=== PATIENT | female | born 1945 | race Caucasian/White ===

== ENCOUNTER → 2018-03-16 07:13 | Outpatient (CLI) | payer MEDICARE, OTHER, SELFPAY ==
[2018-03-16 08:50] LABS: Alanine Aminotransferase 130 IU/L (9-52); Albumin 4.1 g/dL (3.5-5.0); Albumin Globulin Ratio 1.3 (1.0-2.8); Alkaline Phosphatase 319 U/L (38-126); Aspartate Aminotransferase 133 IU/L (14-36); BUN Creatinine Ratio 11.8 (6-22); Bilirubin Total 1.4 mg/dL (0.2-1.3); Blood Urea Nitrogen 13 mg/dL (7-17); Calcium 9.6 mg/dL (8.4-10.2); Carbon Dioxide 30 mmol/L (22-32); Chloride 94 mmol/L (98-107); Cholesterol 190 mg/dL (140-199); Estimated Glomerular Filt Rate 48.7 mL/min (>60); Globulin 3.2 g/dL (1.7-4.1); Glucose 97 mg/dL (80-110); HDL Cholesterol 55 mg/dL (40-60); HEMOLYSIS < 15 (0-50); LDL Cholesterol Calculated 116 mg/dL (<100); Potassium 3.4 mmol/L (3.4-5.1); Sodium 132 mmol/L (137-145); Total Protein 7.3 g/dL (6.3-8.2); Triglycerides 93 mg/dL (35-150)
== END ==
PROVIDERS: PCP Physician Assistant; Visit Provider Physician Assistant
DX: I10 Essential (primary) hypertension (principal); E78.2 Mixed hyperlipidemia
CPT/HCPCS: 36415; 80053; 80061

== ENCOUNTER → 2020-11-14 10:11 | Outpatient (CLI) | payer MEDICARE, OTHER, SELFPAY ==
[2020-11-14] MEDS: COVID-19 VACC, Ad26(JANSSEN)/PF 0.5 ML IM (10:30)
== END ==
PROVIDERS: PCP Physician Assistant; Visit Provider Internal Medicine
DX: Z23 Encounter for immunization (principal)
CPT/HCPCS: 0031A; 91303

== ENCOUNTER 2022-05-21 08:47 | Emergency (ER) | payer MEDICARE, OTHER, SELFPAY ==
[2022-05-21] VITALS (34 sets, daily range): BP systolic 131–195; BP diastolic 63–86; PULSE 58–109; RESP 12–29; TEMP 36.4; O2SAT 95–100; BMI 21.2
--- NOTE | 2022-05-21 09:34 | ED_ITS ---
HPI - Abdominal Pain <Kenia DO Ortega - Last Filed: 05/22/22 06:51> General Chief Complaint: Abdominal Pain Stated Complaint: Severe abd pain Time Seen by Provider: 05/21/22 09:10 Source: patient Mode of arrival: Family Vehicle History of Present Illness HPI narrative: Patient is a 77-year-old female history of asthma presenting today with severe abdominal pain. She says over last few months she has actually been feeling more energized fatigue she has been able to do projects and finish them. However over the last 1 week she has had increasing abdominal pain weakness fatigue. She appears jaundice which neither she or her say they have noticed. She feels like she has all across abdominal pain. She feels extremely nauseous she is able to drink cristina wes. She is having gas and bowel moveme nts. She has a prior cholecystectomy. No fever or chills. Related Data Home Medications Medication Instructions Recorded Confirmed cholecalciferol (vitamin D3) 25 1,000 unit PO DAILY 03/22/18 04/03/22 mcg (1,000 unit) capsule multivitamin 1 tab PO DAILY 04/03/22 04/03/22 potassium chloride PO 04/03/22 04/03/22 Previous Rx's Medication Instructions Recorded atenolol 100 mg-chlorthalidone 25 1 tab PO QDAY #90 tabs 09/21/17 mg tablet albuterol sulfate 90 mcg/actuation 2 puff inhalation Q4-6H PRN 12/08/21 aerosol inhaler shortness of breath #18 grams fluticasone propionate 115 2 puff inhalation BID #1 ea 12/08/21 mcg-salmeterol 21 mcg/actuation HFA inhaler (Advair HFA) fluticasone propionate 115 2 inh inhalation ONCE #8 grams 01/19/22 mcg-salmeterol 21 mcg/actuation HFA inhaler (Advair HFA) fluticasone propionate 50 1 spray intranasal BID PRN nasal 01/19/22 mcg/actuation nasal congestion #16 grams spray,suspension azithromycin 250 mg tablet See Rx Instructions PO .COMPLEX 04/03/22 possible sinus or chest infection #6 tabs methylprednisolone 4 mg tablets in See Rx Instructions PO PER PKG DIR 04/03/22 a dose pack (Medrol (Jasper)) #21 ea montelukast 10 mg tablet 10 mg PO DAILY #90 tabs 04/03/22 (Singulair) Allergies Allergy/AdvReac Type Severity Reaction Status Date / Time Penicillins [PENICILLINS] Allergy Severe ANAPHYLACTIC Verified 05/21/22 09:23 SHOCK latex [LATEX] Allergy Intermediate RASH Verified 05/21/22 09:23 codeine [CODEINE] AdvReac Severe FALSE Verified 05/21/22 09:23 HEART ATTACK SYMPTOMS hydrocodone AdvReac Severe made me Verified 05/21/22 09:23 violently ill and did nothing for the pain Review of Systems <Kenia Vivas DO - Last Filed: 05/22/22 06:51> Review of Systems Narrative: GENERAL: Denies chills, fatigue, malaise, fever, sweats, travel HEENT: Denies sinus pain, ear pain, sore throat, difficulty swallowing, neck pain RESPIRATORY: Denies dyspnea, cough, wheezing, hemoptysis, sputum. CARDIOVASCULAR: Denies chest pain, palpitations, orthopnea, edema GASTROINTESTINAL: See HPI : Denies dysuria, frequency, incontinence, hematuria, urinary retention, flank pain. MUSCULOSKELETAL: Denies weakness, joint pain, or bony pain SKIN: No rash, no erythema, no pruritus NEUROLOGIC: Denies weakness, dizziness, headache, numbness, change in speech, confusion PSYCHIATRIC: No concerning psychosocial issues. 12 point review of systems is negative except for those stated above and HPI Patient History <Kenia Vivas DO - Last Filed: 05/22/22 06:51> Medical History Asthma CKD (chronic kidney disease) Nasal congestion Family History Father Hyperlipidemia Social History Smoking Status: Former smoker Tobacco: How many years used: 30 second hand exposure: Yes (my smokes a pipe once a day.) alcohol intake: former (social drinker in the past.) substance use type: marijuana (1 puff once every 6 weeks.) Smoking Status: Former smoker tobacco type: cigarettes alcohol intake frequency: 0-2 drinks per day Substance Use Type: does not use Exam <Kenia Vivas DO - Last Filed: 05/22/22 06:51> Initial Vital Signs Initial Vital Signs: Vital Signs Pulse Rate 107 H 05/21/22 09:12 Pulse Oximetry 98 05/21/22 09:12 GENERAL: 77-year-old female obviously jaundiced appears in pain HEENT: Head atraumatic,EOMI, pupils reactive, face symmetric, moist mucous membranes CARDIOVASCULAR: Regular rate and rhythm without murmurs, rubs or gallops. RESPIRATORY: Breath sounds equal bilaterally, no wheezes rales or rhonchi. ABDOMEN: Soft,l no fluid wave diffusely tender no distension right upper quadrant scar EXTREMITIES: Normal range of motion, no clubbing or edema. Neurovascularly intact NEUROLOGICAL: Alert and oriented x4.Normal gait and speech. SKIN: Warm, dry, no laceration, no petechiae, no rashes or lesions. <Dilcia Wood, DO - Last Filed: 05/22/22 06:09> Initial Vital Signs Initial Vital Signs: Vital Signs Pulse Rate 107 H 05/21/22 09:12 Pulse Oximetry 98 05/21/22 09:12 Course <Kenia Vivas, DO - Last Filed: 05/22/22 06:51> Orders Ordered: Discontinued Medications Heparin Sodium (Porcine) (Heparin 5,000 Unit/Ml Vial) 5,000 unit SUBCUT BID [facility] Last Admin: 05/21/22 22:46 Dose: 5,000 unit Documented By: MIMI Sodium Chloride (Normal Saline 0.9%) 1,000 mls @ 125 mls/hr IV CONT [facility] Last Admin: 05/21/22 12:34 Dose: Not Given Documented By: ANGEL Levofloxacin (Levaquin) 750 mg in 150 mls @ 100 mls/hr IV NOW ONE Stop: 05/21/22 17:10 Last Infusion: 05/21/22 18:37 Dose: 0 mls/hr Documented By: Admin: 05/21/22 16:14 Dose: 100 mls/hr Documented By: MIMI Sodium Chloride (Normal Saline 0.9%) 1,000 mls @ 125 mls/hr IV CONT [facility] Last Infusion: 05/22/22 00:14 Dose: 125 mls/hr Documented By: Admin: 05/21/22 17:45 Dose: 125 mls/hr Documented By: SHIVANI Levofloxacin (Levaquin) 750 mg in 150 mls @ 100 mls/hr IV Q24H [facility] Lorazepam (Lorazepam 2 Mg/Ml Inj) 0.5 mg IV NOW ONE Stop: 05/21/22 11:36 Last Admin: 05/21/22 13:58 Dose: 0.5 mg Documented By: MIMI Morphine Sulfate (Morphine 2 Mg/Ml Inj) 2 mg IV NOW ONE Stop: 05/21/22 10:16 Last Admin: 05/21/22 10:30 Dose: 2 mg Documented By: ANGEL Morphine Sulfate (Morphine 4 Mg/Ml Inj) 4 mg IV NOW ONE Stop: 05/21/22 11:52 Last Admin: 05/21/22 12:04 Dose: 4 mg Documented By: ANGEL Morphine Sulfate (Morphine 2 Mg/Ml Inj) 2 mg IV Q4HR PRN PRN Reason: Pain, Moderate (4-6) Last Admin: 05/21/22 22:45 Dose: 2 mg Documented By: Admin: 05/21/22 18:34 Dose: 2 mg Documented By: ANGEL Ondansetron HCl (Ondansetron 4 Mg/2 Ml Inj) 4 mg IV NOW ONE Stop: 05/21/22 10:16 Last Admin: 05/21/22 10:30 Dose: 4 mg Documented By: ANGEL Ondansetron HCl (Ondansetron 4 Mg/2 Ml Inj) 4 mg IV Q4HR PRN PRN Reason: Nausea And Vomiting Last Admin: 05/22/22 00:13 Dose: 4 mg Documented By: MIMI Vital Signs Vital signs: Vital Signs - 8 hr 05/21/22 23:00 Pulse Rate 64 Respiratory Rate 12 Pulse Oximetry 99 <Dilcia Wood, - Last Filed: 05/22/22 06:09> Orders Ordered: Discontinued Medications Heparin Sodium (Porcine) (Heparin 5,000 Unit/Ml Vial) 5,000 unit SUBCUT BID [facility] Last Admin: 05/21/22 22:46 Dose: 5,000 unit Documented By: MIMI Sodium Chloride (Normal Saline 0.9%) 1,000 mls @ 125 mls/hr IV CONT [facility] Last Admin: 05/21/22 12:34 Dose: Not Given Documented By: ANGEL Levofloxacin (Levaquin) 750 mg in 150 mls @ 100 mls/hr IV NOW ONE Stop: 05/21/22 17:10 Last Infusion: 05/21/22 18:37 Dose: 0 mls/hr Documented By: Admin: 05/21/22 16:14 Dose: 100 mls/hr Documented By: MIMI Sodium Chloride (Normal Saline 0.9%) 1,000 mls @ 125 mls/hr IV CONT [facility] Last Infusion: 05/22/22 00:14 Dose: 125 mls/hr Documented By: Admin: 05/21/22 17:45 Dose: 125 mls/hr Documented By: MIMI Levofloxacin (Levaquin) 750 mg in 150 mls @ 100 mls/hr IV Q24H [facility] Lorazepam (Lorazepam 2 Mg/Ml Inj) 0.5 mg IV NOW ONE Stop: 05/21/22 11:36 Last Admin: 05/21/22 13:58 Dose: 0.5 mg Documented By: MIMI Morphine Sulfate (Morphine 2 Mg/Ml Inj) 2 mg IV NOW ONE Stop: 05/21/22 10:16 Last Admin: 05/21/22 10:30 Dose: 2 mg Documented By: ANGEL Morphine Sulfate (Morphine 4 Mg/Ml Inj) 4 mg IV NOW ONE Stop: 05/21/22 11:52 Last Admin: 05/21/22 12:04 Dose: 4 mg Documented By: ANGEL Morphine Sulfate (Morphine 2 Mg/Ml Inj) 2 mg IV Q4HR PRN PRN Reason: Pain, Moderate (4-6) Last Admin: 05/21/22 22:45 Dose: 2 mg Documented By: Admin: 05/21/22 18:34 Dose: 2 mg Documented By: ANGEL Ondansetron HCl (Ondansetron 4 Mg/2 Ml Inj) 4 mg IV NOW ONE Stop: 05/21/22 10:16 Last Admin: 05/21/22 10:30 Dose: 4 mg Documented By: ANGEL Ondansetron HCl (Ondansetron 4 Mg/2 Ml Inj) 4 mg IV Q4HR PRN PRN Reason: Nausea And Vomiting Last Admin: 05/22/22 00:13 Dose: 4 mg Documented By: SHIVANI Consultations Consultation #1: Dr. Zaidi, GI at [facility] accepts for consultation as to talk the hosp italist. Time: 22:06 Consultation #2: hospitalist [facility], Dr. Vega accepts for transfer Time: 22:43 Vital Signs Vital signs: Vital Signs - 8 hr 05/21/22 23:00 Pulse Rate 64 Respiratory Rate 12 Pulse Oximetry 99 MDM - Abdominal Pain <Kenia Vivas DO - Last Filed: 05/22/22 06:51> Lab Data Result diagrams: 05/21/22 09:27 05/21/22 09:27 Labs: Lab Results 05/21/22 05/21/22 05/21/22 Range/Units 09: 09: 09:27 WBC 12.1 H (4.5-11.0) X10^3/uL RBC 4.64 (4.0-5.2) X10^6/uL Hgb 13.6 (12.0-16.0) g/dL Hct 39.5 (36-46) % MCV 85.0 (80-100) fL MCH 29.2 (26-34) PG MCHC 34.3 (30-36) % RDW 13.4 (11.6-14.8) % Plt Count 203 (150-400) X10^3/uL Neut % (Auto) 91.2 H (50-75) % Lymph % (Auto) 3.4 L (25-40) % Garrard % (Auto) 4.0 (3-14) % Eos % (Auto) 1.0 L (2-4) % Baso % (Auto) 0.4 (0-2) % Neut # (Auto) 53329 H (7214-8537) /uL Lymph # (Auto) 400 L (9815-0509) /uL Garrard # (Auto) 500 (0-900) /uL Eos # (Auto) 100 (0-450) /uL Baso # (Auto) 100 (0-100) /uL Sodium 132 L (137-145) mmol/L Potassium 3.6 (3.4-5.1) mmol/L Chloride 95 L (98-107) mmol/L Carbon Dioxide 21 L (22-32) mmol/L BUN 17 (7-17) mg/dL Creatinine 0.82 (0.52-1.04) mg/dL Estimated GFR > 60 (>60) mL/min BUN/Creatinine Ratio 20.7 (6-22) Glucose 130 H (80-110) mg/dL Lactate (0.7-2.1) mmol/L Calcium 9.6 (8.4-10.2) mg/dL Total Bilirubin 6.0 H (0.2-1.3) mg/dL AST 148 H (14-36) IU/L ALT 126 H (<35) IU/L Alkaline Phosphatase 359 H (38-126) U/L Ammonia (9-30) umol/L Total Creatine Kinase (30-135) U/L CK-MB (CK-2) CK-MB (CK-2) Rel Index Troponin I (0.01-0.034) ng/mL Total Protein 7.5 (6.3-8.2) g/dL Albumin 3.7 (3.5-5.0) g/dL Globulin 3.8 (1.7-4.1) g/dL Albumin/Globulin Ratio 1.0 (1.0-2.8) Lipase 102 (23-300) U/L Procalcitonin (<0.5) ng/mL SARS-CoV-2 (PCR) Negative (Negative) 05/21/22 05/21/22 05/21/22 Range/Units 09:27 09:27 09:27 WBC (4.5-11.0) X10^3/uL RBC (4.0-5.2) X10^6/uL Hgb (12.0-16.0) g/dL Hct (36-46) % MCV (80-100) fL MCH (26-34) PG MCHC (30-36) % RDW (11.6-14.8) % Plt Count (150-400) X10^3/uL Neut % (Auto) (50-75) % Lymph % (Auto) (25-40) % Garrard % (Auto) (3-14) % Eos % (Auto) (2-4) % Baso % (Auto) (0-2) % Neut # (Auto) (6231-6897) /uL Lymph # (Auto) (0282-8818) /uL Garrard # (Auto) (0-900) /uL Eos # (Auto) (0-450) /uL Baso # (Auto) (0-100) /uL Sodium (137-145) mmol/L Potassium (3.4-5.1) mmol/L Chloride (98-107) mmol/L Carbon Dioxide (22-32) mmol/L BUN (7-17) mg/dL Creatinine (0.52-1.04) mg/dL Estimated GFR (>60) mL/min BUN/Creatinine Ratio (6-22) Glucose (80-110) mg/dL Lactate 1.4 (0.7-2.1) mmol/L Calcium (8.4-10.2) mg/dL Total Bilirubin (0.2-1.3) mg/dL AST (14-36) IU/L ALT (<35) IU/L Alkaline Phosphatase (38-126) U/L Ammonia (9-30) umol/L Total Creatine Kinase 50 (30-135) U/L CK-MB (CK-2) TNP CK-MB (CK-2) Rel Index TNP Troponin I < 0.012 (0.01-0.034) ng/mL Total Protein (6.3-8.2) g/dL Albumin (3.5-5.0) g/dL Globulin (1.7-4.1) g/dL Albumin/Globulin Ratio (1.0-2.8) Lipase (23-300) U/L Procalcitonin 0.87 H (<0.5) ng/mL SARS-CoV-2 (PCR) (Negative) 05/21/22 Range/Units 09:42 WBC (4.5-11.0) X10^3/uL RBC (4.0-5.2) X10^6/uL Hgb (12.0-16.0) g/dL Hct (36-46) % MCV (80-100) fL MCH (26-34) PG MCHC (30-36) % RDW (11.6-14.8) % Plt Count (150-400) X10^3/uL Neut % (Auto) (50-75) % Lymph % (Auto) (25-40) % Garrard % (Auto) (3-14) % Eos % (Auto) (2-4) % Baso % (Auto) (0-2) % Neut # (Auto) (4888-7729) /uL Lymph # (Auto) (0642-9899) /uL Garrard # (Auto) (0-900) /uL Eos # (Auto) (0-450) /uL Baso # (Auto) (0-100) /uL Sodium (137-145) mmol/L Potassium (3.4-5.1) mmol/L Chloride (98-107) mmol/L Carbon Dioxide (22-32) mmol/L BUN (7-17) mg/dL Creatinine (0.52-1.04) mg/dL Estimated GFR (>60) mL/min BUN/Creatinine Ratio (6-22) Glucose (80-110) mg/dL Lactate (0.7-2.1) mmol/L Calcium (8.4-10.2) mg/dL Total Bilirubin (0.2-1.3) mg/dL AST (14-36) IU/L ALT (<35) IU/L Alkaline Phosphatase (38-126) U/L Ammonia < 9 L (9-30) umol/L Total Creatine Kinase (30-135) U/L CK-MB (CK-2) CK-MB (CK-2) Rel Index Troponin I (0.01-0.034) ng/mL Total Protein (6.3-8.2) g/dL Albumin (3.5-5.0) g/dL Globulin (1.7-4.1) g/dL Albumin/Globulin Ratio (1.0-2.8) Lipase (23-300) U/L Procalcitonin (<0.5) ng/mL SARS-CoV-2 (PCR) (Negative) Imaging Data CT scan - abdomen/pelvis: Radiologist's Impression: t: Enriqueta Vasquez MR#: [id number] : 1945 Acct:[id number] Age/Sex: 77 / F Date of Service: 05/21/22 Loc: ED Accession Number: [id number] ?? Procedure: CT chest abd pel w con Ordering Provider: Kenia Vivas D.O. PROCEDURE:? CT CHEST ABD PEL W CON ? INDICATIONS:? elevated bili, ab pain possible CA ? TECHNIQUE:? After the administration of intravenous contrast, 5 mm thick sections acquired from the lung apices to the symphysis.? 5 mm coronal and sagittal reformats were performed, with additional 7 mm MIP reformats through the lungs.? For radiation dose reduction, the following was used:? automated exposure control, adjustment of mA and/or kV according to patient size.? ? COMPARISON:? None. ? FINDINGS:? Image quality:? Excellent.? ? CHEST:? Lungs and pleura:? No dense consolidation.? No pleural effusions or pneumothorax.? Follow-up for pulmonary micro nodules is optional.? For example left lower lobe image .? There are calcified granulomas. ? Mediastinum:? There are borderline enlarged lymph nodes, for example precarinal node measures 12 millimeters in short axis.? No thoracic aortic aneurysm.? Coronary artery calcifications. ? Chest wall:? Thyroid is within normal limits. ? ? ABDOMEN:? Solid organs:? Calcified liver granuloma.? Cyst in segment 4. Diffuse intrahepatic biliary ductal dilation.? The CBD is dilated up to 14 millimeters.? The gallbladder is absent.? The remnant cystic duct is also dilated.? There is a stone at the ampulla measuring 4-5 millimeters. ? Prominence of the pancreatic duct.? No significant pancreatic fat stranding. Prominent spleen measuring 12 centimeters.? No discrete adrenal nodule.? Subcentimeter renal lesions are too small to characterize.? No hydronephrosis. ? Peritoneum and bowel:? No bowel obstruction.? There are colonic diverticula.? No ascites. ? Nodes and vessels:? There are atherosclerotic calcifications.? No lymph nodes enlarged by size criteria.? No aneurysm. ? Miscellaneous:? No ventral hernias.? ? ? PELVIS:? Genitourinary:? Normal bladder wall thickness.? Possible small fibroids.? Reproductive organs are not well evaluated on CT, without gross abnormality. ? Miscellaneous:? Possible right Bartholin's gland cyst, could be correlated with visualization. ? Bones:? Spondylosis without acute or suspicious osseous abnormality.? Height loss of some vertebral bodies, age indeterminate, probably chronic. ? IMPRESSION:? Dilated biliary tree with an obstructing stone at the ampulla.? The pancreatic duct is also mildly prominent without a discrete mass identified.? Consider ERCP.? MRCP could be obtained only if further imaging is needed.? ? Borderline enlarged thoracic lymph nodes as above, indeterminate.? No definite signs of metastatic disease.? Other incidental findings above.? Follow up imaging could be obtained at clinical discretion.? ? ? Dictated by: Grant Abdullahi M.D. on 05/21/2022 at 10:58 ? ? Approved by: Grant Abdullahi M.D. on 05/21/2022 at 11:11? MRCP: Radiologist's Impression: PROCEDURE:? MR ABDOMEN WO CON ? INDICATIONS:? dilated CBD elevated bili ? TECHNIQUE:? Coronal HASTE through the abdomen, axial 2-D FLASH in- and [id number], and breath-hold T2 FSE with fat saturation through the biliary system and pancreas.? Oblique coronal and axial thin-slice HASTE, radial thick-slab HASTE centered on the extrahepatic bile ducts.? ? ? Intravenous secretin:? Not requested.? ? COMPARISON:? [facility], CT, CT CHEST ABD PEL W CON, 05/21/2022, 10:37. ? FINDINGS:? Image quality:? Adequate.? ? Pancreas and biliary system:? An 8 millimeter stone is present at the downstream extrahepatic bile duct.? There is upstream extrahepatic and intrahepatic biliary ductal dilation.? Extrahepatic duct measures approximately 10-11 millimeters at the [facility]. ? No definite dilation of the main pancreatic duct.? No MR evidence of acute pancreatitis or drainable peripancreatic fluid collection. ? Gallbladder is surgically absent.? ? Other solid organs:? Liver is normal in size.? Spleen is normal in size.? No adrenal nodules.? Both kidneys are normal in size, without hydronephrosis.? ? Nodes and vessels:? No retroperitoneal or mesenteric adenopathy by size criteria.? Aorta and inferior vena cava are normal in size.? ? Bowel and peritoneum:? Large duodenal diverticulum.? Visualized large and small bowel is non-dilated.? No substantial free fluid.? ? Lung bases:? No basal pleural effusions.? ? ? Bones and soft tissues:? No ventral hernias.? Bone marrow is of normal overall signal.? ? IMPRESSION:? Choledocholithiasis with biliary ductal dilation as before.? ? ? Dictated by: Audie Aj M.D. on 05/21/2022 at 15:14? ECG Data Interpretation: Sinus tachycardia rate 101 TX interval [address] changes no priors to compare MDM Narrative Medical decision making narrative: The patient is obviously jaundiced with prior cholecystectomy. Concern for possible cancer verses choledocholithiasis. She is found have elevated bili fuller of 6.0 mild elevation of liver enzymes. Minimal leukocytosis. CT does show dilated common bile duct with 4-5mm stone at ampulla. Same is found on MRCP. Patient has mild elevation of procalcitonin of 0.84. She is given a dose antibiotics all Levaquin she has a severe allergy to penicillins. She overall remains awake and alert she does not appear toxic or septic. She is placed on multiple lists, due to severe critical bed shortage unable to be placed. Patient needs an ERCP. [facility] has also been consulted. Patient is given clear liquids it is unknown when she will be transferred or have her procedure. Signed out to Dr. Wood <Dilcia Wood, DO - Last Filed: 05/22/22 06:09> Lab Data Labs: Lab Results 05/21/22 05/21/22 05/21/22 Range/Units 09:27 09:27 09:27 WBC 12.1 H (4.5-11.0) X10^3/uL RBC 4.64 (4.0-5.2) X10^6/uL Hgb 13.6 (12.0-16.0) g/dL Hct 39.5 (36-46) % MCV 85.0 (80-100) fL MCH 29.2 (26-34) PG MCHC 34.3 (30-36) % RDW 13.4 (11.6-14.8) % Plt Count 203 (150-400) X10^3/uL Neut % (Auto) 91.2 H (50-75) % Lymph % (Auto) 3.4 L (25-40) % Garrard % (Auto) 4.0 (3-14) % Eos % (Auto) 1.0 L (2-4) % Baso % (Auto) 0.4 (0-2) % Neut # (Auto) 18548 H (7306-7719) /uL Lymph # (Auto) 400 L (2880-6939) /uL Garrard # (Auto) 500 (0-900) /uL Eos # (Auto) 100 (0-450) /uL Baso # (Auto) 100 (0-100) /uL Sodium 132 L (137-145) mmol/L Potassium 3.6 (3.4-5.1) mmol/L Chloride 95 L (98-107) mmol/L Carbon Dioxide 21 L (22-32) mmol/L BUN 17 (7-17) mg/dL Creatinine 0.82 (0.52-1.04) mg/dL Estimated GFR > 60 (>60) mL/min BUN/Creatinine Ratio 20.7 (6-22) Glucose 130 H (80-110) mg/dL Lactate (0.7-2.1) mmol/L Calcium 9.6 (8.4-10.2) mg/dL Total Bilirubin 6.0 H (0.2-1.3) mg/dL AST 148 H (14-36) IU/L ALT 126 H (<35) IU/L Alkaline Phosphatase 359 H (38-126) U/L Ammonia (9-30) umol/L Total Creatine Kinase (30-135) U/L CK-MB (CK-2) CK-MB (CK-2) Rel Index Troponin I (0.01-0.034) ng/mL Total Protein 7.5 (6.3-8.2) g/dL Albumin 3.7 (3.5-5.0) g/dL Globulin 3.8 (1.7-4.1) g/dL Albumin/Globulin Ratio 1.0 (1.0-2.8) Lipase 102 (23-300) U/L Procalcitonin (<0.5) ng/mL SARS-CoV-2 (PCR) Negative (Negative) 05/21/22 05/21/22 05/21/22 Range/Units 09:27 09:27 09:27 WBC (4.5-11.0) X10^3/uL RBC (4.0-5.2) X10^6/uL Hgb (12.0-16.0) g/dL Hct (36-46) % MCV (80-100) fL MCH (26-34) PG MCHC (30-36) % RDW (11.6-14.8) % Plt Count (150-400) X10^3/uL Neut % (Auto) (50-75) % Lymph % (Auto) (25-40) % Garrard % (Auto) (3-14) % Eos % (Auto) (2-4) % Baso % (Auto) (0-2) % Neut # (Auto) (3049-8743) /uL Lymph # (Auto) (4372-9188) /uL Garrard # (Auto) (0-900) /uL Eos # (Auto) (0-450) /uL Baso # (Auto) (0-100) /uL Sodium (137-145) mmol/L Potassium (3.4-5.1) mmol/L Chloride (98-107) mmol/L Carbon Dioxide (22-32) mmol/L BUN (7-17) mg/dL Creatinine (0.52-1.04) mg/dL Estimated GFR (>60) mL/min BUN/Creatinine Ratio (6-22) Glucose (80-110) mg/dL Lactate 1.4 (0.7-2.1) mmol/L Calcium (8.4-10.2) mg/dL Total Bilirubin (0.2-1.3) mg/dL AST (14-36) IU/L ALT (<35) IU/L Alkaline Phosphatase (38-126) U/L Ammonia (9-30) umol/L Total Creatine Kinase 50 (30-135) U/L CK-MB (CK-2) TNP CK-MB (CK-2) Rel Index TNP Troponin I < 0.012 (0.01-0.034) ng/mL Total Protein (6.3-8.2) g/dL Albumin (3.5-5.0) g/dL Globulin (1.7-4.1) g/dL Albumin/Globulin Ratio (1.0-2.8) Lipase (23-300) U/L Procalcitonin 0.87 H (<0.5) ng/mL SARS-CoV-2 (PCR) (Negative) 05/21/22 Range/Units 09:42 WBC (4.5-11.0) X10^3/uL RBC (4.0-5.2) X10^6/uL Hgb (12.0-16.0) g/dL Hct (36-46) % MCV (80-100) fL MCH (26-34) PG MCHC (30-36) % RDW (11.6-14.8) % Plt Count (150-400) X10^3/uL Neut % (Auto) (50-75) % Lymph % (Auto) (25-40) % Garrard % (Auto) (3-14) % Eos % (Auto) (2-4) % Baso % (Auto) (0-2) % Neut # (Auto) (1558-0825) /uL Lymph # (Auto) (8383-3752) /uL Garrard # (Auto) (0-900) /uL Eos # (Auto) (0-450) /uL Baso # (Auto) (0-100) /uL Sodium (137-145) mmol/L Potassium (3.4-5.1) mmol/L Chloride (98-107) mmol/L Carbon Dioxide (22-32) mmol/L BUN (7-17) mg/dL Creatinine (0.52-1.04) mg/dL Estimated GFR (>60) mL/min BUN/Creatinine Ratio (6-22) Glucose (80-110) mg/dL Lactate (0.7-2.1) mmol/L Calcium (8.4-10.2) mg/dL Total Bilirubin (0.2-1.3) mg/dL AST (14-36) IU/L ALT (<35) IU/L Alkaline Phosphatase (38-126) U/L Ammonia < 9 L (9-30) umol/L Total Creatine Kinase (30-135) U/L CK-MB (CK-2) CK-MB (CK-2) Rel Index Troponin I (0.01-0.034) ng/mL Total Protein (6.3-8.2) g/dL Albumin (3.5-5.0) g/dL Globulin (1.7-4.1) g/dL Albumin/Globulin Ratio (1.0-2.8) Lipase (23-300) U/L Procalcitonin (<0.5) ng/mL SARS-CoV-2 (PCR) (Negative) [facility] Narrative Medical decision making narrative: The patient is obviously jaundiced with prior cholecystectomy. Concern for possible cancer verses choledocholithiasis. She is found have elevated bilirubin of 6.0 mild elevation of liver enzymes. Minimal leukocytosis. CT does show dilated common bile duct with 4-5mm stone at ampulla. Same is found on MRCP. Patient has mild elevation of procalcitonin of 0.84. She is given a dose antibiotics all Levaquin she has a severe allergy to penicillins. She overall remains awake and alert she does not appear toxic or septic. She is placed on multiple lists, due to severe critical bed shortage unable to be placed. Patient needs an ERCP. CC has also been consulted. Patient is given clear liquids it is unknown when she will be transferred or have her procedure. Signed out to Dr. Wood 05/21/22 Nina: Patient signed out to myself by Dr. Vivas. Patient was seen independently evaluated by myself she has had prior cholecystectomy, jaundiced on exam and has been found to have choledocholithiasis on MRCP with a bilirubin of 6 and mildly elevated liver enzymes with mild leukocytosis and positive procalcitonin. Patient does have blood cultures pending. Was given Levaquin re ceived 1st dose today, patient does not appear to be septic but has been continued to be monitored. Patient notes that she quit her atenolol/chlorthalidone is only taking her asthma medications. She states she lost a lot of weight so was no longer in her antihypertensives. She denies any aspirin, Plavix or other thinners. Case was discussed with gastroenterology and the hospitalist at [facility] patient was accepted for transfer for ERCP. Discharge Plan Departure Patient Disposition: [facility] Clinical Impression: Choledocholithiasis Prescriptions: No Action cholecalciferol (vitamin D3) 1,000 unit capsule 1,000 unit PO DAILY Advair HFA 115-21 mcg/actuation HFA aerosol inhaler 2 puff Inhalation BID Qty: 1 0RF albuterol sulfate 90 mcg/actuation HFA aerosol inhaler 2 puff INHALATION Q4-6H PRN (Reason: shortness of breath) Qty: 18 1RF Rx Instructions: administer with spacer Advair HFA 115-21 mcg/actuation HFA aerosol inhaler 2 inh inhalation ONCE Qty: 8 2RF fluticasone propionate 50 mcg/actuation spray,suspension 1 spray intranasal BID PRN (Reason: nasal congestion) Qty: 16 0RF Rx Instructions: administer into each nostril atenolol-chlorthalidone 100 MG/25 MG tablet 1 tab PO QDAY Qty: 90 3RF multivitamin Tablet 1 tab PO DAILY potassium chloride PO montelukast [Singulair] 10 mg tablet 10 mg PO DAILY Qty: 90 1RF azithromycin 250 mg tablet See Rx Instructions PO .COMPLEX Qty: 6 0RF Rx Instructions: For 250 mg dose pack: take 500 mg today (day 1), then 250 mg for 4 days (days 2-5) by mouth methylprednisolone [Medrol (Jasper)] 4 mg tablets,dose pack See Rx Instructions PO PER PKG DIR Qty: 21 0RF Rx Instructions: STEROID PER REQUEST BY MOUTH PER PACKAGE DIRECTION Referrals: Bob Richter MD [Primary Care Provider] -
[2022-05-21 09:40] LABS: Hematocrit 39.5 % (36-46); Hemoglobin 13.6 g/dL (12.0-16.0); Mean Corpuscular Hemoglobin 29.2 PG (26-34); Red Blood Cell Count 4.64 X10^6/uL (4.0-5.2); White Blood Cell Count 12.1 X10^3/uL (4.5-11.0)
[2022-05-21 09:41] LABS: Add Manual Diff / Slide Review NO; Basophils Absolute Auto 100 /uL (0-100); Basophils Percent Auto 0.4 % (0-2); Eosinophils Absolute Auto 100 /uL (0-450); Lymphocytes Absolute Auto 400 /uL (1100-4500); Lymphocytes Percent Auto 3.4 % (25-40); Mean Corpuscular HGB Conc 34.3 % (30-36); Monocytes Absolute Auto 500 /uL (0-900); Neutrophils Absolute Auto 11000 /uL (1500-7000); Neutrophils Percent Auto 91.2 % (50-75); Platelet Count 203 X10^3/uL (150-400); Red Cell Distribution Width 13.4 % (11.6-14.8)
[2022-05-21 09:59] LABS: Lactate (Lactic Acid) 1.4 mmol/L (0.7-2.1)
[2022-05-21 10:00] LABS: Creatine Kinase 50 U/L (30-135)
[2022-05-21 10:02] LABS: Alanine Aminotransferase 126 IU/L (<35); Albumin 3.7 g/dL (3.5-5.0); Alkaline Phosphatase 359 U/L (38-126); Aspartate Aminotransferase 148 IU/L (14-36); BUN Creatinine Ratio 20.7 (6-22); Blood Urea Nitrogen 17 mg/dL (7-17); Calcium 9.6 mg/dL (8.4-10.2); Carbon Dioxide 21 mmol/L (22-32); Chloride 95 mmol/L (98-107); Estimated Glomerular Filt Rate > 60 mL/min (>60); Globulin 3.8 g/dL (1.7-4.1); Glucose 130 mg/dL (80-110); HEMOLYSIS 29 (0-50); Lipase 102 U/L (23-300); Potassium 3.6 mmol/L (3.4-5.1); Sodium 132 mmol/L (137-145); Total Protein 7.5 g/dL (6.3-8.2)
[2022-05-21 10:04] LABS: COVID19 -Nasal RAPID Negative (Negative)
[2022-05-21 10:05] LABS: Ammonia (NH3) < 9 umol/L (9-30)
[2022-05-21 10:11] LABS: Troponin I < 0.012 ng/mL (0.01-0.034)
[2022-05-21 10:17] LABS: Procalcitonin 0.87 ng/mL (<0.5)
--- NOTE | 2022-05-21 10:28 | DI.CT.S_ITS ---
PROCEDURE: CT CHEST ABD PEL W CON INDICATIONS: elevated bili, ab pain possible CA TECHNIQUE: After the administration of intravenous contrast, 5 mm thick sections acquired from the lung apices to the symphysis. 5 mm coronal and sagittal reformats were performed, with additional 7 mm MIP reformats through the lungs. For radiation dose reduction, the following was used: automated exposure control, adjustment of mA and/or kV according to patient size. COMPARISON: None. FINDINGS: Image quality: Excellent. CHEST: Lungs and pleura: No dense consolidation. No pleural effusions or pneumothorax. Follow-up for pulmonary micro nodules is optional. For example left lower lobe image . There are calcified granulomas. Mediastinum: There are borderline enlarged lymph nodes, for example precarinal node measures 12 millimeters in short axis. No thoracic aortic aneurysm. Coronary artery calcifications. Chest wall: Thyroid is within normal limits. ABDOMEN: Solid organs: Calcified liver granuloma. Cyst in segment 4. Diffuse intrahepatic biliary ductal dilation. The CBD is dilated up to 14 millimeters. The gallbladder is absent. The remnant cystic duct is also dilated. There is a stone at the ampulla measuring 4-5 millimeters. Prominence of the pancreatic duct. No significant pancreatic fat stranding. Prominent spleen measuring 12 centimeters. No discrete adrenal nodule. Subcentimeter renal lesions are too small to characterize. No hydronephrosis. Peritoneum and bowel: No bowel obstruction. There are colonic diverticula. No ascites. Nodes and vessels: There are atherosclerotic calcifications. No lymph nodes enlarged by size criteria. No aneurysm. Miscellaneous: No ventral hernias. PELVIS: Genitourinary: Normal bladder wall thickness. Possible small fibroids. Reproductive organs are not well evaluated on CT, without gross abnormality. Miscellaneous: Possible right Bartholin's gland cyst, could be correlated with visualization. Bones: Spondylosis without acute or suspicious osseous abnormality. Height loss of some vertebral bodies, age indeterminate, probably chronic. IMPRESSION: Dilated biliary tree with an obstructing stone at the ampulla. The pancreatic duct is also mildly prominent without a discrete mass identified. Consider ERCP. MRCP could be obtained only if further imaging is needed. Borderline enlarged thoracic lymph nodes as above, indeterminate. No definite signs of metastatic disease. Other incidental findings above. Follow up imaging could be obtained at clinical discretion. Dictated by: Grant Abdullahi M.D. on 05/21/2022 at 10:58 Approved by: Grant Abdullahi M.D. on 05/21/2022 at 11:11
[2022-05-21] MEDS: MORPHINE 2 MG/ML INJ IV ×3 (10:30→22:45)
[2022-05-21] MEDS: ONDANSETRON 4 MG/2 ML INJ IV (10:30)
[2022-05-21] MEDS: MORPHINE 4 MG/ML INJ IV (12:04)
[2022-05-21] MEDS: LORazepam 2 MG/ML INJ 0.5 MG IV (13:58)
--- NOTE | 2022-05-21 14:32 | DI.MRI.S_ITS ---
PROCEDURE: MR ABDOMEN WO CON INDICATIONS: dilated CBD elevated bili TECHNIQUE: Coronal HASTE through the abdomen, axial 2-D FLASH in- and [id number], and breath-hold T2 FSE with fat saturation through the biliary system and pancreas. Oblique coronal and axial thin-slice HASTE, radial thick-slab HASTE centered on the extrahepatic bile ducts. Intravenous secretin: Not requested. COMPARISON: [facility], CT, CT CHEST ABD PEL W CON, 05/21/2022, 10:37. FINDINGS: Image quality: Adequate. Pancreas and biliary system: An 8 millimeter stone is present at the downstream extrahepatic bile duct. There is upstream extrahepatic and intrahepatic biliary ductal dilation. Extrahepatic duct measures approximately 10-11 millimeters at the charity hepatis. No definite dilation of the main pancreatic duct. No MR evidence of acute pancreatitis or drainable peripancreatic fluid collection. Gallbladder is surgically absent. Other solid organs: Liver is normal in size. Spleen is normal in size. No adrenal nodules. Both kidneys are normal in size, without hydronephrosis. Nodes and vessels: No retroperitoneal or mesenteric adenopathy by size criteria. Aorta and inferior vena cava are normal in size. Bowel and peritoneum: Large duodenal diverticulum. Visualized large and small bowel is non-dilated. No substantial free fluid. Lung bases: No basal pleural effusions. Bones and soft tissues: No ventral hernias. Bone marrow is of normal overall signal. IMPRESSION: Choledocholithiasis with biliary ductal dilation as before. Dictated by: Audie Aj M.D. on 05/21/2022 at 15:14 Approved by: Audie Aj M.D. on 05/21/2022 at 15:30
[2022-05-21] MEDS: levoFLOXacin 750 MG/150 ML PIGGYBACK 100 MG IV (16:14)
[2022-05-21] MEDS: SODIUM CHLORIDE 0.9% 1,000 ML 125 ML IV (17:45)
--- NOTE | 2022-05-21 19:11 | PC.NURSE ---
Patient up to restroom with standby assistance. Tolerated well. Patient repositioned into hospital bed for the night. Provided chicken broth, clear liquid diet ok per Dr Vivas. Patient call light in reach.
[2022-05-21] MEDS: HEPARIN 5,000 UNIT/ML VIAL 5000 UNIT SUBCUT (22:46)
--- NOTE | 2022-05-21 23:40 | PC.NURSE ---
Report given to Ramses AWAN, transportation set up. Patient updated.
--- NOTE | 2022-05-22 00:10 | PC.NURSE ---
Emesis after moving from hospital bed to stretcher. Reports easing up after emesis. Approx 200 bile.
[2022-05-22] MEDS: ONDANSETRON 4 MG/2 ML INJ IV (00:13)
== END 2022-05-22 00:24 | disposition short-term general hospital (02) ==
PROVIDERS: Emergency Medicine; Emergency Provider Emergency Medicine; PCP Pediatrics
DX: K80.50 Calculus of bile duct without cholangitis or cholecystitis without obstruction (principal); R79.89 Other specified abnormal findings of blood chemistry; R11.2 Nausea with vomiting, unspecified; Z20.822 Contact with and (suspected) exposure to COVID-19
CPT/HCPCS: 36415; 71260; 74177; 74181; 80053; 82140; 82550; 83605; 83690; 84145; 84484; 85025; 87040; 87635; 93005; 96361; 96365; 96366; 96375; 96376; 99285; C9803; J1644; J1956; J2060; J2270; J2405; Q9967

== ENCOUNTER → 2023-07-06 08:01 | Outpatient (CLI) | payer MEDICARE, OTHER, SELFPAY ==
[2023-07-06 09:15] LABS: Add Manual Diff / Slide Review NO; Basophils Absolute Auto 100 /uL (0-100); Basophils Percent Auto 1.3 % (0-2); Eosinophils Absolute Auto 700 /uL (0-450); Eosinophils Percent Auto 10.7 % (2-4); Hematocrit 35.5 % (36-46); Hemoglobin 12.3 g/dL (12.0-16.0); Lymphocytes Absolute Auto 1700 /uL (1100-4500); Lymphocytes Percent Auto 28.1 % (25-40); Mean Corpuscular HGB Conc 34.6 % (30-36); Mean Corpuscular Hemoglobin 30.3 PG (26-34); Mean Corpuscular Volume 87.5 fL (80-100); Monocytes Absolute Auto 400 /uL (0-900); Monocytes Percent Auto 6.1 % (3-14); Neutrophils Absolute Auto 3300 /uL (1500-7000); Neutrophils Percent Auto 53.8 % (50-75); Platelet Count 200 X10^3/uL (150-400); Red Blood Cell Count 4.06 X10^6/uL (4.0-5.2); Red Cell Distribution Width 13.3 % (11.6-14.8); White Blood Cell Count 6.1 X10^3/uL (4.5-11.0)
[2023-07-06 09:41] LABS: Alanine Aminotransferase 14 IU/L (<35); Albumin 3.9 g/dL (3.5-5.0); Albumin Globulin Ratio 1.4 (1.0-2.8); Alkaline Phosphatase 73 U/L (38-126); Aspartate Aminotransferase 29 IU/L (14-36); Bilirubin Total 0.6 mg/dL (0.2-1.3); Blood Urea Nitrogen 15 mg/dL (7-17); Calcium 9.7 mg/dL (8.4-10.2); Carbon Dioxide 28 mmol/L (22-32); Chloride 93 mmol/L (98-107); Estimated Glomerular Filt Rate 58 mL/min (>60); Globulin 2.8 g/dL (1.7-4.1); Glucose 88 mg/dL (80-110); HEMOLYSIS < 15 (0-50); Potassium 3.9 mmol/L (3.4-5.1); Sodium 128 mmol/L (137-145); Total Protein 6.7 g/dL (6.3-8.2)
== END ==
PROVIDERS: PCP Family Medicine; Referring Provider Family Medicine; Visit Provider Family Medicine
DX: R74.8 Abnormal levels of other serum enzymes (principal); N18.9 Chronic kidney disease, unspecified; E78.2 Mixed hyperlipidemia; I10 Essential (primary) hypertension
CPT/HCPCS: 36415; 80053; 85025

== ENCOUNTER → 2023-10-30 12:32 | Outpatient (CLI) | payer MEDICARE, OTHER, SELFPAY ==
[2023-10-30 14:12] LABS: COVID-19 CEPHEID 4-PLEX PCR Negative (Negative); Influenza A - CEPHEID Flu A NEGATIVE (NEGATIVE); Influenza B - CEPHEID Flu B NEGATIVE (NEGATIVE); Respiratory Syncytial Virus Negative (Negative)
== END ==
PROVIDERS: PCP Family Medicine; Visit Provider Registered Nurse
DX: R52 Pain, unspecified (principal); R50.9 Fever, unspecified; R19.7 Diarrhea, unspecified; R53.1 Weakness
CPT/HCPCS: 0241U

== ENCOUNTER 2023-11-06 12:39 | Inpatient (IN) | payer MEDICARE, OTHER, SELFPAY ==
[2023-11-06 13:00] VITALS: BP 113/57; PULSE 70; RESP 18; TEMP 36.4; O2SAT 99; BMI 23.1
--- NOTE | 2023-11-06 13:32 | ED_ITS ---
<Statement entered by Yves Morales MD - 11/06/23 19:06> I spoke with LETA about this patient and recommended admission, with admission as detailed above. HPI - Back Pain/Injury General Chief Complaint: Back Pain/Injury Stated Complaint: pain in pelvis and legs Time Seen by Provider: 11/06/23 13:10 Source: patient History of Present Illness HPI Narrative: This is a 78-year-old female presenting to the emergency department complaining of a radiating pain that is affecting her upper thighs. She also reports some pelvic pain as well as 2 days ago having dysuria although no dysuria or urinary frequency now. She states that this all began about a week ago after she had a ?stomach bug? with nausea and vomiting as well as diarrhea. The GI symptoms have improved but she was reporting some pelvic pain that ?moves all over? affecting her thighs currently. Worse at night. Denies any nausea, vomiting, lightheadedness, chest pain, shortness of breath, or any other concerning signs or symptoms. Denies any vaginal discharge. Related Data Home Medications Medication Instructions Recorded Confirmed cholecalciferol (vitamin D3) 25 1,000 unit PO DAILY 03/22/18 10/30/23 mcg (1,000 unit) capsule multivitamin 1 tab PO DAILY 04/03/22 10/30/23 potassium chloride PO 04/03/22 10/30/23 Previous Rx's Medication Instructions Recorded fluticasone propionate 50 1 spray intranasal BID PRN nasal 01/19/22 mcg/actuation nasal congestion #16 grams spray,suspension ascorbic acid (vitamin C) 1 g PO Q6H PRN constipation #113 05/30/22 grams docusate sodium 100 mg capsule 100 mg PO DAILY PRN constipation 05/30/22 (DulcoEase) #30 caps magnesium oxide 500 mg capsule 500 mg PO BID PRN constipation #90 05/30/22 caps albuterol sulfate 90 mcg/actuation 2 puff inhalation Q4-6H PRN 01/28/23 aerosol inhaler shortness of breath #36 grams montelukast 10 mg tablet 10 mg PO DAILY #90 tabs 09/03/23 (Singulair) budesonide-formoterol HFA 80 1 inh inhalation BID #10.2 grams 09/21/23 mcg-4.5 mcg/actuation aerosol inhaler (Symbicort) carvedilol 3.125 mg tablet 3.125 mg PO BID #180 tabs 09/21/23 atenolol 100 mg-chlorthalidone 25 1 tab PO QDAY #90 tabs 10/09/23 mg tablet levothyroxine 25 mcg tablet 25 mcg PO DAILY #90 tabs 10/09/23 Allergies Allergy/AdvReac Type Severity Reaction Status Date / Time Penicillins [PENICILLINS] Allergy Severe ANAPHYLACTIC Verified 10/30/23 12:21 SHOCK latex [LATEX] Allergy Intermediate RASH Verified 10/30/23 12:21 codeine [CODEINE] AdvReac Severe FALSE Verified 10/30/23 12:21 HEART ATTACK SYMPTOMS hydrocodone AdvReac Severe made me Verified 10/30/23 12:21 violently ill and did nothing for the pain Review of Systems Review of Systems Narrative: GENERAL: Denies chills, fatigue, malaise, fever, sweats. HEENT: Denies sinus pain, ear pain, sore throat, difficulty swallowing, dizziness. RESPIRATORY: Denies dyspnea, cough, wheezing, hemoptysis, sputum. CARDIOVASCULAR: Denies chest pain, palpitations, orthopnea, edema, GASTROINTESTINAL: Denies nausea, vomiting, abdominal pain, diarrhea, constipation, melena. : Reports some pelvic pain, Denies dysuria, frequency, incontinence, hematuria, urinary retention. MUSCULOSKELETAL: Reports upper thigh pain, denies weakness, joint pain, or bony pain SKIN: Denies rash, skin lesions, or other NEUROLOGIC: Denies weakness, headache, numbness, change in speech, confusion, seizures, incoordination. PSYCHIATRIC: No concerning psychosocial issues. 12 point review of systems is negative except for those stated above Patient History Medical History Essential hypertension Bilateral leg edema Asthma Nasal congestion CKD (chronic kidney disease) Family History Father Hyperlipidemia Social History Smoking Status: Former smoker Tobacco: How many years used: 30 second hand exposure: Yes (my smokes a pipe once a day.) alcohol intake: former (social drinker in the past.) substance use type: marijuana (1 puff once every 6 weeks.) Smoking Status: Former smoker tobacco type: cigarettes alcohol intake frequency: 0-2 drinks per day Substance Use Type: does not use Exam Narrative Exam Narrative: GENERAL: Well-developed patient, in mild distress. HEAD: Atraumatic. Normocephalic. EYES: Pupils equal round and reactive. Extraocular motions intact. No scleral icterus. No injection or drainage. ENT: Nose without bleeding, purulent drainage. Throat without erythema, tonsillar hypertrophy or exudate. Airway patent. NECK: Trachea midline. Non tender EXTREMITIES: No edema or joint tenderness. NEURO: AOx3. SKIN: No rash or erythema of visible areas CARDIOVASCULAR: Regular rate and rhythm without murmurs, gallops, or rubs. RESPIRATORY: Clear to auscultation. Breath sounds equal bilaterally. No wheezes, rales, or rhonchi. GASTROINTESTINAL: Abdomen soft, non-tender, nondistended. BACK: Nontender without deformity or crepitance. No flank tenderness. Initial Vital Signs Initial Vital Signs: Vital Signs Temperature 97.5 F L 11/06/23 13:00 Pulse Rate 70 11/06/23 13:00 Respiratory Rate 18 11/06/23 13:00 Blood Pressure 113/57 L 11/06/23 13:00 Pulse Oximetry 99 11/06/23 13:00 Oxygen Delivery Method Room Air 11/06/23 13:00 Course Orders Ordered: ED Orders 11/06/23 14:17 CBC Auto Diff [Complete Blood Count AUTO DIFF] Stat CMP [Comprehensive Metabolic Panel] Stat 11/06/23 15:05 Sodium Urine Random Stat Urinalysis and Microscopic Stat 11/06/23 16:44 CT abdomen pelvis wo con Stat Discontinued Medications Sodium Chloride (Normal Saline 0.9%) 1,000 mls @ 1,000 mls/hr IV BOLUS ONE Stop: 11/06/23 16:27 Last Infusion: 11/06/23 16:49 Dose: 1,000 mls/hr Documented By: Admin: 11/06/23 15:38 Dose: 1,000 mls/hr Documented By: RB POTASSIUM CHLORIDE IN WATER (Potassium Cl 10 Meq/100 Ml Nicole) 10 meq in 100 mls @ 100 mls/hr IV Q1H MANUELITO Stop: 11/06/23 17:29 Last Infusion: 11/06/23 17:07 Dose: 100 mls/hr Documented By: Infusion: 11/06/23 16:51 Dose: 0 mls/hr Documented By: Admin: 11/06/23 16:50 Dose: 100 mls/hr Documented By: Infusion: 11/06/23 16:49 Dose: Infused Documented By: Admin: 11/06/23 15:38 Dose: 100 mls/hr Documented By: RB Potassium Chloride (Potassium Chloride 20 Meq/15 Ml Udc) 40 meq PO NOW ONE Stop: 11/06/23 15:29 Last Admin: 11/06/23 15:40 Dose: 40 meq Documented By: RB Vital Signs Vital signs: Vital Signs - 8 hr 11/06/23 13:00 11/06/23 14:06 11/06/23 15:33 Temperature 97.5 F L 97.8 F 98.3 F Pulse Rate 70 68 67 Respiratory Rate 18 18 18 Blood Pressure 113/57 L 140/62 132/61 Pulse Oximetry 99 99 100 Oxygen Delivery Method Room Air Room Air Room Air 11/06/23 17:08 Temperature 98.7 F Pulse Rate 70 Respiratory Rate 20 Blood Pressure 126/71 Pulse Oximetry 97 Oxygen Delivery Method Room Air MDM - Back Pain/Injury Lab Data 11/06/23 14:17 11/06/23 14:17 Labs: Lab Results 11/06/23 11/06/23 Range/Units 14:17 15:05 WBC 9.1 (4.5-11.0) X10^3/uL RBC 4.06 (4.0-5.2) X10^6/uL Hgb 11.9 L (12.0-16.0) g/dL Hct 33.6 L (36-46) % MCV 82.9 (80-100) fL MCH 29.4 (26-34) PG MCHC 35.5 (30-36) % RDW 12.8 (11.6-14.8) % Plt Count 327 (150-400) X10^3/uL Neut % (Auto) 57.0 (50-75) % Lymph % (Auto) 20.3 L (25-40) % [place] % (Auto) 6.2 (3-14) % Eos % (Auto) 15.3 H (2-4) % Baso % (Auto) 1.2 (0-2) % Neut # (Auto) 5200 (9797-9764) /uL Lymph # (Auto) 1800 (5147-2747) /uL [place] # (Auto) 600 (0-900) /uL Eos # (Auto) 1400 H (0-450) /uL Baso # (Auto) 100 (0-100) /uL Sodium 123 L (137-145) mmol/L Potassium 3.0 L (3.4-5.1) mmol/L Chloride 88 L (98-107) mmol/L Carbon Dioxide 27 (22-32) mmol/L BUN 22 H (7-17) mg/dL Creatinine 0.86 (0.52-1.04) mg/dL Estimated GFR > 60 (>60) mL/min BUN/Creatinine Ratio 25.6 H (6-22) Glucose 147 H (80-110) mg/dL Calcium 9.6 (8.4-10.2) mg/dL Total Bilirubin 0.9 (0.2-1.3) mg/dL AST 28 (14-36) IU/L ALT 19 (<35) IU/L Alkaline Phosphatase 89 (38-126) U/L Total Protein 7.2 (6.3-8.2) g/dL Albumin 3.8 (3.5-5.0) g/dL Globulin 3.4 (1.7-4.1) g/dL Albumin/Globulin Ratio 1.1 (1.0-2.8) Urine Color Yellow Urine Appearance Clear Urine pH 7.5 (4.5-8.0) Ur Specific [place] 1.010 (1.000-1.035) Urine Protein Negative (Negative) Urine Glucose (UA) Negative (Negative) g/dL Urine Ketones Negative (NEGATIVE) Urine Occult Blood Negative (Negative) Urine Nitrate Negative (Negative) Urine Bilirubin Negative (NEGATIVE) Urine Urobilinogen 2.0 H (0.2) E.U./dL Ur Leukocyte Esterase Negative (NEGATIVE) Urine RBC None seen (0-5/HPF) Urine WBC None seen (0-5/HPF) Ur Squamous Epith Cells 0-1 /hpf (0-5/HPF) Urine Bacteria Occasional (0-1) (None) Ur Culture Indicated? Cult not indicated Vol Urine Centrifuged 10ml (spun) Ur Random Sodium 87 (30-90) mmol/L Imaging Data CT scan - abdomen/pelvis: Radiologist's Impression: [address] [address] [address] Scan Report Signed Patient: Enriqueta Vasquez MR#: [id number] : 1945 Acct:[id number] Age/Sex: 78 / F Date of Service: 11/06/23 Loc: ED Accession Number: [id number] Procedure: CT abdomen pelvis wo con Ordering Provider: Wil Gonzales P.A-C PROCEDURE: CT ABDOMEN PELVIS WO CON INDICATIONS: r/o hydronephrosis + pelvic pain TECHNIQUE: Axial sections were acquired from the lung bases to the pubic symphysis. Coronal and sagittal reformats were performed. For radiation dose reduction, the following was used: automated exposure control, adjustment of mA and/or kV according to patient size. COMPARISON: [facility], CT, CT CHEST ABD PEL W CON, 05/21/2022, 10:37. FINDINGS: Image quality: Diagnostic Lower chest: Bibasilar atelectasis or scarring. Possible small hiatal hernia. There are coronary calcifications. Solid organs not well evaluated in the absence of intravenous contrast. Liver: A granuloma is seen at the dome. Gallbladder and biliary system: Gallbladder is absent. No pathologic biliary dilation Pancreas: Unremarkable Spleen: Nonenlarged Adrenals: No discrete nodules Kidneys: No hydronephrosis. No obstructing calcified stone. Pelvic calcifications are seen, probably phleboliths. Vessels and lymph nodes: No abdominal aortic aneurysm. No pathologic lymphadenopathy by size criteria. Bowel and peritoneum: Abdominal diverticula. Moderate fecal loading and colonic diverticula. Most of the stool is in the mid and proximal colon. The appendix appears nondilated. No drainable abscess or pathologic ascites identified. Mildly distended proximal small bowel with fluid. Body wall: Unremarkable Pelvis: Bladder is unremarkable. Reproductive organs appear unremarkable on limited CT evaluation. Consider ultrasound if there is concern. There is trace nonspecific free fluid. Bones: Degenerative findings, no acute or suspicious osseous changes. IMPRESSION: No obstructing calcified stones. No hydronephrosis. Moderate fecal loading, particularly in the proximal and mid colon. The distal colon is under distended, with numerous diverticula. Consider correlation with age- appropriate colonoscopy results. Trace pelvic free fluid is seen, of uncertain etiology. Mildly distended proximal small bowel with fluid, possibly enteritis. Other findings above. Dictated by: Grant Abdullahi M.D. on 11/06/2023 at 17:02 Approved by: Grant Abdullahi M.D. on 11/06/2023 at 17:10 [facility] Narrative Medical decision making narrative: ED course: This is a 78-year-old female presents emergency department due to bilateral upper thigh pain with some radiation to her lateral buttocks. Patient reports 2 days ago having some mild UTI symptoms although UA showed no evidence of an acute UTI. Lab work was ordered due to patient's vague symptoms which showed a hyponatremia of 123 as well as hypokalemia of 3.0. Potassium was given as well as a L bolus normal saline. Patient was discussed with the hospitalist Dr. Blanca, who requested a urine sodium as well as imaging to rule out hydronephrosis. CT abdomen and pelvis ordered which was negative for hydronephrosis. He will kindly accepted the patient for admission and continued care. CC: Thigh pain Complicating co-morbidities: History of chronic kidney disease, cholecystectomy, choledocholithiasis Data collected from: Previous notes Medical records reviewed: Patient was seen here approximately a year and a half ago. History of asthma. History of chronic kidney disease. History of cholecystectomy. Patient was eventually found to have choledocholithiasis. Transfer to [facility] for ERCP. Differential considered, but not limited to: Musculoskeletal back pain, hyponatremia, hypokalemia Exam documented above, pertinent findings include: No significant abnormal findings Lab Test results independently reviewed as above. Pertinent findings: Hyponatremia 123 as well as hypokalemia of 3.0 Imaging studies independently reviewed: CT abdomen and pelvis showed no acute abnormalities Scores Used: None MIPS Elements: None Consultations: None Treatments: 1 L bolus of normal saline as well as potassium supplementation Re-evaluations: None Discussion: Discussed plan with the patient was comfortable with the plan Diagnosis: Acute hyponatremia Disposition: see below, along with detailed discharge instructions that have been reviewed with patient as well as indications for ED re-evaluation and additional outpatient follow up Discharge Plan Departure Patient Disposition: Admitted As Inpatient Clinical Impression: Acute hyponatremia Admit Date/Time: 11/06/23 17:26 Admit Provider: Chapo Blanca
[2023-11-06 14:06] VITALS: BP 140/62; PULSE 68; RESP 18; TEMP 36.6; O2SAT 99
[2023-11-06 14:46] LABS: Add Manual Diff / Slide Review NO; Basophils Absolute Auto 100 /uL (0-100); Basophils Percent Auto 1.2 % (0-2); Eosinophils Absolute Auto 1400 /uL (0-450); Eosinophils Percent Auto 15.3 % (2-4); Hematocrit 33.6 % (36-46); Hemoglobin 11.9 g/dL (12.0-16.0); Lymphocytes Absolute Auto 1800 /uL (1100-4500); Lymphocytes Percent Auto 20.3 % (25-40); Mean Corpuscular HGB Conc 35.5 % (30-36); Mean Corpuscular Hemoglobin 29.4 PG (26-34); Mean Corpuscular Volume 82.9 fL (80-100); Monocytes Absolute Auto 600 /uL (0-900); Monocytes Percent Auto 6.2 % (3-14); Neutrophils Absolute Auto 5200 /uL (1500-7000); Platelet Count 327 X10^3/uL (150-400); Red Blood Cell Count 4.06 X10^6/uL (4.0-5.2); Red Cell Distribution Width 12.8 % (11.6-14.8); White Blood Cell Count 9.1 X10^3/uL (4.5-11.0)
[2023-11-06 14:57] LABS: Alanine Aminotransferase 19 IU/L (<35); Albumin 3.8 g/dL (3.5-5.0); Albumin Globulin Ratio 1.1 (1.0-2.8); Alkaline Phosphatase 89 U/L (38-126); Aspartate Aminotransferase 28 IU/L (14-36); BUN Creatinine Ratio 25.6 (6-22); Bilirubin Total 0.9 mg/dL (0.2-1.3); Blood Urea Nitrogen 22 mg/dL (7-17); Calcium 9.6 mg/dL (8.4-10.2); Carbon Dioxide 27 mmol/L (22-32); Chloride 88 mmol/L (98-107); Estimated Glomerular Filt Rate > 60 mL/min (>60); Globulin 3.4 g/dL (1.7-4.1); Glucose 147 mg/dL (80-110); HEMOLYSIS 18 (0-50); Sodium 123 mmol/L (137-145); Total Protein 7.2 g/dL (6.3-8.2)
[2023-11-06 15:21] LABS: Appearance Urine UA CLEAR; Bilirubin Urine UA NEGATIVE (NEGATIVE); Color Urine UA YELLOW; Glucose Urine UA NEGATIVE (Negative); Ketones Urine UA NEGATIVE (NEGATIVE); Leukocyte Esterase Urine UA NEGATIVE (NEGATIVE); Nitrite Urine UA NEGATIVE (Negative); Occult Blood Urine UA NEGATIVE (Negative); Protein Urine UA NEGATIVE (Negative)
[2023-11-06 15:22] LABS: pH Urine UA 7.5 (4.5-8.0)
[2023-11-06 15:30] LABS: Bacteria Urine Occasional (0-1); Culture Indicated Urine Cult Not Indicated; RBC Urine None Seen (0-5/HPF); Squamous Epithelial Cell Urine 0-1 /HPF (0-5/HPF); Urine Volume 10mL (spun); WBC Urine None Seen (0-5/HPF)
[2023-11-06 15:33] VITALS: BP 132/61; PULSE 67; RESP 18; TEMP 36.8; O2SAT 100
[2023-11-06] MEDS: POTASSIUM CHLORIDE IN WATER 10 MEQ/100 ML PIGGYBACK 100 MEQ IV ×2 (15:38→16:50)
[2023-11-06] MEDS: SODIUM CHLORIDE 0.9% 1,000 ML 1000 ML IV (15:38)
[2023-11-06] MEDS: POTASSIUM CHLORIDE 20 MEQ/15 ML UDC 40 MEQ PO (15:40)
--- NOTE | 2023-11-06 16:44 | DI.CT.S_ITS ---
PROCEDURE: CT ABDOMEN PELVIS WO CON INDICATIONS: r/o hydronephrosis + pelvic pain TECHNIQUE: Axial sections were acquired from the lung bases to the pubic symphysis. Coronal and sagittal reformats were performed. For radiation dose reduction, the following was used: automated exposure control, adjustment of mA and/or kV according to patient size. COMPARISON: [facility], CT, CT CHEST ABD PEL W CON, 05/21/2022, 10:37. FINDINGS: Image quality: Diagnostic Lower chest: Bibasilar atelectasis or scarring. Possible small hiatal hernia. There are coronary calcifications. Solid organs not well evaluated in the absence of intravenous contrast. Liver: A granuloma is seen at the dome. Gallbladder and biliary system: Gallbladder is absent. No pathologic biliary dilation Pancreas: Unremarkable Spleen: Nonenlarged Adrenals: No discrete nodules Kidneys: No hydronephrosis. No obstructing calcified stone. Pelvic calcifications are seen, probably phleboliths. Vessels and lymph nodes: No abdominal aortic aneurysm. No pathologic lymphadenopathy by size criteria. Bowel and peritoneum: Abdominal diverticula. Moderate fecal loading and colonic diverticula. Most of the stool is in the mid and proximal colon. The appendix appears nondilated. No drainable abscess or pathologic ascites identified. Mildly distended proximal small bowel with fluid. Body wall: Unremarkable Pelvis: Bladder is unremarkable. Reproductive organs appear unremarkable on limited CT evaluation. Consider ultrasound if there is concern. There is trace nonspecific free fluid. Bones: Degenerative findings, no acute or suspicious osseous changes. IMPRESSION: No obstructing calcified stones. No hydronephrosis. Moderate fecal loading, particularly in the proximal and mid colon. The distal colon is under distended, with numerous diverticula. Consider correlation with age-appropriate colonoscopy results. Trace pelvic free fluid is seen, of uncertain etiology. Mildly distended proximal small bowel with fluid, possibly enteritis. Other findings above. Dictated by: Grant Abdullahi M.D. on 11/06/2023 at 17:02 Approved by: Grant Abdullahi M.D. on 11/06/2023 at 17:10
[2023-11-06 16:46] LABS: Sodium Urine Random 87 mmol/L (30-90)
--- NOTE | 2023-11-06 16:51 | PC.NURSE ---
Patient left department with x ray technologist in wheelchair.
--- NOTE | 2023-11-06 17:01 | PM.CALLCOV.1 ---
Call Coverage Note Note Date of Patient Contact: 11/06/23 Time of Patient Contact: 17:01 Narrative of Care Provided: Full consult or H&P to follow. 78 F medicine called to evaluate for admission for hyponatremia. Patient's primary concern is her intermittent positional back and leg pains. Unclear if related to hyponatremia. Hyponatremia is likely related to decreased oral intake with recent viral illness and chlorthalidone. Patient has had declining sodium on outpatient labs with sodium in 06/2023 of 128. Need to rule out an atypical stone with CT abdomen to see if possible nephrolithiasis contributing to presentation given non-descript back pain and lack of urology production scheduler at this time. If CT negative for nephrolithiasis w/ hydronephrosis okay for admission as inpatient given Na of 123.
[2023-11-06 17:08] VITALS: BP 126/71; PULSE 70; RESP 20; TEMP 37.1; O2SAT 97
--- NOTE | 2023-11-06 17:22 | P.HP_ITS ---
History of Present Illness History of Present Illness Date Patient Seen: 11/06/23 Time Patient Seen: 16:50 Chief complaint: pain in pelvis and legs Narrative: This is a 78 year old female with PMH of asthma and HTN who presented with intermittent back and leg pain over the last 3 days or so. Patient describes the pain as sharp, but cannot localize the pain to one specific point. Pain has been in her back on both sides, bilateral legs, and arms. Nothing seems to provoke or palliate the symptoms. Pain seems to be worse at night, she slept in a chair the other evening because she has been having positional pain. She denies recent fever, but appetite has been much diminished since a recent viral illness about a week ago. She had diarrhea at that time, but largely those symptoms have resolved. She denies any chest pain, shortness of breath, abdominal pain, dysuria or urinary frequency. She takes metoprolol along with atenolol- chlorthalidone combination antihypertensive. relates that the patient has not been herself the past few days, with fatigue, slowness, and generalized malaise. In the emergency room, patient's vitals were unremarkable. Labs showed a sodium of 123, K of 3.0. UA was negative. CT abdomen was requested and showed enteritis with some stool burden. Urine sodium was 87 (though patient on chlorthalidone). She was ordered for potassium repletion and 1L NS infusion. After initial evaluation, patient was admitted for further management of hyponatremia. [facility] Medical History Essential hypertension Bilateral leg edema Asthma Nasal congestion CKD (chronic kidney disease) Family History Father Hyperlipidemia Social History Smoking Status: Former smoker Tobacco: How many years used: 30 second hand exposure: Yes (my smokes a pipe once a day.) alcohol intake: former (social drinker in the past.) substance use type: marijuana (1 puff once every 6 weeks.) Meds Home Medications and Allergies Home Medications Medication Instructions Recorded Confirmed Type cholecalciferol (vitamin D3) 25 1,000 unit PO DAILY 03/22/18 10/30/23 History mcg (1,000 unit) capsule fluticasone propionate 50 1 spray intranasal BID PRN nasal 01/19/22 10/30/23 Rx mcg/actuation nasal congestion #16 grams spray,suspension multivitamin 1 tab PO DAILY 04/03/22 10/30/23 History potassium chloride PO 04/03/22 10/30/23 History ascorbic acid (vitamin C) 1 g PO Q6H PRN constipation #113 05/30/22 10/30/23 Rx grams docusate sodium 100 mg capsule 100 mg PO DAILY PRN constipation 05/30/22 10/30/23 Rx (DulcoEase) #30 caps magnesium oxide 500 mg capsule 500 mg PO BID PRN constipation #90 05/30/22 10/30/23 Rx caps albuterol sulfate 90 mcg/actuation 2 puff inhalation Q4-6H PRN 01/28/23 10/30/23 Rx aerosol inhaler shortness of breath #36 grams montelukast 10 mg tablet 10 mg PO DAILY #90 tabs 09/03/23 10/30/23 Rx (Singulair) budesonide-formoterol HFA 80 1 inh inhalation BID #10.2 grams 09/21/23 10/30/23 Rx mcg-4.5 mcg/actuation aerosol inhaler (Symbicort) carvedilol 3.125 mg tablet 3.125 mg PO BID #180 tabs 09/21/23 10/30/23 Rx atenolol 100 mg-chlorthalidone 25 1 tab PO QDAY #90 tabs 10/09/23 10/30/23 Rx mg tablet levothyroxine 25 mcg tablet 25 mcg PO DAILY #90 tabs 10/09/23 10/30/23 Rx Allergies Allergy/AdvReac Type Severity Reaction Status Date / Time Penicillins [PENICILLINS] Allergy Severe ANAPHYLACTIC Verified 10/30/23 12:21 SHOCK latex [LATEX] Allergy Intermediate RASH Verified 10/30/23 12:21 codeine [CODEINE] AdvReac Severe FALSE Verified 10/30/23 12:21 HEART ATTACK SYMPTOMS hydrocodone AdvReac Severe made me Verified 10/30/23 12:21 violently ill and did nothing for the pain Review of Systems Review of Systems Narrative: All other systems reviewed with the patient and are negative unless otherwise stated. Exam Vital Signs (past 8 hours): - 11/06/23 13:00 11/06/23 14:06 11/06/23 15:33 Temperature 97.5 F L 97.8 F 98.3 F Pulse Rate 70 68 67 Respiratory Rate 18 18 18 Blood Pressure 113/57 L 140/62 132/61 Pulse Oximetry 99 99 100 Oxygen Delivery Method Room Air Room Air Room Air 11/06/23 17:08 Temperature 98.7 F Pulse Rate 70 Respiratory Rate 20 Blood Pressure 126/71 Pulse Oximetry 97 Oxygen Delivery Method Room Air Oxygen Delivery Method Room Air Narrative Exam Narrative: General:? Patient is well developed and well nourished, in no distress at this time. HEENT:? Normocephalic, atraumatic, extraocular muscles intact, oral pharynx is clear and mucous membranes are moist. Neck: supple and symmetric, trachea is midline, no cervical adenopathy. Negative for JVD Chest:? Normal AP diameter and contour without kyphoscoliosis, no tachypnea, equal chest rise bilaterally. Lungs:? CTA b/l no wheezing rhonchi or rales. Cardio:?RRR no m/r/g. Abdomen: S NT ND. No CVA tenderness. Musculoskeletal:? Muscle strength and tone are equal within normal limits, no deformity. No midline tenderness or paraspinal tenderness today. Extremities: No edema or joint effusions. No cyanosis or clubbing. Skin:? Pale,? Warm to touch,dry and intact without rashes, ulcerations or petechiae.? Neuro:? Alert and orientated x3,? sensation to touch intact in all extremities, no gross deficits noted of cranial nerves. Psych:? Patient has a well-kept appearance, appropriate affect, mental status attitude thought context and judgment are appropriate for age. Objective Labs 11/06/23 14:17 11/06/23 14:17 Labs: Laboratory Results - last 24 hr 11/06/23 11/06/23 14:17 15:05 WBC 9.1 RBC 4.06 Hgb 11.9 L Hct 33.6 L MCV 82.9 MCH 29.4 MCHC 35.5 RDW 12.8 Plt Count 327 Neut % (Auto) 57.0 Lymph % (Auto) 20.3 L [place] % (Auto) 6.2 Eos % (Auto) 15.3 H Baso % (Auto) 1.2 Neut # (Auto) 5200 Lymph # (Auto) 1800 [place] # (Auto) 600 Eos # (Auto) 1400 H Baso # (Auto) 100 Sodium 123 L Potassium 3.0 L Chloride 88 L Carbon Dioxide 27 BUN 22 H Creatinine 0.86 Estimated GFR > 60 BUN/Creatinine Ratio 25.6 H Glucose 147 H Calcium 9.6 Total Bilirubin 0.9 AST 28 ALT 19 Alkaline Phosphatase 89 Total Protein 7.2 Albumin 3.8 Globulin 3.4 Albumin/Globulin Ratio 1.1 Urine Color Yellow Urine Appearance Clear Urine pH 7.5 Ur Specific [place] 1.010 Urine Protein Negative Urine Glucose (UA) Negative Urine Ketones Negative Urine Occult Blood Negative Urine Nitrate Negative Urine Bilirubin Negative Urine Urobilinogen 2.0 H Ur Leukocyte Esterase Negative Urine RBC None seen Urine WBC None seen Ur Squamous Epith Cells 0-1 /hpf Urine Bacteria Occasional (0-1) Ur Culture Indicated? Cult not indicated Vol Urine Centrifuged 10ml (spun) Ur Random Sodium 87 Assessment & Plan Assessment & Plan narrative: 1. Hyponatremia, acute on chronic, present on admission - likely hypovolemia with recent viral illness / GI losses and chlorthalidone. Previous labs have also shown a sodium of 128. Today sodium is 123. Will repeat in a few hours to continue trending after IV fluids given. - Urine sodium 78, though patient on diuretic therapy. - UA negative for infection, CT done given non-descript pain to rule out obstructing stone which was negative. - unclear if pain is related to hyponatremia or not, continue symptom treatment with pain medications, will trial musculoskeletal relief as well with lidocaine patch, tylenol, consider mild muscle relaxant as well. Her fatigue and lethargy is likely related to her hyponatremia. - PT/OT ordered 2. Hypokalemia, acute, present on admission. - received 60 mEq in the ER, will repeat labs as noted above. - will check Mg level with next labs. 3. HTN - will fully stop home atenolol - chlorthalidone as patient is already on carvedilol it seems and with worsening hyponatremia on outpatient labs chlorthalidone is not preferred as well. - continue carvedilol, may need to increase if hypertensive. Patient on 3.125 mg BID. 4. Asthma without exacerbation - will replace patient's home dulera with formulary nebulizers. albuterol prn. Code:Full, surrogate is patient's spouse DVT: Lovenox I have utilized all available immediate resources to obtain, update, or review the patient's current medications. Dispo: Patient admitted under inpatient status given possibly symptomatic hyponatremia with Na of 123 on presentation and stay is expected to last longer than two midnights. Discussed with care provider in the emergency room to contribute to the above history, assessment and plan. Additional history obtained from patient's spouse.
[2023-11-06 18:25] VITALS: BMI 25.8
[2023-11-06 18:47] VITALS: BMI 25.8
[2023-11-06] MEDS: TRAMADOL 50 MG TABLET PO (20:39)
[2023-11-06] MEDS: SODIUM CHLORIDE 0.9% FLUSH 10 ML IV ×2 (20:40→23:12)
[2023-11-06 20:41] LABS: BUN Creatinine Ratio 26.9 (6-22); Blood Urea Nitrogen 21 mg/dL (7-17); Calcium 9.3 mg/dL (8.4-10.2); Carbon Dioxide 24 mmol/L (22-32); Chloride 93 mmol/L (98-107); Estimated Glomerular Filt Rate > 60 mL/min (>60); Glucose 116 mg/dL (80-110); HEMOLYSIS < 15 (0-50); Magnesium 1.4 mg/dL (1.6-2.3); Potassium 3.5 mmol/L (3.4-5.1); Sodium 122 mmol/L (137-145)
[2023-11-06 21:02] VITALS: BP 142/60; PULSE 69; RESP 17; TEMP 35.9; O2SAT 99
[2023-11-06] MEDS: BUDESONIDE 0.5 MG/2 ML NEB INH (21:04)
[2023-11-06] MEDS: MAGNESIUM SULFATE 4 GM/100 ML PIGGYBACK IV (23:12)
[2023-11-06] MEDS: CALCIUM CARBONATE 500 MG TAB PO (23:12)
[2023-11-07] VITALS (11 sets, daily range): BP systolic 123–148; BP diastolic 56–71; PULSE 63–74; RESP 14–18; TEMP 35.9–36.8; O2SAT 96–100
--- NOTE | 2023-11-07 00:38 | PC.NURSE ---
Addendum entered by Felicia White R.N. 11/07/23 07:21: Dr Bettencourt was informed of critical Na of 119 this morning and he ordered 1 gm salt tab x1. Had small emesis 10-15 min after taking salt tab. Addendum entered by Felicia White R.N. 11/07/23 06:27: Has been up multiple times to urinate and only voids 50-100cc most times. Urine more cloudy this morning but patient denies dysuria. Original Note: Patient is alert and oriented but very anxious. Complaining of 8/10 intense ache that travels 1 side to the other, starts in legs and moves up and currently stating it is bilateral hips and low back. States this is the original reason she came to the ER and she has not had anything for it. Night hospitalist was texted and contacted via phone and informed of pain and ordered Tramadol as has allergies to codeine and hydrocodone and patient stating that Tylenol, ASA and Aleve have not helped her at home so wanting something stronger; medicated once med was verified by pharmacy. Continues to state pain is 6/[address] Bettencourt was again contacted but declined to order anything additional. 1999 lab came back with Na of 122 and Mg of 1.[address] Bettencourt was informed of labs and did order Mg rider after being told nursing was not comfortable with magnesium that low. Patient is oriented. Breath sounds CTA with RA sat of 99%. HRR. Denied nausea but later complaining of stomach upset so order received for Tums and 1 tab was administered. BT present and abdomen is soft. Voiding small amounts and then up x 3 without urinating so bladder scan was done and indicated 380cc in bladder after which patient did get up again and voided another 100cc with post void scan showing 255cc; denied any dysuria and UA done in ER was negative for UTI. Is able to turn herself in bed. Up to bathroom with cane and 1 assist and patient is very weak. Fall risk score is high and bed alarm is activated.
[2023-11-07 05:45] LABS: Add Manual Diff / Slide Review NO; Basophils Absolute Auto 100 /uL (0-100); Basophils Percent Auto 0.6 % (0-2); Eosinophils Absolute Auto 1000 /uL (0-450); Eosinophils Percent Auto 10.6 % (2-4); Lymphocytes Absolute Auto 1900 /uL (1100-4500); Lymphocytes Percent Auto 20.1 % (25-40); Mean Corpuscular HGB Conc 35.3 % (30-36); Mean Corpuscular Hemoglobin 29.5 PG (26-34); Mean Corpuscular Volume 83.4 fL (80-100); Monocytes Absolute Auto 800 /uL (0-900); Monocytes Percent Auto 8.3 % (3-14); Neutrophils Absolute Auto 5600 /uL (1500-7000); Neutrophils Percent Auto 60.4 % (50-75); Platelet Count 283 X10^3/uL (150-400); Red Blood Cell Count 3.72 X10^6/uL (4.0-5.2); Red Cell Distribution Width 12.9 % (11.6-14.8); White Blood Cell Count 9.2 X10^3/uL (4.5-11.0)
[2023-11-07 06:01] LABS: Alanine Aminotransferase 17 IU/L (<35); Albumin 3.2 g/dL (3.5-5.0); Albumin Globulin Ratio 1.1 (1.0-2.8); Alkaline Phosphatase 82 U/L (38-126); Aspartate Aminotransferase 25 IU/L (14-36); BUN Creatinine Ratio 23.9 (6-22); Bilirubin Total 0.8 mg/dL (0.2-1.3); Blood Urea Nitrogen 16 mg/dL (7-17); Calcium 9.1 mg/dL (8.4-10.2); Carbon Dioxide 24 mmol/L (22-32); Chloride 90 mmol/L (98-107); Estimated Glomerular Filt Rate > 60 mL/min (>60); Glucose 109 mg/dL (80-110); HEMOLYSIS < 15 (0-50); Magnesium 2.2 mg/dL (1.6-2.3); Total Protein 6.2 g/dL (6.3-8.2)
[2023-11-07 06:16] LABS: Potassium 3.4 mmol/L (3.4-5.1)
[2023-11-07 06:17] LABS: Sodium 119 mmol/L (137-145)
[2023-11-07 06:35] LABS: TSH w/ Reflex to FT4 2.47 uIU/mL (0.47-4.68)
[2023-11-07] MEDS: SODIUM CHLORIDE 1,000 MG TABLET 1000 MG PO ×3 (06:40→14:07)
[2023-11-07] MEDS: BUDESONIDE 0.5 MG/2 ML NEB INH ×2 (09:07→21:11)
[2023-11-07] MEDS: DOCUSATE 100 MG CAPSULE PO ×2 (09:09→20:48)
[2023-11-07] MEDS: carvediloL 3.125 MG TABLET PO ×2 (09:10→20:47)
[2023-11-07] MEDS: SODIUM CHLORIDE 0.9% FLUSH 10 ML IV ×2 (09:11→20:48)
[2023-11-07] MEDS: POTASSIUM CHLORIDE 20 MEQ TAB 40 MEQ PO (09:11)
--- NOTE | 2023-11-07 09:40 | PT.IIE ---
Current Diagnoses Hypo-osmolality and hyponatremia (11/06/23) Medical History (Last Reviewed 11/06/23 @ 17:29 by Chapo Blanca DO) Asthma Bilateral leg edema CKD (chronic kidney disease) Essential hypertension Nasal congestion Physical Therapy Inpatient Evaluation/Re-Eval M1 PT/OT-IP Prior Functional Status Start: 11/07/23 12:27 Freq: NEEDED Status: Active Protocol: Document 11/07/23 09:40 AB (Rec: 11/07/23 12:41 AB [id number]) Medical Review Prior Functional Status Medical History Reviewed Yes Communication able to make needs known Mobility and Gait pt stated that she was modified independent with all mobilities and ambulation without AD but uses a SPC on/ off depending on how she feels but has been using it more frequently for the last week due to weakness Social History Household Members spouse Living Arrangements House Number of Floors (Floors) One Floor Number of Stairs To Enter/Railing? 3 steps L rail ascending to enter the house Home Environment Standard Height Toilet,Built- In Shower Seat Home Equipment Straight Cane M2 PT-IP Current Condition Start: 11/07/23 12:27 Freq: NEEDED Status: Active Protocol: Document 11/07/23 09:40 AB (Rec: 11/07/23 12:41 AB [id number]) Physical Therapy Current Condition Current Condition Evaluation Date 11/07/23 Treatment Diagnosis acute hyponatremia; difficulty in walking Onset Date 11/06/23 M3 PT-IP Subjective Start: 11/07/23 12:27 Freq: NEEDED Status: Active Protocol: Document 11/07/23 09:40 AB (Rec: 11/07/23 12:41 AB [id number]) Subjective Physical Therapy Visit Type Type Initial Evaluation Visit Start Time 09:40 Visit Stop Time 10:10 Notes pt with Na level of 119. spoke with hospitalist and pt cleared to do PT. Number of YOUTH CAREER SPECIALIST Visits 0 Physical Therapy Visit Comments Patient Comments agreeable to do PT M4 PT-IP Mobility and Gait Start: 11/07/23 12:27 Freq: NEEDED Status: Active Protocol: Document 11/07/23 09:40 AB (Rec: 11/07/23 12:41 AB [id number]) PT-Bed Mobility Assessment Supine to Sit Supine to Sit Standby Assistance PT-Transfer Assessment Sit to and From Stand Sit to and from Stand Standby Assistance,Contact Guard Assistance,1 Person Assistance,Use of Upper Extremities Equipment Transfer Assistive Device Gait Belt,Straight Cane Orthotic/Prosthetic Devices or Brace: No Transfers Transfer Destination Toilet Transfer Technique ambulated Transfer Ability Level of Assist Standby Assistance,Contact Guard Assistance,1 Person Assistance,Use of Upper Extremities Comments Mobility Comments pt supine in bed and agreeable to do PT. obtained PLOF and home set up from pt. pt stated that she really need to use the toilet. completed supine to sit SBA. able to sit on EOB SBA. no c/o dizziness. completed sit to stand CGA and ambulated to the toilet using SPC SBA to cGA. presents with unsteady gait but without LOB. able to use the toilet SBA. completed sit to stand from the toilet using grab bar SBA. pt ambulated towards the sink using SPC SBA to CGA. CGA during turns due to unsteadiness. pt was able to maintain standing sBA while completing handwashing. pt ambulated to the chair using SPC SBA to cGA ~ 10 ft. pt refused further ambulation or stair climbing. stated not today and c/o fatigue. pt sat on the chair and positioned on the chair. call light and table placed within reach. Gait Assessment Gait Gait Assistance Required: Standby Assistance,Contact Guard Assist Distance (Feet) 15 Able to Maintain Weight Bearing Status Yes During Gait Assistive Devices Assistive Device Gait Belt,Straight Cane Orthotic/Prosthetic Devices or Brace: No Gait Deviations General Gait Pattern Decreased Stride Length, Decreased Feet Clearance Factors Limiting Gait Function Factors Limiting Gait Function Decreased Activity Tolerance, Decreased Strength,Poor Balance,Poor Safety Awareness PT-Balance Assessment Sitting Balance and Reactions Static Sitting Balance Ability Good Dynamic Sitting Balance Ability Good Standing Balance and Reactions Static Standing Balance Ability Fair Dynamic Standing Balance Ability Fair Device Used SPC M5 PT-IP Objective Assessments Start: 11/07/23 12:27 Freq: NEEDED Status: Active Protocol: Document 11/07/23 09:40 AB (Rec: 11/07/23 12:41 AB [id number]) Orientation Orientation/Cognition Level of Alertness Alert Orientation Name,Place,Situation Language Function Ability No Deficits Noted Safety Awareness Decreased Safety Awareness Memory Description No Deficits Noted Gross Range of Motion Lower Extremity ROM Assessment Within Functional Limits Strength Lower Extremity Strength Assessment Within Functional Limits Muscle Tone Muscle Tone WNL Yes M6 PT-IP Treatment Start: 11/07/23 12:27 Freq: NEEDED Status: Active Protocol: Document 11/07/23 09:40 AB (Rec: 11/07/23 12:41 AB [id number]) Physical Therapy Treatment Education Education Provided Safety M7 PT-IP Assessment and Plan Start: 11/07/23 12:27 Freq: NEEDED Status: Active Protocol: Document 11/07/23 09:40 AB (Rec: 11/07/23 12:41 AB [id number]) PT Summary Assessment and Plan Potential Rehabilitation Potential Fair Status of Condition at Evaluation Evolving Summary Impairments Pain,ROM,Strength,Balance, Coordination,Sensation,Tone, Cognition,Bed Mobility, Transfers,Gait,Activity Tolerance Assessment Summary pt is a 78 y/o F who presented to the ED due to c/o pelvic and upper thigh pain. pt found to have acute hyponatremia. pt requiring SBA to CGA with ambulation using SPC but presents with decrease activity tolerance affecting mobility independence. pt lives with her spouse and stated that her spouse will be able to assist her if needed. pt will benefit from HHPT at this time . will continue to assess progress. Goals Bed Mobility Goal Independent Transfer Goal Independent,Cane Gait Goal Independent,Cane Gait Distance 300 Other Goals improve transfers and ambulation using LRAD/without AD > 300 ft mod I up/down 3 steps L rail ascending mod I Days to Meet Goals 10 Frequency of Treatment Frequency Of Treatment Once a Day Treatment Plan Physical Therapy Treatment Plan Bed Mobility Training,Transfer Training,Gait Training, Therapeutic Exercise,Balance Retraining,Discharge Planning, Hot or Cold Pack,Neuromuscular Re-ed,Coordination Retraining Recommendations To Nursing Amount of Assist Needed 1 Person Assist Discharge Recommendations PT Discharge Recommendations Home with Assistance,Home Health Transportation Needs at Discharge Private Vehicle
--- NOTE | 2023-11-07 10:38 | CM.DANOTE ---
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 Patient will remain admitted this evening for sodium replacement Met w/patient to introduce self and role; patient lives w/spouse and reports being indp in all aspects. Patient says she doesn't feel sick enough to stay in the hospital however understands Dr Blanca would like to replenish sodium in a monitored, medical environment. Patient denies needs from this CM team. No barriers identified at this time to patient's safe discharge home w/family to assist; close outpatient f/u recommended. CM team will plan to follow closely in case any DC needs or concerns arise. YENNIFER Younger Discharge Planning/Care Management CM Discharge Assessment Start: 11/07/23 10:23 Freq: Status: Active Protocol: Document 11/07/23 10:23 LANDY (Rec: 11/07/23 10:37 [id number]) Discharge Planning Assessment Assigned Optical Laboratory Mechanic YENNIFER Bradford DPOA/Assigned Designee Name Chapo Day Gauger, spouse Contact Information [phone] Advance Directives? No History Provided By Patient,Medical Record Prior Living Arrangements House Household Members spouse Type of transporation used prior to Drives own vehicle admit Independent with ADL's Yes Is patient alert and oriented? Yes Barriers to Discharge No Comment Home w/spouse Discharge Plan Home Transportation Arrangement Spouse Referrals Initiated None needed
[2023-11-07] MEDS: methocarbamoL 500 MG TABLET PO ×2 (11:13→20:46)
[2023-11-07] MEDS: SENNOSIDES 8.6 MG TABLET PO ×2 (11:13→20:46)
[2023-11-07] MEDS: LIDOCAINE 5% PATCH 1 EACH TOP (11:13)
--- NOTE | 2023-11-07 13:02 | PM.PN.1 ---
Subjective Subjective Interval history: 78 F admitted for hyponatremia. She continues to have intermittent pain. Was able to sleep some last night. Na fell overnight to 119 with fluids. Stopped, started on salt tablets. Patient does complain of urinary frequency and dysuria this morning. UA negative yesterday but will repeat with UA and need to repeat urine sodium as well. Exam Vital Signs (past 8 hours): - 11/07/23 08:00 11/07/23 08:38 11/07/23 08:38 Temperature 97.6 F 97.6 F Pulse Rate 67 Respiratory Rate 18 Blood Pressure 146/56 H Pulse Oximetry 100 99 Oxygen Delivery Method Room Air 11/07/23 09:07 11/07/23 09:10 11/07/23 11:58 Temperature Pulse Rate 70 64 Respiratory Rate 18 Blood Pressure 131/65 Pulse Oximetry 99 99 Oxygen Delivery Method Room Air Room Air 11/07/23 12:00 Temperature 97.7 F Pulse Rate 63 Respiratory Rate 16 Blood Pressure 126/61 Pulse Oximetry 99 Oxygen Delivery Method Oxygen Delivery Method Room Air Oxygen Flow Rate 0 Narrative Exam Narrative: General:? Patient is well developed and well nourished, in no distress at this time. HEENT:? Normocephalic, atraumatic, extraocular muscles intact, oral pharynx is clear and mucous membranes are moist. Neck: supple and symmetric, trachea is midline, no cervical adenopathy. Negative for JVD Chest:? Normal AP diameter and contour without kyphoscoliosis, no tachypnea, equal chest rise bilaterally. Lungs:? CTA b/l no wheezing rhonchi or rales. Cardio:?RRR no m/r/g. Abdomen: S NT ND. No CVA tenderness. Musculoskeletal:? Muscle strength and tone are equal within normal limits, no deformity. No midline tenderness or paraspinal tenderness today. Extremities: No edema or joint effusions. No cyanosis or clubbing. Skin:? Pale,? Warm to touch,dry and intact without rashes, ulcerations or petechiae.? Neuro:? Alert and orientated x3,? sensation to touch intact in all extremities, no gross deficits noted of cranial nerves. Psych:? Patient has a well-kept appearance, appropriate affect, mental status attitude thought context and judgment are appropriate for age. Objective Labs 11/07/23 04:55 03/02/24 04:55 Labs: Laboratory Results - last 24 hr 11/06/23 11/06/23 11/06/23 14:17 15:05 20:23 WBC 9.1 RBC 4.06 Hgb 11.9 L Hct 33.6 L MCV 82.9 MCH 29.4 MCHC 35.5 RDW 12.8 Plt Count 327 Neut % (Auto) 57.0 Lymph % (Auto) 20.[address] [place] % (Auto) 6.2 Eos % (Auto) 15.3 H Baso % (Auto) 1.2 Neut # (Auto) 5200 Lymph # (Auto) 1800 [place] # (Auto) 600 Eos # (Auto) 1400 H Baso # (Auto) 100 Sodium 123 L 122 L Potassium 3.0 L 3.5 Chloride 88 L 93 L Carbon Dioxide 27 24 BUN 22 H 21 H Creatinine 0.86 0.78 Estimated GFR > 60 > 60 BUN/Creatinine Ratio 25.6 H 26.9 H Glucose 147 H 116 H Calcium 9.6 9.3 Magnesium 1.4 L Total Bilirubin 0.9 AST 28 ALT 19 Alkaline Phosphatase 89 Total Protein 7.2 Albumin 3.8 Globulin 3.4 Albumin/Globulin Ratio 1.1 TSH Urine Color Yellow Urine Appearance Clear Urine pH 7.5 Ur Specific [place] 1.010 Urine Protein Negative Urine Glucose (UA) Negative Urine Ketones Negative Urine Occult Blood Negative Urine Nitrate Negative Urine Bilirubin Negative Urine Urobilinogen 2.0 H Ur Leukocyte Esterase Negative Urine RBC None seen Urine WBC None seen Ur Squamous Epith Cells 0-1 /hpf Urine Bacteria Occasional (0-1) Ur Culture Indicated? Cult not indicated Vol Urine Centrifuged 10ml (spun) Ur Random Sodium 87 11/07/23 04:55 WBC 9.2 RBC 3.72 L Hgb 11.0 L Hct 31.0 L MCV 83.4 MCH 29.5 MCHC 35.3 RDW 12.9 Plt Count 283 Neut % (Auto) 60.4 Lymph % (Auto) 20.[address] % (Auto) 8.3 Eos % (Auto) 10.6 H Baso % (Auto) 0.6 Neut # (Auto) 5600 Lymph # (Auto) 1900 [place] # (Auto) 800 Eos # (Auto) 1000 H Baso # (Auto) 100 Sodium 119 L* Potassium 3.4 Chloride 90 L Carbon Dioxide 24 BUN 16 Creatinine 0.67 Estimated GFR > 60 BUN/Creatinine Ratio 23.9 H Glucose 109 Calcium 9.1 Magnesium 2.2 Total Bilirubin 0.8 AST 25 ALT 17 Alkaline Phosphatase 82 Total Protein 6.2 L Albumin 3.2 L Globulin 3.0 Albumin/Globulin Ratio 1.1 TSH 2.47 Urine Color Urine Appearance Urine pH Ur Specific [place] Urine Protein Urine Glucose (UA) Urine Ketones Urine Occult Blood Urine Nitrate Urine Bilirubin Urine Urobilinogen Ur Leukocyte Esterase Urine RBC Urine WBC Ur Squamous Epith Cells Urine Bacteria Ur Culture Indicated? Vol Urine Centrifuged Ur Random Sodium PFS Medical History Essential hypertension Bilateral leg edema Asthma Nasal congestion CKD (chronic kidney disease) Family History Father Hyperlipidemia Social History household members: spouse Smoking Status: Former smoker Tobacco: How many years used: 30 second hand exposure: Yes (my smokes a pipe once a day.) alcohol intake: former substance use type: marijuana (1 puff once every 6 weeks.) Assessment & Plan Assessment & Plan narrative: 1. Hyponatremia, acute on chronic, present on admission - thought hypovolemia initiatially but Na worsened from 123 to 119 with fluids. Fluids stopped and placed on salt tabs with fluid restriction. May have SIADH. - Urine sodium 78, though patient on diuretic therapy. Will repeat today. - UA negative for infection, CT done given non-descript pain to rule out obstructing stone which was negative. Will repeat again today with dysuria. - unclear if pain is related to hyponatremia or not, continue symptom treatment with pain medications, will trial musculoskeletal relief as well with lidocaine patch, tylenol, and added robaxin today. Her fatigue and lethargy is likely related to her hyponatremia. - PT/OT ordered 2. Hypokalemia, acute, present on admission. - received 60 mEq in the ER, improved to 3.4. - Mg okay at 2.2. 3. HTN - will fully stop home atenolol - chlorthalidone combo pill as patient is already on carvedilol it seems and with worsening hyponatremia on outpatient labs chlorthalidone is not preferred as well. - continue carvedilol, may need to increase if hypertensive. Patient on 3.125 mg BID. 4. Asthma without exacerbation - will replace patient's home dulera with formulary nebulizers. albuterol prn. Code:Full, surrogate is patient's spouse DVT: Lovenox I have utilized all available immediate resources to obtain, update, or review the patient's current medications. Dispo: Patient admitted under inpatient status given possibly symptomatic hyponatremia with Na of 123 on presentation and stay is expected to last longer than two midnights. Quality VTE Deep Vein Thrombosis/Pulmonary Embolism Present on Admission: No
[2023-11-07 13:13] LABS: Appearance Urine UA CLEAR; Bilirubin Urine UA NEGATIVE (NEGATIVE); Color Urine UA YELLOW; Glucose Urine UA NEGATIVE (Negative); Ketones Urine UA NEGATIVE (NEGATIVE); Leukocyte Esterase Urine UA NEGATIVE (NEGATIVE); Nitrite Urine UA NEGATIVE (Negative); Occult Blood Urine UA NEGATIVE (Negative); Protein Urine UA NEGATIVE (Negative); Specific Gravity Urine UA 1.015 (1.000-1.035)
[2023-11-07 13:24] LABS: Bacteria Urine Occasional (0-1); RBC Urine None Seen (0-5/HPF); Squamous Epithelial Cell Urine None Seen (0-5/HPF); Urine Volume 10mL (spun); WBC Urine None Seen (0-5/HPF)
[2023-11-07 13:25] LABS: Amorphous Sediment Urine 2+; Culture Indicated Urine Cult Not Indicated; Mucus Urine 1+ (Negative)
[2023-11-07 13:58] LABS: BUN Creatinine Ratio 20.5 (6-22); Blood Urea Nitrogen 16 mg/dL (7-17); Calcium 9.5 mg/dL (8.4-10.2); Carbon Dioxide 28 mmol/L (22-32); Chloride 88 mmol/L (98-107); Estimated Glomerular Filt Rate > 60 mL/min (>60); Glucose 143 mg/dL (80-110); HEMOLYSIS < 15 (0-50); Sodium 121 mmol/L (137-145)
[2023-11-07 14:28] LABS: Sodium Urine Random 138 mmol/L (30-90)
[2023-11-07 17:21] LABS: Blood Urea Nitrogen 17 mg/dL (7-17); Calcium 9.5 mg/dL (8.4-10.2); Carbon Dioxide 24 mmol/L (22-32); Chloride 89 mmol/L (98-107); Estimated Glomerular Filt Rate > 60 mL/min (>60); Glucose 104 mg/dL (80-110); HEMOLYSIS < 15 (0-50); Potassium 4.1 mmol/L (3.4-5.1); Sodium 121 mmol/L (137-145)
[2023-11-07] MEDS: SODIUM CHLORIDE 1,000 MG TABLET 2000 MG PO (20:47)
[2023-11-07] MEDS: ONDANSETRON 4 MG ODT PO (22:40)
[2023-11-07] MEDS: TRAMADOL 50 MG TABLET PO (22:40)
[2023-11-08] VITALS (8 sets, daily range): BP systolic 101–145; BP diastolic 55–72; PULSE 64–79; RESP 16–19; TEMP 36.1–36.4; O2SAT 97–100
--- NOTE | 2023-11-08 01:17 | PC.NURSE ---
Addendum entered by Felicia White R.N. 11/08/23 06:28: Dr. Bettencourt notified of low magnesium of 1.5 and new order received for magnesium replacement. Original Note: Patient is alert and oriented but anxious and states she is homesick and just wants to go home so needing lots of explanations and reassurances as to plan of care. Breath sounds CTA with RA sat of 98%. HRR but BP initially still elevated at 143/71. She denied nausea but approximately 20 minutes following administration of sodium chloride tablets she had an unmeasured emesis and believes it is from the salt tablets as states that is what happened after taking them on previous shift. Dr. Bettencourt was informed by coordinator, [place] and order received to try administering Reglan 30 minutes prior to giving salt tablets. BT present and is passing flatus. Denied any dysuria with urination but is still voiding in small amounts although not as frequently tonight. Did state pain was improved but still requested Robaxin and later was given Tramadol for a headache and is currently asleep. Is able to turn herself but still requiring cane and 1 assist when out of bed related to weakness. Fall risk score is high and bed alarm is activated. Remains on a fluid restriction.
[2023-11-08 05:52] LABS: Add Manual Diff / Slide Review NO; Basophils Absolute Auto 0 /uL (0-100); Basophils Percent Auto 0.5 % (0-2); Eosinophils Absolute Auto 400 /uL (0-450); Eosinophils Percent Auto 4.4 % (2-4); Hematocrit 29.9 % (36-46); Hemoglobin 10.6 g/dL (12.0-16.0); Lymphocytes Absolute Auto 1400 /uL (1100-4500); Lymphocytes Percent Auto 16.3 % (25-40); Mean Corpuscular HGB Conc 35.5 % (30-36); Mean Corpuscular Hemoglobin 29.4 PG (26-34); Monocytes Absolute Auto 500 /uL (0-900); Monocytes Percent Auto 6.4 % (3-14); Neutrophils Absolute Auto 6100 /uL (1500-7000); Neutrophils Percent Auto 72.4 % (50-75); Platelet Count 304 X10^3/uL (150-400); White Blood Cell Count 8.4 X10^3/uL (4.5-11.0)
[2023-11-08 06:09] LABS: Alanine Aminotransferase 16 IU/L (<35); Albumin 3.1 g/dL (3.5-5.0); Alkaline Phosphatase 72 U/L (38-126); Aspartate Aminotransferase 25 IU/L (14-36); BUN Creatinine Ratio 20.3 (6-22); Bilirubin Total 0.9 mg/dL (0.2-1.3); Blood Urea Nitrogen 14 mg/dL (7-17); Calcium 8.8 mg/dL (8.4-10.2); Carbon Dioxide 25 mmol/L (22-32); Chloride 91 mmol/L (98-107); Estimated Glomerular Filt Rate > 60 mL/min (>60); Glucose 112 mg/dL (80-110); HEMOLYSIS < 15 (0-50); Magnesium 1.5 mg/dL (1.6-2.3); Potassium 3.9 mmol/L (3.4-5.1); Sodium 120 mmol/L (137-145); Total Protein 6.1 g/dL (6.3-8.2)
[2023-11-08] MEDS: MAGNESIUM SULFATE 2 GM/50 ML PIGGYBACK IV (06:35)
[2023-11-08] MEDS: SODIUM CHLORIDE 0.9% FLUSH 10 ML IV ×3 (06:36→20:24)
[2023-11-08] MEDS: LIDOCAINE 5% PATCH 1 EACH TOP (09:00)
[2023-11-08] MEDS: methocarbamoL 500 MG TABLET PO ×2 (09:01→20:26)
[2023-11-08] MEDS: SENNOSIDES 8.6 MG TABLET PO ×2 (09:01→20:25)
[2023-11-08] MEDS: MONTELUKAST 10 MG TABLET PO (09:01)
[2023-11-08] MEDS: MULTIVITAMIN 1 TABLET 1 TAB PO (09:01)
[2023-11-08] MEDS: DOCUSATE 100 MG CAPSULE PO ×2 (09:01→20:25)
[2023-11-08] MEDS: ONDANSETRON 4 MG ODT PO (09:01)
[2023-11-08] MEDS: LEVOTHYROXINE 25 MCG TABLET PO (09:01)
[2023-11-08] MEDS: METOCLOPRAMIDE 10 MG/2 ML INJ 5 MG IV ×3 (09:03→20:24)
[2023-11-08] MEDS: SODIUM CHLORIDE 1,000 MG TABLET 2000 MG PO ×3 (09:59→20:25)
[2023-11-08] MEDS: BUDESONIDE 0.5 MG/2 ML NEB INH ×2 (09:59→20:20)
[2023-11-08 10:03] LABS: BUN Creatinine Ratio 18.9 (6-22); Blood Urea Nitrogen 14 mg/dL (7-17); Calcium 9.4 mg/dL (8.4-10.2); Carbon Dioxide 27 mmol/L (22-32); Chloride 89 mmol/L (98-107); Estimated Glomerular Filt Rate > 60 mL/min (>60); Glucose 123 mg/dL (80-110); HEMOLYSIS < 15 (0-50); Potassium 4.6 mmol/L (3.4-5.1); Sodium 121 mmol/L (137-145)
--- NOTE | 2023-11-08 11:22 | PT.IPTN ---
Current Diagnoses Hypo-osmolality and hyponatremia (11/06/23) Physical Therapy Treatment Note M2 PT-IP Current Condition Start: 11/07/23 12:27 Freq: NEEDED Status: Active Protocol: Document 11/07/23 09:40 AB (Rec: 11/07/23 12:41 AB [id number]) Physical Therapy Current Condition Current Condition Evaluation Date 11/07/23 Treatment Diagnosis acute hyponatremia; difficulty in walking Onset Date 11/06/23 M3 PT-IP Subjective Start: 11/07/23 12:27 Freq: NEEDED Status: Active Protocol: Document 11/08/23 11:02 MB (Rec: 11/08/23 11:22 MB [id number]) Subjective Physical Therapy Visit Type Type Treatment Note Visit Start Time 11:02 Visit Stop Time 11:17 Number of [employer]OOM Visits 0 Physical Therapy Visit Comments Patient Comments Pt is agreeable to PT. M4 PT-IP Mobility and Gait Start: 11/07/23 12:27 Freq: NEEDED Status: Active Protocol: Document 11/08/23 11:02 MB (Rec: 11/08/23 11:22 MB [id number]) PT-Bed Mobility Assessment Supine to Sit Supine to Sit Independent Sit to Supine Sit to Supine Independent Scooting Scooting to Edge of Bed Independent PT-Transfer Assessment Sit to and From Stand Sit to and from Stand Standby Assistance,1 Person Assistance,Use of Upper Extremities Equipment Transfer Assistive Device Gait Belt,Straight Cane Orthotic/Prosthetic Devices or Brace: No Transfer Ability Level of Assist Standby Assistance,1 Person Assistance,Use of Upper Extremities Comments Mobility Comments Cane is tall and pt is agreeable for PT to adjust it lower and she is able to clear it better with gait. Pt occ hands PT cane for transfers and gait Gait Assessment Gait Gait Assistance Required: Standby Assistance,Contact Guard Assist,1 Person Assist Distance (Feet) 100 Able to Maintain Weight Bearing Status Yes During Gait Assistive Devices Assistive Device Gait Belt,Straight Cane Orthotic/Prosthetic Devices or Brace: No Gait Deviations General Gait Pattern Decreased Stride Length, Decreased Feet Clearance Factors Limiting Gait Function Factors Limiting Gait Function Decreased Activity Tolerance, Decreased Strength,Poor Balance,Poor Safety Awareness Comments Gait Comments Pt occ stops to reach for wall , especially as PT adjusts cane Stair Climbing Assessment Evaluation Level of Assist On Stairs Contact Guard Assistance,1 Person Assistance Devices Stair Climbing Assistive Devices Straight Cane,Left Railing, Right Railing Technique/Endurance Stair Climbing Direction Ascend and Descend Stair Climbing Technique Step Over Step,Step to Step Number of Steps Climbed 1 Stair Climbing Set # Repetitions (reps) 1 Comments Stair Climbing Comments Pt with some impulsivity and decreased command-following with stair training and she starts with step-to and then tries step over gait, starts with cane left hand and rail right hand and then hands PT cane and uses both rails PT-Balance Assessment Sitting Balance and Reactions Static Sitting Balance Ability Good Dynamic Sitting Balance Ability Good Standing Balance and Reactions Static Standing Balance Ability Fair Dynamic Standing Balance Ability Fair Device Used SPC M5 PT-IP Objective Assessments Start: 11/07/23 12:27 Freq: NEEDED Status: Active Protocol: Document 11/07/23 09:40 AB (Rec: 11/07/23 12:41 AB [id number]) Orientation Orientation/Cognition Level of Alertness Alert Orientation Name,Place,Situation Language Function Ability No Deficits Noted Safety Awareness Decreased Safety Awareness Memory Description No Deficits Noted Gross Range of Motion Lower Extremity ROM Assessment Within Functional Limits Strength Lower Extremity Strength Assessment Within Functional Limits Muscle Tone Muscle Tone WNL Yes M6 PT-IP Treatment Start: 11/07/23 12:27 Freq: NEEDED Status: Active Protocol: Document 11/07/23 09:40 AB (Rec: 11/07/23 12:41 AB [id number]) Physical Therapy Treatment Education Education Provided Safety M7 PT-IP Assessment and Plan Start: 11/07/23 12:27 Freq: NEEDED Status: Active Protocol: Document 11/08/23 11:02 MB (Rec: 11/08/23 11:22 MB [id number]) PT Summary Assessment and Plan Potential Rehabilitation Potential Fair Status of Condition at Evaluation Evolving Summary Impairments Balance,Transfers,Gait Progress Towards Goals Progressing Toward Goals Assessment Summary Pt is progressing towards goals and has some impulsivity /decreased safety awareness with transfers and steps and she also has some imbalance. Goals Bed Mobility Goal Independent Transfer Goal Independent,Cane Gait Goal Independent,Cane Gait Distance 300 Other Goals improve transfers and ambulation using LRAD/without AD > 300 ft mod I up/down 3 steps L rail ascending mod I Days to Meet Goals 5 Frequency of Treatment Frequency Of Treatment Once a Day Treatment Plan Physical Therapy Treatment Plan Bed Mobility Training,Transfer Training,Gait Training, Therapeutic Exercise,Balance Retraining,Discharge Planning, Hot or Cold Pack,Neuromuscular Re-ed,Coordination Retraining Recommendations To Nursing Amount of Assist Needed 1 Person Assist Discharge Recommendations PT Discharge Recommendations Home with Assistance,Home Health Transportation Needs at Discharge Private Vehicle
--- NOTE | 2023-11-08 11:28 | PC.NURSE ---
Day Shift Requested tele order from MD Blanca due to patient's hyponatremia, MD stated not necessary at this time.
--- NOTE | 2023-11-08 13:36 | P.PN_ITS ---
Subjective Subjective Interval history: 78 F admitted for hyponatremia. She continues to have intermittent pain though is better today. She was having difficulty with salt tablets, but will try additional measures to improve. Sodium back up to 121. Remains asymptomatic. Exam Vital Signs (past 8 hours): - 11/08/23 08:00 11/08/23 08:00 11/08/23 10:07 Temperature 97.6 F Pulse Rate 65 64 Respiratory Rate 16 16 Blood Pressure 101/72 Pulse Oximetry 100 100 100 Oxygen Delivery Method Room Air Room Air 11/08/23 12:00 Temperature 97.6 F Pulse Rate 79 Respiratory Rate 16 Blood Pressure Pulse Oximetry 100 Oxygen Delivery Method Oxygen Delivery Method Room Air Oxygen Flow Rate 0 Narrative Exam Narrative: General:? Patient is well developed and well nourished, in no distress at this time. HEENT:? Normocephalic, atraumatic, extraocular muscles intact, oral pharynx is clear and mucous membranes are moist. Neck: supple and symmetric, trachea is midline, no cervical adenopathy. Negative for JVD Chest:? Normal AP diameter and contour without kyphoscoliosis, no tachypnea, equal chest rise bilaterally. Lungs:? CTA b/l no wheezing rhonchi or rales. Cardio:?RRR no m/r/g. Abdomen: S NT ND. No CVA tenderness. Musculoskeletal:? Muscle strength and tone are equal within normal limits, no deformity. No midline tenderness or paraspinal tenderness today. Extremities: No edema or joint effusions. No cyanosis or clubbing. Skin:? Pale,? Warm to touch,dry and intact without rashes, ulcerations or petechiae.? Neuro:? Alert and orientated x3,? sensation to touch intact in all extremities, no gross deficits noted of cranial nerves. Psych:? Patient has a well-kept appearance, appropriate affect, mental status attitude thought context and judgment are appropriate for age. Objective Labs 11/08/23 05:15 11/08/23 09:50 Labs: Laboratory Results - last 24 hr 11/07/23 11/07/23 11/07/23 09:38 13:30 17:05 WBC RBC Hgb Hct MCV MCH MCHC RDW Plt Count Neut % (Auto) Lymph % (Auto) [place] % (Auto) Eos % (Auto) Baso % (Auto) Neut # (Auto) Lymph # (Auto) [place] # (Auto) Eos # (Auto) Baso # (Auto) Sodium 121 L 121 L Potassium 4.0 4.1 Chloride 88 L 89 L Carbon Dioxide 28 24 BUN 16 17 Creatinine 0.78 0.74 Estimated GFR > 60 > 60 BUN/Creatinine Ratio 20.5 23.0 H Glucose 143 H 104 Calcium 9.5 9.5 Magnesium Total Bilirubin AST ALT Alkaline Phosphatase Total Protein Albumin Globulin Albumin/Globulin Ratio Ur Random Sodium 138 H 11/08/23 11/08/23 05:15 09:50 WBC 8.4 RBC 3.60 L Hgb 10.6 L Hct 29.9 L MCV 83.0 MCH 29.4 MCHC 35.5 RDW 13.0 Plt Count 304 Neut % (Auto) 72.4 Lymph % (Auto) 16.3 L [place] % (Auto) 6.4 Eos % (Auto) 4.4 H Baso % (Auto) 0.5 Neut # (Auto) 6100 Lymph # (Auto) 1400 [place] # (Auto) 500 Eos # (Auto) 400 Baso # (Auto) 0 Sodium 120 L 121 L Potassium 3.9 4.6 Chloride 91 L 89 L Carbon Dioxide 25 27 BUN 14 14 Creatinine 0.69 0.74 Estimated GFR > 60 > 60 BUN/Creatinine Ratio 20.3 18.9 Glucose 112 H 123 H Calcium 8.8 9.4 Magnesium 1.5 L Total Bilirubin 0.9 AST 25 ALT 16 Alkaline Phosphatase 72 Total Protein 6.1 L Albumin 3.1 L Globulin 3.0 Albumin/Globulin Ratio 1.0 Ur Random Sodium [facility] Medical History Essential hypertension Bilateral leg edema Asthma Nasal congestion CKD (chronic kidney disease) Family History Father Hyperlipidemia Social History household members: spouse Smoking Status: Former smoker Tobacco: How many years used: 30 second hand exposure: Yes (my smokes a pipe once a day.) alcohol intake: former substance use type: marijuana (1 puff once every 6 weeks.) Assessment & Plan Assessment & Plan narrative: 1. Hyponatremia, acute on chronic, present on admission - thought hypovolemia initiatially but Na worsened from 123 to 119 with fluids. Fluids stopped and placed on salt tabs with fluid restriction. Likely SIADH. - Urine sodium 78, though patient on diuretic therapy. On repeat was even higher despite holding diuretic. Consider starting furosemide later if no further improvement. - UA negative for infection, CT done given non-descript pain to rule out obstructing stone which was negative. Will repeat again today with dysuria. - unclear if pain is related to hyponatremia or not, continue symptom treatment with pain medications, will trial musculoskeletal relief as well with lidocaine patch, tylenol, and added robaxin today. Her fatigue and lethargy is likely related to her hyponatremia. - PT/OT ordered 2. Hypokalemia, acute, present on admission. - received 60 mEq in the ER, improved to 4.6. - Mg okay at 2.2 now to 1.5. Repleted today. 3. HTN - will fully stop home atenolol - chlorthalidone combo pill as patient is already on carvedilol it seems and with worsening hyponatremia on outpatient labs chlorthalidone is not preferred as well. - continue carvedilol, may need to increase if hypertensive. Patient on 3.125 mg BID. - consider furosemide as discussed above for assistance with fluid management in SIADH. 4. Asthma without exacerbation - will replace patient's home dulera with formulary nebulizers. albuterol prn. Code:Full, surrogate is patient's spouse DVT: Lovenox I have utilized all available immediate resources to obtain, update, or review the patient's current medications. Dispo: Patient admitted under inpatient status given possibly symptomatic hyponatremia with Na of 123 on presentation and stay is expected to last longer than two midnights. Quality VTE Deep Vein Thrombosis/Pulmonary Embolism Present on Admission: No
--- NOTE | 2023-11-08 15:24 | CM.DPNOTE ---
DCP Note [facility] reviewed EMR. Per provider, pt will be here until sodium is WNL. Potentially a few days. Per PT, rec home with HH. [facility] met with pt in room. Pt resting and reports eager to dc home. Pt agreeable to HH. Reports just wanting PT. No OT bc OLGA Is OT and can help her at home. Preference is [facility]. [facility] faxed facesheet, F2F, order, H&P, and PT notes to [facility]. [facility] spoke with Dipika at [facility]. Agreed to review. Plan: home with family and [facility] pending acceptance for PT. CM team will follow for any additional CM needs. YENNIFER Javier
[2023-11-08 16:34] LABS: BUN Creatinine Ratio 17.4 (6-22); Blood Urea Nitrogen 15 mg/dL (7-17); Calcium 9.7 mg/dL (8.4-10.2); Carbon Dioxide 30 mmol/L (22-32); Chloride 92 mmol/L (98-107); Estimated Glomerular Filt Rate > 60 mL/min (>60); Glucose 115 mg/dL (80-110); HEMOLYSIS < 15 (0-50); Potassium 4.8 mmol/L (3.4-5.1); Sodium 125 mmol/L (137-145)
[2023-11-08] MEDS: carvediloL 3.125 MG TABLET PO (20:25)
[2023-11-08 22:42] LABS: BUN Creatinine Ratio 19.5 (6-22); Blood Urea Nitrogen 15 mg/dL (7-17); Calcium 9.1 mg/dL (8.4-10.2); Carbon Dioxide 27 mmol/L (22-32); Chloride 95 mmol/L (98-107); Estimated Glomerular Filt Rate > 60 mL/min (>60); Glucose 109 mg/dL (80-110); HEMOLYSIS < 15 (0-50); Potassium 4.5 mmol/L (3.4-5.1); Sodium 125 mmol/L (137-145)
[2023-11-09] VITALS (13 sets, daily range): BP systolic 133–173; BP diastolic 56–82; PULSE 68–73; RESP 16–19; TEMP 35.9–36.5; O2SAT 97–100
[2023-11-09] MEDS: LEVOTHYROXINE 25 MCG TABLET PO (05:39)
[2023-11-09 06:09] LABS: Alanine Aminotransferase 18 IU/L (<35); Albumin 3.1 g/dL (3.5-5.0); Albumin Globulin Ratio 1.1 (1.0-2.8); Alkaline Phosphatase 74 U/L (38-126); Aspartate Aminotransferase 26 IU/L (14-36); BUN Creatinine Ratio 20.8 (6-22); Bilirubin Total 0.7 mg/dL (0.2-1.3); Blood Urea Nitrogen 15 mg/dL (7-17); Calcium 9.1 mg/dL (8.4-10.2); Carbon Dioxide 25 mmol/L (22-32); Chloride 95 mmol/L (98-107); Estimated Glomerular Filt Rate > 60 mL/min (>60); Globulin 2.9 g/dL (1.7-4.1); Glucose 107 mg/dL (80-110); HEMOLYSIS < 15 (0-50); Magnesium 1.5 mg/dL (1.6-2.3); Potassium 4.1 mmol/L (3.4-5.1); Sodium 124 mmol/L (137-145)
[2023-11-09 06:16] LABS: Add Manual Diff / Slide Review NO; Basophils Absolute Auto 100 /uL (0-100); Basophils Percent Auto 0.8 % (0-2); Eosinophils Absolute Auto 400 /uL (0-450); Eosinophils Percent Auto 5.2 % (2-4); Hematocrit 30.1 % (36-46); Hemoglobin 10.6 g/dL (12.0-16.0); Lymphocytes Absolute Auto 1900 /uL (1100-4500); Lymphocytes Percent Auto 23.4 % (25-40); Mean Corpuscular HGB Conc 35.3 % (30-36); Mean Corpuscular Hemoglobin 29.4 PG (26-34); Mean Corpuscular Volume 83.2 fL (80-100); Monocytes Absolute Auto 900 /uL (0-900); Monocytes Percent Auto 10.6 % (3-14); Neutrophils Absolute Auto 4800 /uL (1500-7000); Platelet Count 286 X10^3/uL (150-400); Red Blood Cell Count 3.61 X10^6/uL (4.0-5.2); Red Cell Distribution Width 13.1 % (11.6-14.8); White Blood Cell Count 8.1 X10^3/uL (4.5-11.0)
[2023-11-09] MEDS: METOCLOPRAMIDE 10 MG/2 ML INJ 5 MG IV ×3 (08:25→20:15)
[2023-11-09] MEDS: BUDESONIDE 0.5 MG/2 ML NEB INH ×2 (08:50→20:08)
[2023-11-09] MEDS: MAGNESIUM SULFATE 4 GM/100 ML PIGGYBACK IV (09:01)
[2023-11-09] MEDS: SODIUM CHLORIDE 1,000 MG TABLET 2000 MG PO ×3 (09:02→21:07)
[2023-11-09] MEDS: MONTELUKAST 10 MG TABLET PO (09:02)
[2023-11-09] MEDS: methocarbamoL 500 MG TABLET PO ×2 (09:02→21:06)
[2023-11-09] MEDS: carvediloL 3.125 MG TABLET PO ×2 (09:02→21:06)
[2023-11-09] MEDS: MULTIVITAMIN 1 TABLET 1 TAB PO (09:02)
[2023-11-09] MEDS: LIDOCAINE 5% PATCH 1 EACH TOP (09:03)
[2023-11-09] MEDS: SODIUM CHLORIDE 0.9% FLUSH 10 ML IV ×2 (09:04→20:16)
--- NOTE | 2023-11-09 10:37 | OT.IP.EVAL ---
Current Diagnoses Hypo-osmolality and hyponatremia (11/06/23) Past Medical History (Last Reviewed 11/06/23 @ 17:29 by Chapo lBanca DO) Asthma Bilateral leg edema CKD (chronic kidney disease) Essential hypertension Nasal congestion Occupational Therapy Inpatient Evaluation/Re-Eval M1 PT/OT-IP Prior Functional Status Start: 11/07/23 12:27 Freq: NEEDED Status: Active Protocol: Document 11/07/23 09:40 AB (Rec: 11/07/23 12:41 AB [id number]) Medical Review Prior Functional Status Medical History Reviewed Yes Communication able to make needs known Mobility and Gait pt stated that she was modified independent with all mobilities and ambulation without AD but uses a SPC on/ off depending on how she feels but has been using it more frequently for the last week due to weakness Social History Household Members spouse Living Arrangements House Number of Floors (Floors) One Floor Number of Stairs To Enter/Railing? 3 steps L rail ascending to enter the house Home Environment Standard Height Toilet,Built- In Shower Seat Home Equipment Straight Cane M1 PT/OT-IP Prior Functional Status Start: 11/09/23 10:18 Freq: NEEDED Status: Active Protocol: Document 11/09/23 09:15 TROY (Rec: 11/09/23 10:37 TROY [id number]) Medical Review Prior Functional Status Medical History Reviewed Yes Communication able to make needs known Mobility and Gait pt stated that she was modified independent with all mobilities and ambulation without AD but uses a SPC on/ off depending on how she feels but has been using it more frequently for the last week due to weakness Activities of Daily Living and IADL's pt reports that 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 pt has B rails for three steps to enter. Home Environment Standard Height Toilet,Walk in Shower Home Equipment Straight Cane Additional Social History Comment Pt and spouse enjoy playing computer games and reading. Pt was I with driving. M2 OT-IP Current Condition Start: 11/09/23 10:18 Freq: Status: Active Protocol: Document 11/09/23 09:15 TROY (Rec: 11/09/23 10:37 TROY [id number]) Occupational Therapy Current Condition Current Condition Evaluation Date 11/09/23 Treatment Diagnosis pain in pelvis/LE, hyponatremia Diagnosis Onset Date 11/06/23 M3 OT- IP Subjective and Pain Start: 11/09/23 10:18 Freq: Status: Active Protocol: Document 11/09/23 09:15 TROY (Rec: 11/09/23 10:37 [facility] [id number]) OT- Subjective Occupational Therapy Visit Type Type Initial Evaluation Visit Start Time 09:15 Visit Stop Time 09:43 Notes Pt reclined in bed receiving meds on entrance of OT. Pt was agreeable to participating in OT evaluation. Occupational Therapy Visit Comments Patient Comments I want to go home. Pt reports that her daughter is a nurse and her son in law is an OT. Pt does not want to have OT upon d/c. OT Pain Assessment Pain When Pain Assessed At Rest Pain Present Pain Present Pain Reported Location lower back/upper thighs Intensity 4 Scale Used Numeric (0 - 10) Description Radiating M4 OT- IP ADL's Start: 11/09/23 10:18 Freq: Status: Active Protocol: Document 11/09/23 09:15 TROY (Rec[facility]09/23 10:37 [id number] OT YRK-[id number]-Vrxsqaj General Evaluation Self-Feeding Ability Independent Comments OT Self-Feeding Comments Pt I with taking medications. OT ADL-Grooming General Evaluation Grooming Ability Standby Assistance Comments OT Grooming Comments sink side using SC or counter for balance OT ADL-Oral Care General Eval Oral Care Ability Standby Assistance Comments Oral Care Comments sink side using SC or counter for balance OT ADL-Dressing General Eval Upper Body Dressing Ability Independent,Standby Assistance Lower Body Dressing Ability Independent,Standby Assistance Comments OT Dressing Comments Pt dons socks while sitting EOB. Pt declines performing other dressing during eval, no deficits expected. OT ADL-Toileting General Evaluation Toileting Ability Standby Assistance Comments OT Toileting Comments Pt manages clothing and hygiene with SBA. OT ADL-Bathing Comments OT Bathing Comments Not observed. No deficits anticipated. M5 OT- IP IADL's Start: 11/09/23 10:18 Freq: Status: Active Protocol: Document 11/09/23 09:15 TROY (Rec: 11/09/23 10:37 [facility] [id number]) OT-Instrumental Activities of Daily Living Home Safety Awareness Awareness of Need for Assistance at Home Good Awareness Ability to Problem Solve Emergency Able to Problem Solve Situations Medication Management Medication Management No Deficits Identified Money Management Money Management No Deficits Identified Meal Preparation Meal Preparation Caregiver Provides Assist Meal Preparation Comments spouse is able to assist if needed Emergency Department Technician Emergency Department Technician Caregiver Provides Assist Emergency Department Technician Comments spouse is able to assist if needed Driving Driving Caregiver Provides Assist Driving Comments spouse is able to assist if needed M6 OT- IP Functional Cognition Start: 11/09/23 10:18 Freq: Status: Active Protocol: Document 11/09/23 09:15 [facility] (Rec: 11/09/23 10:37 [facility] [id number]) Cognitive Factors Limiting Selfcare Function Cognitive Ability Level of Alertness Alert Patient Orientation Name,Age,Birthday,Month,Date, Year,Day of Week,Place, Situation Attention Span Ability Capable of Focused Attention, Capable of Sustained Attention Ability to Follow Commands Able to Follow One Step Commands,Able to Follow Multi- Step Commands Memory Description No Deficits Noted Safety Awareness No Deficits Noted Problem Solving Ability No deficits Noted Executive Function Ability No Deficits Noted Abstract Thinking Ability No Deficits Noted OT- Vision and Hearing OT- Hearing Assessment OT- Hearing Assessment WFL OT- Vision Assessment Visual Acuity WFL,Glasses All The Time M7 OT- IP Mobility and Balance Start: 11/09/23 10:18 Freq: Status: Active Protocol: Document 11/09/23 09:15 TROY (Rec: 11/09/23 10:37 [facility] [id number]) OT- Bed Mobility Assessment Supine to Sit Supine to Sit Assist Independent Sit to Supine Sit to Supine Assist Standby Assistance Scooting Scooting to Edge of Bed Independent Scooting Up and Down in Bed Independent OT-Transfer Assessment Sit to and From Stand Sit to and from Stand Standby Assistance Transfers Transfer Ability Standby Assistance Technique Transfer Destination Bed,Toilet Transfer Technique Stand Step Pivot Devices Transfer Assistive Devices Gait Belt,Straight Cane Comments Mobility Comments Pt performed sit<>stand twice from bed and once at toilet. Pt performs with SBA. Pt performs safely, reaching for grab bar beside toilet and using UE to assist with pushing to stand. OT- Gait Assessment Gait Gait Assistance Required: Standby Assistance Distance (Feet) 50 Assistive Devices Assistive Device Gait Belt,Straight Cane Comments Gait Ability Comments Pt ambulated with SC from bed to bathroom x4 reps with SBA. OT manges pt's IV during amb. Pt was steady and exhibit no LOB. OT- Balance Assessment Sitting Balance and Reactions Static Sitting Balance Ability Normal Dynamic Sitting Balance Ability Normal Standing Balance and Reactions Static Standing Balance Ability Normal Dynamic Standing Balance Ability Good M8 OT- IP Objective Assessments Start: 11/09/23 10:18 Freq: Status: Active Protocol: Document 11/09/23 09:15 [facility] (Rec: 11/09/23 10:37 [facility] [id number]) OT Gross Range of Motion Upper Extremity Range of Motion Assessment Within Functional Limits OT Strength Upper Extremity Strength Assessment Within Functional Limits Hand Wire Inspector Strength Hand Dominance Left Comments Strength Comments Pt's R UE strength is 4/5 overall. Pt's L shoulder is 4/ 5, L forearm/hand not tested due to placement of IV. OT- Coordination Assessment Upper Extremity Finger to Nose Test Within Functional Limits Finger Tapping Test Within Functional Limits OT-Muscle Tone Assessment Muscle Tone WNL Yes OT Sensation Assessment Edema Edema Absent M9 OT- IP Assessment and Plan Start: 11/09/23 10:18 Freq: Status: Active Protocol: Document 11/09/23 09:15 [facility] (Rec: 11/09/23 10:37 [facility] [id number]) OT Summary Assessment and Plan Potential Rehabilitation Potential Excellent Analytic Complexity at Evaluation Low Summary OT Impairments Pain,Activity Tolerance Progress Towards Goals Progressing Toward Goals Assessment Summary Pt is a 78 yo F who was admitted through the ED with complaints of radiating pain in her pelvis and upper thighs . Prior to this pt had veen sick with stomach bug. Pt was found to have hyponatremia. Pt continues to have pain, although she reports that it has lessened some. Pt lives with her spouse and two cats. 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 Pt demonstrates good safety awareness. At time of eval, pt is functioning at or near baseline with respect to OT scope of practice. Pt verbalizes that she does not think she needs OT and that if she does, her son in law can help on d/c. Frequency of Treatment Frequency Of Treatment Discharge Discharge Recommendations OT Discharge Recommendations Home,Home Health Home Equipment Needs shower stool/bench, grab bars in shower and near toielt Transportation Needs at Discharge Private Vehicle
--- NOTE | 2023-11-09 11:10 | CM.DPNOTE ---
DCP Note DISPATCH SPECIALIST reviewed EMR. Per provider in morning rounds, may dc today pending sodium. DISPATCH SPECIALIST spoke with Ary at [facility]. Reports likely can accept pt-SOC for just PT is 3 weeks out. With RN, could start soon. DISPATCH SPECIALIST met with pt in room. Confirm wanting [facility]- agreeable to adding RN to monitor sodium. report no additional needs Plan: home with spouse when sodium lvls WNL. [facility] to follow for RN/PT. CM team will continue to follow as needed. YENNIFER Javier
--- NOTE | 2023-11-09 11:39 | PT-IP ANOTE ---
Pt declines therapy in AM stating that she doesn't want to move with the IV, when educated that it is OK to move around in the room she states that she already did that with OT, and she feels like she just needs to rest.
[2023-11-09 14:02] LABS: Sodium 124 mmol/L (137-145)
--- NOTE | 2023-11-09 15:23 | PC.NURSE ---
Day shift: Patient's Na still 124. MD Simon ordered 3% sodium chloride. Pt transferred to ICU for more careful monitoring. Spoke with patient about the necessity for transfer and reassured patient and her spouse. Gave report to LV Padilla who took over care at 1520.
[2023-11-09] MEDS: SODIUM CHLORIDE 3 % 50 ML IV (16:49)
[2023-11-09 17:18] LABS: Sodium 124 mmol/L (137-145)
--- NOTE | 2023-11-09 17:29 | P.PN_ITS ---
Subjective Subjective Interval history: Sodium slow to improve now, stuck at 124-125. Patient ok moving to the ICU to try hypertonic saline. Exam Vital Signs (past 8 hours): - 11/09/23 12:00 11/09/23 12:00 11/09/23 16:00 Temperature 97.5 F L Pulse Rate 71 69 Respiratory Rate 18 18 Blood Pressure 133/57 L 173/74 H Pulse Oximetry 100 100 100 Oxygen Delivery Method Room Air Oxygen Flow Rate 0 0 Fraction of Inspired Oxygen 21 SaO2/FiO2 Ratio 476 Oxygen Delivery Method Room Air Oxygen Flow Rate 0 Narrative Exam Narrative: General:? Patient is well developed and well nourished, in no distress at this time. HEENT:? Normocephalic, atraumatic, extraocular muscles intact, oral pharynx is clear and mucous membranes are moist. Neck: supple and symmetric, trachea is midline, no cervical adenopathy. Negative for JVD Chest:? Normal AP diameter and contour without kyphoscoliosis, no tachypnea, equal chest rise bilaterally. Lungs:? CTA b/l no wheezing rhonchi or rales. Cardio:?RRR no m/r/g. Abdomen: S NT ND. No CVA tenderness. Musculoskeletal:? Muscle strength and tone are equal within normal limits, no deformity. No midline tenderness or paraspinal tenderness today. Extremities: No edema or joint effusions. No cyanosis or clubbing. Skin:? Pale,? Warm to touch,dry and intact without rashes, ulcerations or petechiae.? Neuro:? Alert and orientated x3,? sensation to touch intact in all extremities, no gross deficits noted of cranial nerves. Psych:? Patient has a well-kept appearance, appropriate affect, mental status attitude thought context and judgment are appropriate for age. Objective Labs 11/09/23 05:30 11/09/23 16:45 Labs: Laboratory Results - last 24 hr 11/08/23 11/09/23 11/09/23 22:20 05:30 13:50 WBC 8.1 RBC 3.61 L Hgb 10.6 L Hct 30.1 L MCV 83.2 MCH 29.4 MCHC 35.3 RDW 13.1 Plt Count 286 Neut % (Auto) 60.0 Lymph % (Auto) 23.4 L Mercer % (Auto) 10.6 Eos % (Auto) 5.2 H Baso % (Auto) 0.8 Neut # (Auto) 4800 Lymph # (Auto) 1900 Mercer # (Auto) 900 Eos # (Auto) 400 Baso # (Auto) 100 Sodium 125 L 124 L 124 L Potassium 4.5 4.1 Chloride 95 L 95 L Carbon Dioxide 27 25 BUN 15 15 Creatinine 0.77 0.72 Estimated GFR > 60 > 60 BUN/Creatinine Ratio 19.5 20.8 Glucose 109 107 Calcium 9.1 9.1 Magnesium 1.5 L Total Bilirubin 0.7 AST 26 ALT 18 Alkaline Phosphatase 74 Total Protein 6.0 L Albumin 3.1 L Globulin 2.9 Albumin/Globulin Ratio 1.1 11/09/23 16:45 WBC RBC Hgb Hct MCV MCH MCHC RDW Plt Count Neut % (Auto) Lymph % (Auto) Mercer % (Auto) Eos % (Auto) Baso % (Auto) Neut # (Auto) Lymph # (Auto) Mercer # (Auto) Eos # (Auto) Baso # (Auto) Sodium 124 L Potassium Chloride Carbon Dioxide BUN Creatinine Estimated GFR BUN/Creatinine Ratio Glucose Calcium Magnesium Total Bilirubin AST ALT Alkaline Phosphatase Total Protein Albumin Globulin Albumin/Globulin Ratio [facility] Medical History Essential hypertension Bilateral leg edema Asthma Nasal congestion CKD (chronic kidney disease) Family History Father Hyperlipidemia Social History household members: spouse Smoking Status: Former smoker Tobacco: How many years used: 30 second hand exposure: Yes (my smokes a pipe once a day.) alcohol intake: former substance use type: marijuana (1 puff once every 6 weeks.) Assessment & Plan Assessment & Plan narrative: 1. Hyponatremia, acute on chronic, present on admission - thought hypovolemia initiatially but Na worsened from 123 to 119 with fluids. Fluids stopped and placed on salt tabs with fluid restriction. Likely SIADH. - Urine sodium 78, though patient on diuretic therapy. On repeat was even higher despite holding diuretic. Consider starting furosemide later if no further improvement. - unclear if pain is related to hyponatremia or not, continue symptom treatment with pain medications, will trial Her fatigue and lethargy is likely related to her hyponatremia. - PT/OT ordered and rec HH - Na now not improving past 124, will trial hypertonic saline - continue q4h BMP's 2. Hypokalemia, acute, present on admission. - received 60 mEq in the ER, improved to 4.6. - Mg okay at 2.2 now to 1.5. - replete PRN 3. HTN - will fully stop home atenolol - chlorthalidone combo pill as patient is already on carvedilol it seems and with worsening hyponatremia on outpatient labs chlorthalidone is not preferred as well. - continue carvedilol, may need to increase if hypertensive. Patient on 3.125 mg BID. - consider furosemide as discussed above for assistance with fluid management in SIADH. 4. Asthma without exacerbation - will replace patient's home dulera with formulary nebulizers. albuterol prn. 5. Back pain - continue musculoskeletal relief with lidocaine patch, tylenol, and added robaxin - patient notes improved pain Code:Full, surrogate is patient's spouse DVT: Lovenox I have utilized all available immediate resources to obtain, update, or review the patient's current medications. I spent a total of 35 minutes of critical care time on this patient's care today; this time is exclusive of procedural time. Dispo: Patient admitted under inpatient status given possibly symptomatic hyponatremia with Na of 123 on presentation and stay is expected to last longer than two midnights. Quality VTE Deep Vein Thrombosis/Pulmonary Embolism Present on Admission: No
[2023-11-09 20:43] LABS: Sodium 123 mmol/L (137-145)
[2023-11-09] MEDS: TRAMADOL 50 MG TABLET PO (22:51)
[2023-11-10] VITALS (9 sets, daily range): BP systolic 133–160; BP diastolic 59–70; PULSE 63–83; RESP 14–17; TEMP 36.3–36.7; O2SAT 97–100
[2023-11-10 00:20] LABS: Sodium 123 mmol/L (137-145)
[2023-11-10] MEDS: ONDANSETRON 4 MG ODT PO ×2 (00:35→13:36)
[2023-11-10 05:24] LABS: BUN Creatinine Ratio 15.6 (6-22); Blood Urea Nitrogen 10 mg/dL (7-17); Carbon Dioxide 27 mmol/L (22-32); Chloride 94 mmol/L (98-107); Estimated Glomerular Filt Rate > 60 mL/min (>60); Glucose 112 mg/dL (80-110); HEMOLYSIS < 15 (0-50); Magnesium 1.8 mg/dL (1.6-2.3); Sodium 122 mmol/L (137-145)
--- NOTE | 2023-11-10 06:42 | PC.NURSE ---
Motor Polarizer Note-Patient dozed intermittently. Into the BR frequently with SBA and cane, steady. A bit forgetful, but oriented to person, place, date, and situation. Tramadol given for headache-effective, Robaxin given for Rt hip pain-effective, PO Zofran given for mild nausea-effective. Pre-medicated with IV Reglan prior to giving sodium tabs. Na+ drawn Q4h.
[2023-11-10] MEDS: LEVOTHYROXINE 25 MCG TABLET PO (07:20)
[2023-11-10] MEDS: BUDESONIDE 0.5 MG/2 ML NEB INH ×2 (08:24→19:45)
[2023-11-10] MEDS: METOCLOPRAMIDE 10 MG/2 ML INJ 5 MG IV ×3 (08:32→20:21)
--- NOTE | 2023-11-10 09:09 | PM.PN.1 ---
Subjective Subjective Interval history: Started hypertonic saline with no improvement in sodium. Will switch to salt tabs and fluid restriction. Patient has no complaints other than wanting to go home. Exam Vital Signs (past 8 hours): Fraction of Inspired Oxygen 21 SaO2/FiO2 Ratio 476 Oxygen Delivery Method Room Air Oxygen Flow Rate 0 Narrative Exam Narrative: General:? Patient is well developed and well nourished, in no distress at this time. HEENT:? Normocephalic, atraumatic, extraocular muscles intact, oral pharynx is clear and mucous membranes are moist. Neck: supple and symmetric, trachea is midline, no cervical adenopathy. Negative for JVD Chest:? Normal AP diameter and contour without kyphoscoliosis, no tachypnea, equal chest rise bilaterally. Lungs:? CTA b/l no wheezing rhonchi or rales. Cardio:?RRR no m/r/g. Abdomen: S NT ND. No CVA tenderness. Musculoskeletal:? Muscle strength and tone are equal within normal limits, no deformity. No midline tenderness or paraspinal tenderness today. Extremities: No edema or joint effusions. No cyanosis or clubbing. Skin:? Pale,? Warm to touch,dry and intact without rashes, ulcerations or petechiae.? Neuro:? Alert and orientated x3,? sensation to touch intact in all extremities, no gross deficits noted of cranial nerves. Psych:? Patient has a well-kept appearance, appropriate affect, mental status attitude thought context and judgment are appropriate for age. Objective Labs 11/09/23 05:30 11/11/23 05:00 [facility] Medical History Essential hypertension Bilateral leg edema Asthma Nasal congestion CKD (chronic kidney disease) Family History Father Hyperlipidemia Social History household members: spouse Smoking Status: Former smoker Tobacco: How many years used: 30 second hand exposure: Yes (my smokes a pipe once a day.) alcohol intake: former substance use type: marijuana (1 puff once every 6 weeks.) Assessment & Plan Assessment & Plan narrative: 1. Hyponatremia, acute on chronic, present on admission - thought hypovolemia initiatially but Na worsened from 123 to 119 with fluids. Fluids stopped and placed on salt tabs with fluid restriction. Likely SIADH. - Urine sodium 78, though patient on diuretic therapy. On repeat was even higher despite holding diuretic. Consider starting furosemide later if no further improvement. - unclear if pain is related to hyponatremia or not, continue symptom treatment with pain medications, will trial Her fatigue and lethargy is likely related to her hyponatremia. - PT/OT ordered and rec HH - Na now not improving past 124, will trial hypertonic saline - continue q4h BMP's 2. Hypokalemia, acute, present on admission. - received 60 mEq in the ER, improved to 4.6. - Mg okay at 2.2 now to 1.5. - replete PRN 3. HTN - will fully stop home atenolol - chlorthalidone combo pill as patient is already on carvedilol it seems and with worsening hyponatremia on outpatient labs chlorthalidone is not preferred as well. - continue carvedilol, may need to increase if hypertensive. Patient on 3.125 mg BID. - consider furosemide as discussed above for assistance with fluid management in SIADH. 4. Asthma without exacerbation - will replace patient's home dulera with formulary nebulizers. albuterol prn. 5. Back pain - continue musculoskeletal relief with lidocaine patch, tylenol, and added robaxin - patient notes improved pain Code:Full, surrogate is patient's spouse DVT: Lovenox I have utilized all available immediate resources to obtain, update, or review the patient's current medications. I spent a total of 35 minutes of critical care time on this patient's care today; this time is exclusive of procedural time. Dispo: Patient admitted under inpatient status given possibly symptomatic hyponatremia with Na of 123 on presentation and stay is expected to last longer than two midnights. Quality VTE Deep Vein Thrombosis/Pulmonary Embolism Present on Admission: No
[2023-11-10] MEDS: SODIUM CHLORIDE 3 % 100 ML 20 ML IV (09:16)
[2023-11-10] MEDS: DOCUSATE 100 MG CAPSULE PO (09:16)
[2023-11-10] MEDS: carvediloL 3.125 MG TABLET PO ×2 (09:16→21:11)
[2023-11-10] MEDS: ENOXAPARIN 40 MG/0.4 ML SYRINGE SUBCUT (09:16)
[2023-11-10] MEDS: MONTELUKAST 10 MG TABLET PO (09:17)
[2023-11-10] MEDS: MULTIVITAMIN 1 TABLET 1 TAB PO (09:17)
[2023-11-10] MEDS: SENNOSIDES 8.6 MG TABLET PO (09:17)
[2023-11-10] MEDS: SODIUM CHLORIDE 1,000 MG TABLET 2000 MG PO ×3 (09:17→21:12)
[2023-11-10] MEDS: LIDOCAINE 5% PATCH 1 EACH TOP (09:17)
--- NOTE | 2023-11-10 11:08 | PT-IP ANOTE ---
Pt refused to work with PT this morning. She is currently hooked to her IV and does not want to get out of bed. Asked pt if she would like therapist to return later today and she does not. Spouse would like PT to continue to check on her, he does not believe she is doing as well as she was.
--- NOTE | 2023-11-10 12:14 | PC.NURSE ---
Q 4 hour sodium checks were ordered this morning by Dr. Simon. 3% saline solution ordered (clarified by pharmacy for administration per policy) and started approx 915am (see MAR). Patient tolerating well. Clarified with Dr. Simon, that sodium Q4 hour checks are to start after infusion is finished. Will wait until completed to draw, continue to monitor and follow.
[2023-11-10] MEDS: SODIUM CHLORIDE 0.9% FLUSH 10 ML IV ×3 (14:13→21:12)
[2023-11-10 14:36] LABS: Sodium 123 mmol/L (137-145)
[2023-11-10] MEDS: FUROSEMIDE 20 MG/2 ML VIAL IV (15:43)
[2023-11-10] MEDS: TRAMADOL 50 MG TABLET PO (17:40)
--- NOTE | 2023-11-10 17:55 | PC.NURSE ---
Patient feeling fatigued from her visit with her daughter and her multiple trips into the bathroom this afternoon. Requesting to try female external catheter. Patient currently sleeping in bed, call light within reach. Bed alarm active for safety. A waiting results of 1700 Na level.
[2023-11-10 17:58] LABS: Sodium 124 mmol/L (137-145)
[2023-11-10] MEDS: methocarbamoL 500 MG TABLET PO (21:27)
[2023-11-10 21:39] LABS: Sodium 123 mmol/L (137-145)
[2023-11-11] VITALS: BP 135/73; PULSE 71; RESP 16; TEMP 36.3; O2SAT 97; O2SAT 98
[2023-11-11 04:00] VITALS: BP 140/65; PULSE 71; RESP 16; TEMP 36.4; O2SAT 95
[2023-11-11 05:00] VITALS: O2SAT 97
[2023-11-11 05:39] LABS: BUN Creatinine Ratio 17.5 (6-22); Blood Urea Nitrogen 14 mg/dL (7-17); Calcium 9.1 mg/dL (8.4-10.2); Carbon Dioxide 26 mmol/L (22-32); Chloride 95 mmol/L (98-107); Estimated Glomerular Filt Rate > 60 mL/min (>60); Glucose 92 mg/dL (80-110); HEMOLYSIS < 15 (0-50); Potassium 4.5 mmol/L (3.4-5.1); Sodium 123 mmol/L (137-145)
[2023-11-11 05:40] LABS: Magnesium 1.7 mg/dL (1.6-2.3)
[2023-11-11 08:00] VITALS: BP 160/63; PULSE 71; RESP 16; TEMP 36.9; O2SAT 97
[2023-11-11] MEDS: carvediloL 3.125 MG TABLET PO (08:37)
[2023-11-11] MEDS: MONTELUKAST 10 MG TABLET PO (08:37)
[2023-11-11] MEDS: LEVOTHYROXINE 25 MCG TABLET PO (08:37)
[2023-11-11] MEDS: ENOXAPARIN 40 MG/0.4 ML SYRINGE SUBCUT (08:37)
[2023-11-11] MEDS: MULTIVITAMIN 1 TABLET 1 TAB PO (08:37)
[2023-11-11] MEDS: LIDOCAINE 5% PATCH 1 EACH TOP (08:38)
[2023-11-11] MEDS: METOCLOPRAMIDE 10 MG/2 ML INJ 5 MG IV ×2 (08:38→13:34)
[2023-11-11] MEDS: SODIUM CHLORIDE 0.9% FLUSH 10 ML IV (08:39)
[2023-11-11] MEDS: FUROSEMIDE 20 MG/2 ML VIAL IV (08:42)
[2023-11-11] MEDS: methocarbamoL 500 MG TABLET PO (09:14)
[2023-11-11] MEDS: SODIUM CHLORIDE 1,000 MG TABLET 2000 MG PO ×2 (09:14→14:08)
[2023-11-11] MEDS: TRAMADOL 50 MG TABLET PO (09:14)
[2023-11-11] MEDS: BUDESONIDE 0.5 MG/2 ML NEB INH (10:43)
[2023-11-11 11:30] VITALS: BP 104/53; PULSE 71; RESP 17; TEMP 36.7; O2SAT 96
--- NOTE | 2023-11-11 12:19 | PM.DS.1 ---
History of Present Illness History of Present Illness Chief complaint: pain in pelvis and legs Narrative: This is a 78 year old female with PMH of asthma and HTN who presented with intermittent back and leg pain over the last 3 days or so. Patient describes the pain as sharp, but cannot localize the pain to one specific point. Pain has been in her back on both sides, bilateral legs, and arms. Nothing seems to provoke or palliate the symptoms. Pain seems to be worse at night, she slept in a chair the other evening because she has been having positional pain. She denies recent fever, but appetite has been much diminished since a recent viral illness about a week ago. She had diarrhea at that time, but largely those symptoms have resolved. She denies any chest pain, shortness of breath, abdominal pain, dysuria or urinary frequency. She takes metoprolol along with atenolol-chlorthalidone combination antihypertensive. relates that the patient has not been herself the past few days, with fatigue, slowness, and generalized malaise. In the emergency room, patient's vitals were unremarkable. Labs showed a sodium of 123, K of 3.0. UA was negative. CT abdomen was requested and showed enteritis with some stool burden. Urine sodium was 87 (though patient on chlorthalidone). She was ordered for potassium repletion and 1L NS infusion. After initial evaluation, patient was admitted for further management of hyponatremia. Discharge Providers Provider Date of admission: 11/06/23 17:26 Discharge Date: 11/11/23 Primary care physician: Reva Hanna DO Consults: 11/06/23 18:24 Consult to Occupational Therapy Evaluate & Treat Comment: Physician Instructions: Evaluate and treat Consult to Physical Therapy Evaluate & Treat Comment: Physician Instructions: Evaluate and Treat 11/08/23 15:23 Consult to Home Health Routine Comment: Reason For Exam: PT Discharge provider: Armando Simon DO Summary Hospital Course Discharge Diagnosis: 1. Hyponatremia, acute on chronic, present on admission - thought hypovolemia initiatially but Na worsened from 123 to 119 with fluids. Fluids stopped and placed on salt tabs with fluid restriction. Likely SIADH. - Urine sodium 78, though patient on diuretic therapy. On repeat was even higher despite holding diuretic. Consider starting furosemide later if no further improvement. - unclear if pain is related to hyponatremia or not, continue symptom treatment with pain medications, will trial Her fatigue and lethargy is likely related to her hyponatremia. - PT/OT ordered and rec HH - Na now improved to 123-124, will continue salt tabs at home - stopped chlorthalidone on discharge as may be contributing 2. Hypokalemia, acute, present on admission. - received 60 mEq in the ER, improved to 4.6. - Mg okay at 2.2 now to 1.5. - replete PRN 3. HTN - will fully stop home atenolol - chlorthalidone combo pill as patient is already on carvedilol it seems and with worsening hyponatremia on outpatient labs chlorthalidone is not preferred as well. - continue carvedilol, may need to increase if hypertensive. Patient on 3.125 mg BID. - consider furosemide as discussed above for assistance with fluid management in SIADH. 4. Asthma without exacerbation - will replace patient's home dulera with formulary nebulizers. albuterol prn. 5. Back pain - continue musculoskeletal relief with lidocaine patch, tylenol, and added robaxin - patient notes improved pain - prescribed meds as above on dc Hospital Course: Admitted for back pain and weakness, found to have low sodium. Recieved IVF and Na worsened. Put on fluid restriction and salt tabs and sodium slowly improved. Trialed hypertonic saline, which did nothing to improve the sodium. She was feeling better, and PT recommending HH. She was discharged home on salt tabs and her home chlorthalidone was stopped. She will f/up with PCP about ongoing monitoring of hyponatremia. Exam Vital Signs (past 8 hours): - 11/11/23 05:00 11/11/23 05:00 11/11/23 08:00 Temperature 98.5 F Pulse Rate 71 Respiratory Rate 16 Blood Pressure 160/63 H Pulse Oximetry 97 97 Oxygen Delivery Method Room Air Room Air Oxygen Flow Rate 0 0 11/11/23 09:00 11/11/23 11:30 Temperature 98.1 F Pulse Rate 71 Respiratory Rate 17 Blood Pressure 104/53 L Pulse Oximetry 96 Oxygen Delivery Method Room Air Oxygen Flow Rate 0 Fraction of Inspired Oxygen 21 SaO2/FiO2 Ratio 476 Oxygen Delivery Method Room Air Oxygen Flow Rate 0 Narrative Exam Narrative: General:? Patient is well developed and well nourished, in no distress at this time. HEENT:? Normocephalic, atraumatic, extraocular muscles intact, oral pharynx is clear and mucous membranes are moist. Neck: supple and symmetric, trachea is midline, no cervical adenopathy. Negative for JVD Chest:? Normal AP diameter and contour without kyphoscoliosis, no tachypnea, equal chest rise bilaterally. Lungs:? CTA b/l no wheezing rhonchi or rales. Cardio:?RRR no m/r/g. Abdomen: S NT ND. No CVA tenderness. Musculoskeletal:? Muscle strength and tone are equal within normal limits, no deformity. No midline tenderness or paraspinal tenderness today. Extremities: No edema or joint effusions. No cyanosis or clubbing. Skin:? Pale,? Warm to touch,dry and intact without rashes, ulcerations or petechiae.? Neuro:? Alert and orientated x3,? sensation to touch intact in all extremities, no gross deficits noted of cranial nerves. Psych:? Patient has a well-kept appearance, appropriate affect, mental status attitude thought context and judgment are appropriate for age. Objective Labs 11/09/23 05:30 11/11/23 05:00 Labs: Laboratory Results - last 24 hr 11/10/23 11/10/23 11/10/23 14:15 17:15 21:25 Sodium 123 L 124 L 123 L Potassium Chloride Carbon Dioxide BUN Creatinine Estimated GFR BUN/Creatinine Ratio Glucose Calcium Magnesium 11/11/23 05:00 Sodium 123 L Potassium 4.5 Chloride 95 L Carbon Dioxide 26 BUN 14 Creatinine 0.80 Estimated GFR > 60 BUN/Creatinine Ratio 17.5 Glucose 92 Calcium 9.1 Magnesium 1.7 [facility] Medical History Essential hypertension Bilateral leg edema Asthma Nasal congestion CKD (chronic kidney disease) Family History Father Hyperlipidemia Social History household members: spouse Smoking Status: Former smoker Tobacco: How many years used: 30 second hand exposure: Yes (my smokes a pipe once a day.) alcohol intake: former substance use type: marijuana (1 puff once every 6 weeks.) Discharge Plan Discharge Plan Patient Disposition: Home Health Service Provider Discharge Comment: You were admitted for weakness, back pain and found to have low salt levels. This improved with salt tablets so you will continue these at home. I've also stopped one of your blood pressure medications, because this can cause low sodium. I've sent pain meds, muscle relaxers and lidocaine patches for your back pain. Discharge orders & Medications Prescriptions: New sodium chloride 1,000 mg Tablet,Soluble 1,000 mg PO BIDWM Qty: 60 0RF methocarbamol 500 mg Tablet 500 mg PO QID PRN (Reason: Muscle Spasm) Qty: 30 0RF tramadol 50 mg Tablet 50 mg PO Q8HR PRN (Reason: Pain, Moderate (4-6)) Qty: 20 0RF lidocaine 5 % Adhesive Patch,Medicated 1 patch topical DAILY Qty: 30 0RF Continued cholecalciferol (vitamin D3) 1,000 unit capsule 1,000 unit PO DAILY fluticasone propionate 50 mcg/actuation spray,suspension 1 spray intranasal BID PRN (Reason: nasal congestion) Qty: 16 0RF Rx Instructions: administer into each nostril montelukast [Singulair] 10 mg tablet 10 mg PO DAILY Qty: 90 0RF carvedilol 3.125 mg tablet 3.125 mg PO BID Qty: 180 1RF budesonide-formoterol [Symbicort] 80-4.5 mcg/actuation HFA aerosol inhaler 1 inh inhalation BID Qty: 10.2 3RF multivitamin Tablet 1 tab PO DAILY albuterol sulfate 90 mcg/actuation HFA aerosol inhaler 2 puff INHALATION Q4-6H PRN (Reason: shortness of breath) Qty: 36 12RF Rx Instructions: administer with spacer magnesium oxide 500 mg capsule 500 mg PO BID PRN (Reason: constipation) Qty: 90 0RF ascorbic acid (vitamin C) Granules 1 g PO Q6H MDD 9g PRN (Reason: constipation) Qty: 113 0RF docusate sodium [DulcoEase] 100 mg capsule 100 mg PO DAILY PRN (Reason: constipation) Qty: 30 0RF levothyroxine 25 mcg tablet 25 mcg PO DAILY Qty: 90 1RF Rx Instructions: after 6 weeks if no significant improvement can double. Discontinued atenolol-chlorthalidone 100-25 mg tablet 1 tab PO QDAY Qty: 90 1RF Follow up/Referrals: Reva Hanna DO [Primary Care Provider] - 2 Weeks Visit Report/Discharge Packet Stand Alone Forms: Patient Portal/API, Stroke Signs & Symptoms Discharge Data Primary Care Provider: Reva Hanna Quality VTE Deep Vein Thrombosis/Pulmonary Embolism Present on Admission: No
--- NOTE | 2023-11-11 12:40 | CM.DPC ---
DCP Cont. Reviewed EMR and team rounds for status updates. Pt's sodium has improved during this admission, and has been medically cleared for d/c. Family will transport home, no further DCP needs indicated at this time.
== END 2023-11-11 15:57 | disposition home health service (06) | DRG 645 ==
LOC: ED 13:10 → AC 17:26 → ICU 11-09 15:31
PROVIDERS: Student in an Organized Health Care Education/Training Program; Admitting Provider Internal Medicine; Emergency Provider Physician Assistant Medical; PCP Family Medicine; Referring Provider Physician Assistant Medical; Visit Provider Internal Medicine
DX: E22.2 Syndrome of inappropriate secretion of antidiuretic hormone (principal); J45.909 Unspecified asthma, uncomplicated; E87.6 Hypokalemia; I10 Essential (primary) hypertension; M54.9 Dorsalgia, unspecified; Z87.891 Personal history of nicotine dependence
CPT/HCPCS: 36415; 36592; 74176; 80048; 80053; 81001; 83735; 84295; 84300; 84443; 85025; 94640; 94760; 96365; 96366; 97116; 97161; 97165; 97530; 99284; J1642; J1650; J1940; J2765; J3475

== ENCOUNTER → 2024-01-04 14:03 | Outpatient (CLI) | payer MEDICARE, OTHER, SELFPAY ==
[2024-01-04 15:04] LABS: Hematocrit 38.4 % (36-46); Mean Corpuscular HGB Conc 33.8 % (30-36); Mean Corpuscular Hemoglobin 29.9 PG (26-34); Mean Corpuscular Volume 88.3 fL (80-100); Platelet Count 259 X10^3/uL (150-400); Red Blood Cell Count 4.35 X10^6/uL (4.0-5.2); Red Cell Distribution Width 13.9 % (11.6-14.8); White Blood Cell Count 8.5 X10^3/uL (4.5-11.0)
[2024-01-04 15:29] LABS: Blood Urea Nitrogen 26 mg/dL (7-17); Calcium 10.2 mg/dL (8.4-10.2); Carbon Dioxide 30 mmol/L (22-32); Chloride 97 mmol/L (98-107); Estimated Glomerular Filt Rate 58 mL/min (>60); Glucose 98 mg/dL (80-110); HEMOLYSIS < 15 (0-50); Potassium 4.9 mmol/L (3.4-5.1); Sodium 132 mmol/L (137-145)
[2024-01-04 15:59] LABS: TSH w/ Reflex to FT4 0.77 uIU/mL (0.47-4.68)
== END ==
PROVIDERS: PCP Family Medicine; Referring Provider Family Medicine; Visit Provider Family Medicine
DX: I12.9 Hypertensive chronic kidney disease with stage 1 through stage 4 chronic kidney disease, or unspecified chronic kidney disease (principal); N18.9 Chronic kidney disease, unspecified; D64.9 Anemia, unspecified; J45.909 Unspecified asthma, uncomplicated; E03.9 Hypothyroidism, unspecified
CPT/HCPCS: 36415; 80048; 84443; 85027

== ENCOUNTER → 2024-06-07 12:34 | Outpatient (CLI) | payer MEDICARE, OTHER, SELFPAY ==
[2024-06-07 13:46] LABS: BUN Creatinine Ratio 18.2 (6-22); Blood Urea Nitrogen 18 mg/dL (7-17); Calcium 9.6 mg/dL (8.4-10.2); Carbon Dioxide 23 mmol/L (22-32); Chloride 98 mmol/L (98-107); Estimated Glomerular Filt Rate 58 mL/min (>60); Glucose 94 mg/dL (80-110); HEMOLYSIS < 15 (0-50); Sodium 128 mmol/L (137-145)
[2024-06-07 14:18] LABS: TSH w/ Reflex to FT4 0.92 uIU/mL (0.47-4.68)
== END ==
PROVIDERS: PCP Family Medicine; Referring Provider Family Medicine; Visit Provider Family Medicine
DX: E87.1 Hypo-osmolality and hyponatremia (principal); I10 Essential (primary) hypertension; E03.8 Other specified hypothyroidism
CPT/HCPCS: 36415; 80048; 84443

== ENCOUNTER 2024-09-12 10:27 | Emergency (ER) | payer MEDICARE, OTHER, SELFPAY ==
[2024-09-12] VITALS (19 sets, daily range): BP systolic 149–206; BP diastolic 59–125; PULSE 63–87; RESP 16–25; TEMP 36.4–36.9; O2SAT 97–100; BMI 22.8
--- NOTE | 2024-09-12 11:16 | ED.NEUROSD ---
HPI - Neuro Symptoms/Deficit General Chief Complaint: Neuro Symptoms/Deficit Stated Complaint: L arm pain/nerve issues x 2-3 days Time Seen by Provider: 09/12/24 11:16 Source: patient, RN notes reviewed and old records reviewed Mode of arrival: EMS Limitations: no limitations History of Present Illness HPI Narrative: 79-year-old female history of asthma, hypertension, hyponatremia, hypothyroidism who presents with complaint of left hand weakness since Thursday. Patient states she did have little bit discomfort in her back of her shoulder. Patient states that she does not have any pain currently but she has been having cramping in the hand she denies any numbness or loss of sensation. Denies any weakness of her other extremities no facial droop no difficulty with speech. No headaches. No chest pain. Some mild shortness of breath but states that she has asthma and that has not atypical. No nausea or vomiting. No other GI or urinary symptoms. Patient states she noticed it Thursday when she went to sign a credit card receipt and was unable to she is left-hand dominant has not been able to use it well since then does not feel that is symptoms are progressing but states they have not resolved. She states she has sensation throughout. She states it does get cramps and sort of tight. She was has a little bit of discomfort into her left shoulder and states she had some pain in her left shoulder on Thursday but denies any active pain right now. Patient is not on any anticoagulants states she takes carvedilol, Synthroid, albuterol PRN for asthma, to salt tablets daily and Symbicort. Patient states she has had prior cholecystectomy knee surgery remotely. Allergic to penicillin and hydrocodone makes her nauseated and vomit. No tobacco, alcohol or recreational drugs. Dr. Hanna is her primary care physician. She was accompanied by her family. On Anticoagulants: No Related Data Home Medications Medication Instructions Recorded Confirmed cholecalciferol (vitamin D3) 25 1,000 unit PO DAILY 03/22/18 09/12/24 mcg (1,000 unit) capsule multivitamin 1 tab PO DAILY 04/03/22 09/12/24 B Complex-Vitamin B12 1 tab PO DAILY 09/12/24 09/12/24 budesonide-formoterol HFA 160 1 puff inhalation BID 09/12/24 09/12/24 mcg-4.5 mcg/actuation aerosol inhaler (Breyna) carvedilol 6.25 mg tablet 6.25 mg PO BID 09/12/24 09/12/24 fluticasone propionate 50 1 spray intranasal BID PRN 09/12/24 09/12/24 mcg/actuation nasal congestion spray,suspension levothyroxine 25 mcg tablet 25 mcg PO DAILY 09/12/24 09/12/24 montelukast 10 mg tablet 10 mg PO DAILY 09/12/24 09/12/24 sodium chloride 1 gram tablet 1,000 mg PO BID 09/12/24 09/12/24 Previous Rx's Medication Instructions Recorded magnesium oxide 500 mg capsule 500 mg PO BID PRN constipation #90 05/30/22 caps albuterol sulfate 90 mcg/actuation 2 puff inhalation Q4-6H PRN 03/02/24 aerosol inhaler shortness of breath #36 grams Allergies Allergy/AdvReac Type Severity Reaction Status Date / Time Penicillins [PENICILLINS] Allergy Severe ANAPHYLACTIC Verified 06/10/24 14:08 SHOCK latex [LATEX] Allergy Intermediate RASH Verified 06/10/24 14:08 codeine [CODEINE] AdvReac Severe FALSE Verified 06/10/24 14:08 HEART ATTACK SYMPTOMS hydrocodone AdvReac Severe made me Verified 06/10/24 14:08 violently ill and did nothing for the pain Review of Systems Review of Systems ROS Unobtainable: All systems reviewed & are unremarkable except as noted in HPI and below Hematologic/Lymphatic On Anticoagulants: No Patient History Medical History Essential hypertension Bilateral leg edema Asthma Nasal congestion CKD (chronic kidney disease) Family History Father Hyperlipidemia Social History household members: spouse Smoking Status: Former smoker Tobacco: How many years used: 30 second hand exposure: Yes (my smokes a pipe once a day.) alcohol intake: never substance use type: marijuana (1 puff once every 6 weeks.) Smoking Status: Former smoker tobacco type: cigarettes alcohol intake frequency: 0-2 drinks per day Exam Narrative Exam Narrative: GEN: well nourished, well appearing female, alert and oriented x [default value], patient appears to be in mild distress. HEENT: Atraumatic, pupils are equal round reactive to light, extraocular movements are intact, nares are clear, TMs are clear with no fluid, there is no conjunctival pallor. Throat is clear without any exudates, erythema, tonsillar enlargement or uvular deviation HEART: Regular rate and rhythm without murmur, clicks, rubs. Pulses are equal in upper and lower extremities LUNGS:Lungs clear to auscultation, no wheezes, rales, crackles, chest moves symmetrically ABD:bowel sounds normal, soft, non-tender, no guarding, rebound, rigidity, no masses noted, no hepatosplenomegaly :No CVA tenderness MSCL: Non-tender, no muscle atrophy, muscles strength 5/5 upper and lower extremities, patient has good flexion-extension at her left wrist but is weaker, she has decreased fine motor of all 5 fingers she does have some range of motion she was not completely flaccid but has difficulty with control. Patient does have sensation throughout all 5 fingers and her hand as well as bilateral upper and lower extremities. Muscle strength appears equal with flexion-extension of the elbows and shoulders. No drift on exam. NEURO:CN 2-12 intact, sensation normal, Heel-miller is normal, finger-nose is normal in the right. Normal sensation throughout. SKIN: No rash, erythema or other skin changes noted. Initial Vital Signs Initial Vital Signs: Vital Signs Pulse Rate 74 09/12/24 10:32 Blood Pressure 183/84 H 09/12/24 10:32 Pulse Oximetry 100 09/12/24 10:32 Scores NIH Stroke Scale Level of Conciousness: Alert, keenly responsive Ask month/age: Answers both questions correctly. Open/close eyes, close hand: Performs both tasks correctly Best gaze horizontal: Normal Visual starr: No visual loss Facial palsy: Normal symetrical movement Left arm drift: No drift for full 10 sec Right arm drift: No drift for full 10 sec Left leg drift: No drift for full 5 sec Right leg drift: No drift for full 5 sec Limb ataxia: Absent Sensory on face/arms/legs: Normal, no sensory loss Best language: No aphasia, normal Dysarthria: Normal Extinction or inattention: No abnormality Total NIH Stroke scale score: 0 Course Orders Ordered: ED Orders 09/12/24 11:39 CT angio head and neck Stat CT head/brain wo con Stat EKG-12 Lead Stat 09/12/24 12:11 Urine Drug Screen, Rapid Stat 09/12/24 12:36 Complete Blood Count AUTO DIFF Stat Comprehensive Metabolic Panel Stat Ethanol (ETOH) Stat PTT Partial Thromboplastin [place] Stat Prothrombin Time INR Stat Troponin & CK Cardiac Panel Stat Discontinued Medications Albuterol (Albuterol 2.5 Mg/3 Ml Neb (Adult)) 2.5 mg INH NOW ONE Stop: 09/12/24 11:40 Last Admin: 09/12/24 12:05 Dose: 2.5 mg Documented By: LAINEY Aspirin (Aspirin 81 Mg Chew Tab) 324 mg PO NOW ONE Stop: 09/12/24 14:29 Last Admin: 09/12/24 14:39 Dose: 324 mg Documented By: LAINEY Clopidogrel Bisulfate (Clopidogrel 75 Mg Tablet) 300 mg PO NOW ONE Stop: 09/12/24 17:42 Last Admin: 09/12/24 19:00 Dose: 300 mg Documented By: CADENCE Vital Signs Vital signs: Vital Signs - 8 hr 09/12/24 11:30 09/12/24 11:30 09/12/24 11:57 Pulse Rate 71 Respiratory Rate Blood Pressure 206/125 H 179/74 H Pulse Oximetry 100 Oxygen Delivery Method 09/12/24 11:57 09/12/24 12:05 09/12/24 12:06 Pulse Rate 69 75 Respiratory Rate Blood Pressure 203/88 H Pulse Oximetry 99 Oxygen Delivery Method 09/12/24 12:06 09/12/24 12:30 09/12/24 12:35 Pulse Rate 75 65 Respiratory Rate 18 Blood Pressure 179/77 H Pulse Oximetry 99 99 Oxygen Delivery Method 09/12/24 12:35 09/12/24 13:00 09/12/24 14:00 Pulse Rate 64 68 64 Respiratory Rate 24 20 25 H Blood Pressure Pulse Oximetry 100 100 100 Oxygen Delivery Method 09/12/24 14:04 09/12/24 14:04 09/12/24 14:30 Pulse Rate 66 63 Respiratory Rate 22 25 H Blood Pressure 187/78 H Pulse Oximetry 99 100 Oxygen Delivery Method 09/12/24 15:00 09/12/24 15:23 09/12/24 15:23 Pulse Rate 68 69 Respiratory Rate 24 Blood Pressure 187/84 H Pulse Oximetry 99 98 Oxygen Delivery Method 09/12/24 15:30 09/12/24 15:30 09/12/24 16:00 Pulse Rate 64 Respiratory Rate 17 Blood Pressure 172/59 H 180/74 H Pulse Oximetry 99 Oxygen Delivery Method 09/12/24 16:00 Pulse Rate 67 Respiratory Rate 21 Blood Pressure Pulse Oximetry 100 Oxygen Delivery Method Room Air MDM - Neuro Symptoms/Deficit Lab Data 09/12/24 12:36 09/12/24 12:36 Labs: Lab Results 09/12/24 09/12/24 Range/Units 12:11 12:36 WBC 7.9 (4.5-11.0) X10^3/uL RBC 4.36 (4.0-5.2) X10^6/uL Hgb 12.9 (12.0-16.0) g/dL Hct 38.8 (36-46) % MCV 89.0 (80-100) fL MCH 29.6 (26-34) PG MCHC 33.3 (30-36) % RDW 13.3 (11.6-14.8) % Plt Count 173 (150-400) X10^3/uL Neut % (Auto) 64.6 (50-75) % Lymph % (Auto) 22.9 L (25-40) % [place] % (Auto) 6.9 (3-14) % Eos % (Auto) 4.9 H (2-4) % Baso % (Auto) 0.7 (0-2) % Neut # (Auto) 5100 (6722-1671) /uL Lymph # (Auto) 1800 (7227-4882) /uL [place] # (Auto) 500 (0-900) /uL Eos # (Auto) 400 (0-450) /uL Baso # (Auto) 100 (0-100) /uL PT 11.0 (9.4-12.5) SECONDS INR 1.0 (0.9-1.3) APTT 24 L (25.1-36.5) SECONDS Sodium 133 L (137-145) mmol/L Potassium 4.2 (3.4-5.1) mmol/L Chloride 104 (98-107) mmol/L Carbon Dioxide 22 (22-32) mmol/L BUN 20 H (7-17) mg/dL Creatinine 0.90 (0.52-1.04) mg/dL Estimated GFR > 60 (>60) mL/min BUN/Creatinine Ratio 22.2 H (6-22) Glucose 103 (80-110) mg/dL Calcium 9.3 (8.4-10.2) mg/dL Total Bilirubin 0.6 (0.2-1.3) mg/dL AST 29 (14-36) IU/L ALT 19 (<35) IU/L Alkaline Phosphatase 102 (38-126) U/L Total Creatine Kinase 108 (30-135) U/L Troponin I < 0.012 (0.01-0.034) ng/mL Total Protein 6.4 (6.3-8.2) g/dL Albumin 3.6 (3.5-5.0) g/dL Globulin 2.8 (1.7-4.1) g/dL Albumin/Globulin Ratio 1.3 (1.0-2.8) U Opiates 300ng/mL cut Negative (Negative) Ur Oxycodone Screen Negative (Negative) Urine Methadone Screen Negative (Negative) Ur Barbiturates Screen Negative (Negative) U Tricyclic Antidepress Negative (Negative) Ur Phencyclidine Scrn Negative (Negative) Ur Amphetamines Screen Negative (Negative) U Methamphetamines Scrn Negative (Negative) Ur MDMA Scrn (Ecstasy) Negative (Negative) U Benzodiazepines Scrn Negative (Negative) Urine Cocaine Screen Negative (Negative) U Marijuana (THC) Screen Positive H (Negative) Urine pH Normal (Normal) Urine Specific [place] Normal (Normal) Ethyl Alcohol < 10 ( - 10) mg/dL Ur Creatinine Normal (Normal) Point of Care Testing Glucose POC 190 Urine Dip Bedside Urine Glucose Negative Bedside Urine Bilirubin - Negative Bedside Urine Ketone - Negative Urine Specific [place] 1.010 Bedside Urine Occult Blood - Negative Bedside Urine pH 7.5 Bedside Urine Protein - Negative Bedside Urine Urobilinogen - Negative Bedside Urine Nitrite - Negative Bedside Urine Leukocytes - Negative Esterase ECG Data Attestation: I personally reviewed and interpreted this ECG as follows: Interpretation: Sinus rhythm left anterior fascicular block rate of 66 DE 182 QRS of 90 QTC of 415. MDM Narrative Medical decision making narrative: 79-year-old female with complaint of left hand weakness since Thursday, 3 days ago. Patient does note she has a history of hyponatremia has had some atypical symptoms with this in the past she does also note some cramping in her hand and getting tight. She had some pain Bear but states little bit of discomfort in the shoulder but really no pain so possibly for nerve impingement but stroke is on differential as well. Patient was hypertensive here today has had some improvement. Labs show normal CBC, INR 0.6 sodium is 133 BUN 20 electrolytes are otherwise appropriate glucose is 103 LFTs are negative troponin is less than 0.012.. ETOH less than [address] shows no acute change CT angio head and neck shows no large vessel occlusion significant atherosclerotic calcifications greater than 90% ICA of the right proximal ICA with less than 50% stenosis of left proximal moderate stenosis origin of left vertebral artery focal coarse calcification right proximal subclavian with a 50% stenosis. Patient is outside of window for intervention but suspect potential localized CVA and has 90% calcifications of the right proximal ICA. NIH is technically 0 but patient has clear weakness in significant decreased use of her dominant left hand. Do not have MRI capability currently. Images pushed to tele stroke at [facility] [place] patient is far outside of window for tPA or even a code IR. [address] Stephanie Coronel, we will review images and re-contact with plan. Discussed do not have MRI capability currently to confirm suspected stroke diagnosis. Reviewed imaging and recommendations for asa and plavix 75mg daily x 21 days. Would like workup and follow up with vascular in 2 weeks. MR brain, ECHO, lipids, risk factors. 1430 Dr. Blanca, hospitalist we will review with the case management maybe observation and not inpatient. Waiting re-contact. Discussed with patient and family at bedside awaiting ot here back from hospitalist and case management but reviewed findings from today and recommendation from Neurology to follow up with the in the next 2 weeks with vascular. Called back to coordinator and updated care management plan. They state they would like me to chat with vascular surgery. They were paged out. I did not speak with vascular but Dr. Coronel called back and had spoken with them. [address] Coronel who called back, she spoke with vascular. May need intervention for carotid in next 24-48 hours. Goal for transfer tonight patient was accepted at [facility] Emergency Department transfer ED to ED under Dr. Coronel. 325mg aspiring and she asked that we add 300mg plavix today at this time, and then asa 81mg and plavix 75mg. Continue with current treatment hypertension patient's blood pressure has been 170s to 180s symptoms has been stable. 1754 patient updated she was agreeable for transfer. I did go and speak with the patient myself. Patient has been moved upstairs but has not been seen by the hospitalist. Plan for transport via ALS. Stroke Core Measures Exclusion Criteria TPA in CVA: Symptom Onset >3 or 4.5 Hours Discharge Plan Departure Patient Disposition: Admitted As Inpatient Clinical Impression: CVA (cerebral vascular accident), Left hand weakness Admit Date/Time: 09/12/24 16:05 Admit Provider: Chapo Blanca
--- NOTE | 2024-09-12 11:39 | DI.CT.S_ITS ---
PROCEDURE: CT ANGIO HEAD AND NECK INDICATIONS: left hand weakness since carolann/cramping TECHNIQUE: After the administration of intravenous contrast, 1 mm thick sections acquired from the aortic arch through the [place] of [place]. 3-dimensional lemxsef-kzgrmmzrl-hsmwttxyhk (MIP) and/or volume rendering reformats were acquired of the central intracranial vasculature and neck separately. For radiation dose reduction, the following was used: automated exposure control, adjustment of mA and/or kV according to patient size. COMPARISON: None. FINDINGS: Image quality: Diagnostic. BRAIN: Please refer to same day CT of the head. HEAD CT ANGIOGRAPHY: Anterior circulation: Intracranial internal carotid arteries demonstrate significant atherosclerotic calcifications with areas of up to moderate stenosis. The flow within the paired anterior cerebral arteries is normal and symmetric. The flow within the middle cerebral arteries is normal and symmetric. The anterior communicating artery is seen. No aneurysms are seen. Posterior circulation: Visualized portions of the vertebral arteries demonstrate normal caliber, and join to form a normal appearing basilar artery. Flow within the posterior cerebral arteries is normal and symmetric. No aneurysms are seen. NECK CT ANGIOGRAPHY: Carotid system: The great vessels demonstrate a conventional anatomy as they arise from the aortic arch with atherosclerotic calcifications. Focal coarse calcifications of the proximal right subclavian artery with approximately 50% stenosis. The origins of the common carotid arteries appear patent. The common carotid arteries demonstrate normal caliber and courses. The bifurcation regions demonstrate coarse calcifications. There is high-grade stenosis of the proximal right ICA, greater than 90%. Mild stenosis of the left proximal ICA, less than 50%. Posterior circulation: Moderate stenosis of the left vertebral origin. The more superior extracranial portions of both vertebral arteries also demonstrate normal courses and calibers. They join to form a normal appearing basilar artery. Soft tissues: Visualized neck soft tissues demonstrate no suspicious abnormalities. Bones: No suspicious bony lesions. Multilevel degenerative changes of the cervical spine. Visualized cervical spine appears normally aligned. IMPRESSION: No large vessel occlusion. Significant atherosclerotic calcifications of the intracranial internal carotid arteries with areas of up to moderate stenosis. Greater than 90% stenosis of the right proximal ICA. Less than 50% stenosis of the left proximal ICA. Moderate stenosis at the origin of left vertebral artery. Focal coarse calcification of the right proximal subclavian with approximately 50% stenosis. Any quantitative measurements of stenosis were performed using NASCET criteria. Dictated by: Michael Montero M.D. on 09/12/2024 at 12:45 Approved by: Michael Montero M.D. on 09/12/2024 at 12:53
--- NOTE | 2024-09-12 11:39 | EKG_ITS ---
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
--- NOTE | 2024-09-12 11:39 | DI.CT.S_ITS ---
PROCEDURE: CT HEAD/BRAIN WO CON INDICATIONS: L hand weakness since thursday, cramping TECHNIQUE: Noncontrast 4.5 mm thick angled axial sections acquired from the foramen magnum to the vertex, with coronal and sagittal reformats. For radiation dose reduction, the following was used: automated exposure control, adjustment of mA and/or kV according to patient size. COMPARISON: None. FINDINGS: Image quality: Diagnostic. CSF spaces: Basal cisterns are patent. No extra-axial fluid collections. The ventricles are symmetric in size and shape. Brain: No intracranial bleeds or masses. There is cerebral volume loss for age, with resultant ventricular and sulcal prominence. There are periventricular and deep white matter chronic small vessel ischemic changes. There is intracranial internal carotid artery atherosclerosis. Skull and face: Calvarium and visualized facial bones appear intact, without suspicious lesions. Sinuses: Scattered paranasal sinus disease with air-fluid levels. The mastoids are opacified. IMPRESSION: No acute intracranial pathology. Dictated by: Michael Montero M.D. on 09/12/2024 at 12:06 Approved by: Michael Montero M.D. on 09/12/2024 at 12:08
[2024-09-12] MEDS: ALBUTEROL 2.5 MG/3 ML NEB (ADULT) INH (12:05)
[2024-09-12 12:38] LABS: Add Manual Diff / Slide Review NO; Basophils Absolute Auto 100 /uL (0-100); Basophils Percent Auto 0.7 % (0-2); Eosinophils Absolute Auto 400 /uL (0-450); Eosinophils Percent Auto 4.9 % (2-4); Hematocrit 38.8 % (36-46); Hemoglobin 12.9 g/dL (12.0-16.0); Lymphocytes Absolute Auto 1800 /uL (1100-4500); Lymphocytes Percent Auto 22.9 % (25-40); Mean Corpuscular HGB Conc 33.3 % (30-36); Mean Corpuscular Hemoglobin 29.6 PG (26-34); Monocytes Absolute Auto 500 /uL (0-900); Monocytes Percent Auto 6.9 % (3-14); Neutrophils Absolute Auto 5100 /uL (1500-7000); Neutrophils Percent Auto 64.6 % (50-75); Platelet Count 173 X10^3/uL (150-400); Red Blood Cell Count 4.36 X10^6/uL (4.0-5.2); Red Cell Distribution Width 13.3 % (11.6-14.8); White Blood Cell Count 7.9 X10^3/uL (4.5-11.0)
[2024-09-12 12:40] LABS: Ur Creatinine Normal (Normal); Ur Specific Gravity Normal (Normal); Urine Amphetamines Negative (Negative); Urine Barbiturates Negative (Negative); Urine Benzodiazepines Negative (Negative); Urine Cocaine Negative (Negative); Urine MDMA Negative (Negative); Urine Methadone Negative (Negative); Urine Methamphetamines Negative (Negative); Urine Opiates Negative (Negative); Urine Oxycodone Negative (Negative); Urine Phencyclidine Negative (Negative); Urine THC Positive (Negative); Urine Tricyclic Antidepressant Negative (Negative); Urine pH Normal (Normal)
[2024-09-12 12:51] LABS: PTT Partial Thromboplastin Tim 24 SECONDS (25.1-36.5)
[2024-09-12 13:01] LABS: Alanine Aminotransferase 19 IU/L (<35); Albumin 3.6 g/dL (3.5-5.0); Albumin Globulin Ratio 1.3 (1.0-2.8); Alkaline Phosphatase 102 U/L (38-126); Aspartate Aminotransferase 29 IU/L (14-36); BUN Creatinine Ratio 22.2 (6-22); Bilirubin Total 0.6 mg/dL (0.2-1.3); Blood Urea Nitrogen 20 mg/dL (7-17); Calcium 9.3 mg/dL (8.4-10.2); Carbon Dioxide 22 mmol/L (22-32); Chloride 104 mmol/L (98-107); Creatine Kinase 108 U/L (30-135); Estimated Glomerular Filt Rate > 60 mL/min (>60); Ethanol (ETOH) < 10 mg/dL; Globulin 2.8 g/dL (1.7-4.1); Glucose 103 mg/dL (80-110); HEMOLYSIS < 15 (0-50); Potassium 4.2 mmol/L (3.4-5.1); Sodium 133 mmol/L (137-145); Total Protein 6.4 g/dL (6.3-8.2)
[2024-09-12 13:12] LABS: Troponin I < 0.012 ng/mL (0.01-0.034)
[2024-09-12] MEDS: ASPIRIN 81 MG CHEW TAB 324 MG PO (14:39)
[2024-09-12] MEDS: CLOPIDOGREL 75 MG TABLET 300 MG PO (19:00)
--- NOTE | 2024-09-12 19:20 | PM.CALLCOV.1 ---
Call Coverage Note Note Narrative of Care Provided: Patient was accepted for admission after intitial evaluation in the ER, however updated recommendations from tele-stroke after acceptance are for ER to ER transfer for carotid stenosis evaluation per ER provider. Pending transfer, will assist with management as needed. ER provider coordinating transfer.
--- NOTE | 2024-09-12 20:36 | PC.NURSE ---
Addendum entered by Antoinette Vail R.N. 09/12/24 21:27: correction: transport team transferred patient down @ [phone] Original Note: report given to transport team. VSS. patient is AxOx4, aware of plan of care. no further questions or concerns at this time. belongings packed. transport team transferred patient down @ [phone].
== END 2024-09-12 16:50 | disposition short-term general hospital (02) ==
LOC: ED 11:16 → AC 16:10
PROVIDERS: Emergency Provider Emergency Medicine; PCP Family Medicine; Visit Provider Internal Medicine
DX: I63.9 Cerebral infarction, unspecified (principal); R53.1 Weakness; R29.700 NIHSS score 0; J45.909 Unspecified asthma, uncomplicated; I10 Essential (primary) hypertension; Z87.891 Personal history of nicotine dependence
CPT/HCPCS: 36415; 70450; 70496; 70498; 80053; 80305; 80320; 81003; 82550; 82962; 84484; 85025; 85610; 85730; 93005; 93010; 99284; 99285; J7613; Q9967

== ENCOUNTER 2025-05-17 13:00 | Inpatient (IN) | payer MEDICARE, OTHER, SELFPAY ==
[2025-04-11 14:32] VITALS: BMI 22.8
[2025-05-17] VITALS (9 sets, daily range): BP systolic 108–133; BP diastolic 53–62; PULSE 71–90; RESP 15–21; TEMP 36.4–36.6; O2SAT 93–99; BMI 21.2; BMI 22.1
--- NOTE | 2025-05-17 13:42 | DI.RAD.S_ITS ---
PROCEDURE: XR CHEST 1V INDICATIONS: Chest Pain TECHNIQUE: One view of the chest was acquired. COMPARISON: None. FINDINGS: Surgical changes and devices: None. Lungs and pleura: Lungs are clear. No pleural effusions or pneumothorax. Mediastinum: Mediastinal contours appear normal. Heart size is normal. Bones and chest wall: No suspicious bony lesions. Overlying soft tissues appear unremarkable. IMPRESSION: No acute cardiopulmonary abnormality is seen. Dictated by: Mau Avila M.D. on 05/17/2025 at 15:11 Approved by: Mau Avila M.D. on 05/17/2025 at 15:12
--- NOTE | 2025-05-17 14:22 | EKG_ITS ---
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
--- NOTE | 2025-05-17 14:22 | DI.CT.S_ITS ---
PROCEDURE: CT HEAD/BRAIN WO CON INDICATIONS: fall, head injury TECHNIQUE: Noncontrast 4.5 mm thick angled axial sections acquired from the foramen magnum to the vertex, with coronal and sagittal reformats. For radiation dose reduction, the following was used: automated exposure control, adjustment of mA and/or kV according to patient size. COMPARISON: [facility], CT, CT HEAD/BRAIN WO CON, 09/12/2024, 11:48. FINDINGS: Image quality: Diagnostic. CSF spaces: Basal cisterns are patent. No extra-axial fluid collections. The ventricles are symmetric in size and shape. Brain: No intracranial bleeds or mass effect. There is cerebral volume loss, with resultant ventricular and sulcal prominence. There are periventricular and deep white matter chronic small vessel ischemic changes. There is intracranial internal carotid artery atherosclerosis. Skull and face: Calvarium and visualized facial bones appear intact, without suspicious lesions. Sinuses: Mucosal thickening in bilateral ethmoid sinuses and left maxillary sinus is seen. Bilateral mastoid air cells are fairly well aerated. IMPRESSION: 1. No acute intracranial pathology. 2. Age related volume loss and mild white matter chronic small vessel ischemic changes. 3. Mild left maxillary and bilateral ethmoid sinusitis. Dictated by: Cam Peralta M.D. on 05/17/2025 at 15:24 Approved by: Cam Peralta M.D. on 05/17/2025 at 15:25
--- NOTE | 2025-05-17 14:22 | DI.CT.S_ITS ---
PROCEDURE: CT ANGIO ABD/PEL GI BLEED INDICATIONS: abdominal pain TECHNIQUE: After the administration of intravenous contrast, 2.5 mm sections acquired from the diaphragm to the iliac crests. 10 mm maximum intensity projection (MIP) coronal and sagittal reformats were then performed. For radiation dose reduction, the following was used: automated exposure control. COMPARISON: None. FINDINGS: Image quality: Diagnostic. Abdominal aorta: No aortic aneurysm or evidence of acute aortic syndrome. [id number] atherosclerotic calcifications are noted in infrarenal abdominal aorta with less than 50% stenosis. Mesenteric arteries: Patent without hemodynamically significant stenosis. No area of active contrast extravasation. Renal arteries: Patent without hemodynamically significant stenosis. Lower chest: Unremarkable. ABDOMEN: Liver: No solid mass. Gallbladder: Gallbladder is surgically absent. Biliary ducts: No biliary dilation. Pancreas: No ductal dilation. Spleen: Size is within normal limits. Adrenal Glands: No adrenal nodules. Kidneys and Ureters: No hydronephrosis. No solid mass. No complex renal cystic lesion which requires follow up. Stomach and Bowel: There is no bowel obstruction. No gastric or small bowel wall thickening. No colonic wall thickening. Large amount of fecal matter throughout the colon is seen extending to the level of mid sigmoid colon. Suggestion of distal sigmoid colon wall thickening and mild pericolonic fat stranding best seen on series 3, image 177. No discrete drainable abscess collection. No other area of abnormal colonic wall thickening. Peritoneum: No abnormal intraperitoneal fluid. No free air. Ventral Wall: No hernia. Abdominal Nodes: No retroperitoneal or mesenteric adenopathy by size criteria. Vessels: Aorta, as above. Normal IVC. PELVIS: Pelvic Organs: Unremarkable. Bladder: Unremarkable. Pelvic Nodes: No enlarged lymph nodes. Miscellaneous: No inguinal hernias are seen. Bones: No aggressive osseous abnormality. IMPRESSION: 1. No abdominal aortic aneurysm or dissection. No hemodynamically significant stenosis or aneurysm is seen mesenteric arteries or renal arteries. Moderate atherosclerotic calcifications involving infrarenal abdominal aorta with up to 50% stenosis. 2. Narrowing of the lumen and wall thickening involving mid to distal sigmoid colon in lower abdomen/pelvis with pericolonic fat stranding concerning for acute diverticulitis versus sigmoid colitis. No abscess collection. No free fluid or free air. Significant constipation proximal to the site of inflammation. GI follow-up is recommended to rule out underlying neoplastic process. 3. Other chronic findings as above. Dictated by: Cam Peralta M.D. on 05/17/2025 at 15:27 Approved by: Cam Peralta M.D. on 05/17/2025 at 15:38
[2025-05-17 14:44] LABS: Add Manual Diff / Slide Review NO; Hematocrit 37.9 % (36-46); Hemoglobin 12.7 g/dL (12.0-16.0); Lymphocytes Absolute Auto 1100 /uL (1100-4500); Mean Corpuscular HGB Conc 33.6 % (30-36); Mean Corpuscular Hemoglobin 29.8 PG (26-34); Mean Corpuscular Volume 88.7 fL (80-100); Platelet Count 135 X10^3/uL (150-400)
[2025-05-17 14:54] LABS: Lactate (Lactic Acid) 1.2 mmol/L (0.7-2.1)
[2025-05-17 14:55] LABS: Alanine Aminotransferase 65 IU/L (<35); Albumin 4.0 g/dL (3.5-5.0); Albumin Globulin Ratio 1.3 (1.0-2.8); Alkaline Phosphatase 97 U/L (38-126); Blood Urea Nitrogen 27 mg/dL (7-17); Calcium 9.1 mg/dL (8.4-10.2); Carbon Dioxide 21 mmol/L (22-32); Chloride 100 mmol/L (98-107); Creatine Kinase 1362 U/L (30-135); Estimated Glomerular Filt Rate 37 mL/min (>60); Globulin 3.1 g/dL (1.7-4.1); Glucose 99 mg/dL (70-99); HEMOLYSIS < 15 (0-50); Lipase 147 U/L (23-300); Magnesium 2.1 mg/dL (1.6-2.3); Potassium 3.3 mmol/L (3.4-5.1); Sodium 134 mmol/L (137-145); Total Protein 7.1 g/dL (6.3-8.2)
[2025-05-17 15:07] LABS: Troponin I 0.017 ng/mL (0.01-0.034)
--- NOTE | 2025-05-17 18:22 | ED.ABDPAIN ---
HPI - Abdominal Pain General Chief Complaint: Abdominal Pain Stated Complaint: Stomach pain, nausea, bloody stools 3 days Time Seen by Provider: 05/17/25 17:48 Source: patient Mode of arrival: Ambulatory History of Present Illness HPI narrative: 80 year old female with history of remote cholecystectomy, no other prior abdominopelvic surgeries recalled, complains of 3 days duration left-sided abdominal pain, multiple episodes of nausea nonbloody emesis, last emesis earlier this morning, no black or red stools, no loose stools. No injury trauma or new activities. She takes aspirin but no other blood thinner medications. No recent antibiotic exposure. Related Data Home Medications ?Medication ?Instructions ?Recorded ?Confirmed cholecalciferol (vitamin D3) 25 1,000 unit PO DAILY 03/22/18 05/17/25 mcg (1,000 unit) capsule multivitamin 1 tab PO DAILY 04/03/22 05/17/25 B Complex-Vitamin B12 1 tab PO DAILY 09/12/24 05/17/25 sodium chloride 1 gram tablet 1,000 mg PO BID 09/12/24 05/17/25 Previous Rx's ?Medication ?Instructions ?Recorded magnesium oxide 500 mg capsule 500 mg PO BID PRN constipation #90 05/30/22 caps Breyna 160 mcg-4.5 mcg/actuation 1 puff inhalation BID #30.9 grams 04/11/25 HFA aerosol inhaler (budesonide-formoterol) amlodipine 5 mg tablet 5 mg PO DAILY #90 tabs 04/11/25 aspirin 81 mg capsule 81 mg PO DAILY #90 caps 04/11/25 carvedilol 6.25 mg tablet 6.25 mg PO BID #180 tabs 04/11/25 fluticasone propionate 50 1 spray intranasal BID PRN 04/11/25 mcg/actuation nasal congestion #16 grams spray,suspension levothyroxine 25 mcg tablet 25 mcg PO DAILY #80 tabs 04/11/25 montelukast 10 mg tablet 10 mg PO DAILY #90 tabs 04/11/25 rosuvastatin 40 mg tablet 40 mg PO DAILY #90 tabs 04/11/25 trazodone 50 mg tablet 25 mg (1/2 x 50 mg) PO ONCE PM PRN 04/11/25 for insomnia #30 tabs Allergies Allergy/AdvReac Type Severity Reaction Status Date / Time Penicillins (PENICILLINS) Allergy Severe ANAPHYLACTIC Verified 05/17/25 13:35 SHOCK latex (LATEX) Allergy Intermediate RASH Verified 05/17/25 13:35 codeine (CODEINE) AdvReac Severe FALSE Verified 05/17/25 13:35 HEART ATTACK SYMPTOMS hydrocodone AdvReac Severe made me Verified 05/17/25 13:35 violently ill and did nothing for the pain Patient History Medical History (Updated 05/17/25 @ 19:20 by Andres Fong MD) Acute hyponatremia Essential hypertension Bilateral leg edema Asthma Nasal congestion CKD (chronic kidney disease) Family History Father Hyperlipidemia Social History household members: spouse Smoking Status: Former smoker Tobacco: How many years used: 30 second hand exposure: Yes (my smokes a pipe once a day.) alcohol intake: never substance use type: marijuana tobacco type: cigarettes alcohol intake frequency: 0-2 drinks per day Exam Narrative Exam Narrative: GENERAL: Well-developed patient, in mild distress. HEAD: Atraumatic. Normocephalic. EYES: Pupils equal round and reactive. Extraocular motions intact. No scleral icterus. No injection or drainage. ENT: Nose without bleeding, purulent drainage. Throat without erythema, tonsillar hypertrophy or exudate. Airway patent. NECK: Trachea midline. Non tender CARDIOVASCULAR: Regular rate and rhythm without murmurs, gallops, or rubs. RESPIRATORY: Clear to auscultation. Breath sounds equal bilaterally. No wheezes, rales, or rhonchi. GASTROINTESTINAL: Tenderness left lower quadrant, no voluntary guarding, bowel tones unremarkable, nondistended. EXTREMITIES: No edema or joint tenderness. BACK: Nontender without deformity or crepitance. No flank tenderness. NEURO: AOx3. Motor functions grossly nonfocal. SKIN: No rash or erythema of visible areas Initial Vital Signs Initial Vital Signs: Vital Signs Temperature 98 F 05/17/25 13:34 Pulse Rate 90 05/17/25 13:34 Respiratory Rate 18 05/17/25 13:34 Blood Pressure 117/55 L 05/17/25 13:34 Pulse Oximetry 97 05/17/25 13:34 Oxygen Delivery Method Room Air 05/17/25 13:34 Course Orders Ordered: ED Orders 05/18/25 07:00 Basic Metabolic Panel DAILY Magnesium DAILY 05/19/25 07:00 Basic Metabolic Panel DAILY Magnesium DAILY 05/20/25 07:00 Basic Metabolic Panel DAILY Magnesium DAILY Albuterol (Albuterol 2.5 Mg/3 Ml Neb (Adult)) 2.5 mg INH RTQ2HR PRN PRN Reason: Shortness Of Breath Albuterol (Albuterol 2.5 Mg/3 Ml Neb (Adult)) 2.5 mg INH RTBID [place] Amlodipine Besylate (Amlodipine 5 Mg Tablet) 5 mg PO DAILY [facility] Aspirin (Aspirin Ec 81 Mg Tablet) 81 mg PO DAILY [facility] Atorvastatin Calcium (Atorvastatin 20 Mg Tablet) 80 mg PO DAILY [place] Budesonide (Budesonide 0.5 Mg/2 Ml Neb) 0.5 mg INH RTBID [place] Carvedilol (Carvedilol 3.125 Mg Tablet) 6.25 mg PO BID [facility] Last Admin: 05/18/25 00:05 Dose: 6.25 mg Documented By: LDRickey Fluticasone Propionate (Fluticasone 120 [place]/16 Gm [place].Susp) 1 spray NASAL BID PRN PRN Reason: Congestion Hydralazine HCl (Hydralazine 20 Mg/Ml Vial) 10 mg IV Q6HR PRN PRN Reason: SBP>= 160 or DBP >=110 Hydromorphone HCl (Hydromorphone Hcl 0.5 Mg/0.5 Ml Syringe) 0.5 mg IV Q2H PRN PRN Reason: Pain, Severe (7-10) Sodium Chloride (Normal Saline 0.9%) 1,000 mls @ 100 mls/hr IV CONT [facility] Last Admin: 05/18/25 03:53 Dose: 100 mls/hr Documented By: Infusion: 05/18/25 03:53 Dose: Infused Documented By: Admin: 05/17/25 20:30 Dose: 100 mls/hr Documented By: SMILEY Metronidazole (Flagyl) 500 mg in 100 mls @ 100 mls/hr IV Q6H [facility] Last Infusion: 05/18/25 02:06 Dose: Infused Documented By: Admin: 05/18/25 00:05 Dose: 100 mls/hr Documented By: LDV Ciprofloxacin (Cipro) 200 mg in 100 mls @ 100 mls/hr IV Q12H [facility] Ibuprofen (Ibuprofen 400 Mg Tablet) 400 mg PO Q4H PRN PRN Reason: Pain, Mild (1-3) Last Admin: 05/18/25 03:53 Dose: 400 mg Documented By: CADENCE Levothyroxine Sodium (Levothyroxine 25 Mcg Tablet) 25 mcg PO DAILY [facility] Melatonin (Melatonin 3 Mg Tablet) 6 mg PO BEDTIME PRN PRN Reason: insomnia Montelukast Sodium (Montelukast 10 Mg Tablet) 10 mg PO DAILY [facility] Multivitamins (Multivitamin 1 Tablet) 1 tab PO DAILY [facility] Naloxone HCl (Naloxone 0.4 Mg/Ml Vial) 0.2 mg IV Q2MIN PRN PRN Reason: Opiate Reversal Non-Form: B Complex- (Vitamin B12 Tab) 1 tab PO DAILY [facility] Non-Form: Magnesium (Oxide 500 Mg Cap) 500 mg PO BID PRN PRN Reason: constipation Ondansetron HCl (Ondansetron 4 Mg/2 Ml Inj) 4 mg IV NOW PRN PRN Reason: Nausea And Vomiting Last Admin: 05/17/25 18:32 Dose: 4 mg Documented By: Ondansetron HCl (Ondansetron 4 Mg Odt) 4 mg PO NOW PRN PRN Reason: Nausea And Vomiting Ondansetron HCl (Ondansetron 4 Mg/2 Ml Inj) 4 mg IV Q8HR PRN PRN Reason: Nausea And Vomiting Oxycodone HCl (Oxycodone Ir 5 Mg Tablet) 5 mg PO Q3H PRN PRN Reason: Pain, Moderate (4-6) Sodium Chloride (Sodium Chloride 1,000 Mg Tablet) 1,000 mg PO BID [facility] Last Admin: 05/18/25 00:05 Dose: 1,000 mg Documented By: CADENCE Trazodone HCl (Trazodone 50 Mg Tablet) 25 mg PO BEDTIME PRN PRN Reason: Insomnia Vitamin D (Cholecalciferol (Vitamin D3) 1,000 Unit Tablet) 1,000 unit PO DAILY [facility] Discontinued Medications Albuterol (Albuterol 2.5 Mg/3 Ml Neb (Adult)) 2.5 mg INH [id number] PRN PRN Reason: Dyspnea Albuterol (Albuterol 2.5 Mg/3 Ml Neb (Adult)) 2.5 mg INH [id number] [facility] Hydromorphone HCl (Hydromorphone Hcl 0.5 Mg/0.5 Ml Syringe) 0.5 mg IV NOW ONE Stop: 05/17/25 19:11 Last Admin: 05/17/25 19:27 Dose: 0.5 mg Documented By: SMILEY Sodium Chloride (Normal Saline 0.9%) 1,000 mls @ 1,000 mls/hr IV BOLUS ONE Stop: 05/17/25 18:47 Last Infusion: 05/17/25 20:51 Dose: Infused Documented By: Admin: 05/17/25 18:26 Dose: 1,000 mls/hr Documented By: POTASSIUM CHLORIDE IN WATER (Potassium Cl 10 Meq/100 Ml Nicole) 10 meq in 100 mls @ 100 mls/hr IV Q1H [facility] Stop: 05/17/25 20:29 Last Infusion: 05/17/25 20:54 Dose: Infused Documented By: Admin: 05/17/25 19:45 Dose: 100 mls/hr Documented By: Infusion: 05/17/25 19:42 Dose: Infused Documented By: Admin: 05/17/25 18:42 Dose: 100 mls/hr Documented By: Ciprofloxacin (Cipro) 400 mg in 200 mls @ 200 mls/hr IV NOW ONE Stop: 05/17/25 19:16 Last Infusion: 05/17/25 19:46 Dose: Infused Documented By: Admin: 05/17/25 18:27 Dose: 200 mls/hr Documented By: Metronidazole (Flagyl) 500 mg in 100 mls @ 100 mls/hr IV NOW ONE Stop: 05/17/25 19:16 Last Infusion: 05/17/25 20:54 Dose: Infused Documented By: Admin: 05/17/25 19:27 Dose: 100 mls/hr Documented By: SMILEY Non-Formulary Medication (Budesonide-Formoterol [Breyna]) 1 puff INHALATION BID [facility] Ondansetron HCl (Ondansetron 4 Mg/2 Ml Inj) 4 mg IV NOW ONE Stop: 05/17/25 19:11 Last Admin: 05/17/25 19:27 Dose: 4 mg Documented By: SMILEY Potassium Chloride (Potassium Chloride 20 Meq Tab) 40 meq PO NOW ONE Stop: 05/17/25 17:49 Last Admin: 05/17/25 19:27 Dose: 40 meq Documented By: SMILEY Vital Signs Vital signs: Vital Signs - 8 hr 05/17/25 13:34 Temperature 98 F Pulse Rate 90 Respiratory Rate 18 Blood Pressure 117/55 L Pulse Oximetry 97 Oxygen Delivery Method Room Air MDM - Abdominal Pain Lab Data Attestation: I reviewed the patient's lab results. Lab results narrative: White blood cell count 62474, hemoglobin 12.7, platelets adequate. Glucose 99. BUN 27 with creatinine 1.43. Serum CO2 21. Potassium 3.3 low, sodium 134 mildly low. Mild transaminitis, normal total bilirubin and alkaline phosphatase. Lipase normal. Troponin measurable but quite low. CPK 1362 elevated. 05/17/25 14:30 05/17/25 14:30 Labs: Lab Results 05/17/25 Range/Units 14:30 WBC 11.1 H (4.5-11.0) X10^3/uL RBC 4.28 (4.0-5.2) X10^6/uL Hgb 12.7 (12.0-16.0) g/dL Hct 37.9 (36-46) % MCV 88.7 (80-100) fL MCH 29.8 (26-34) PG MCHC 33.6 (30-36) % RDW 13.0 (11.6-14.8) % Plt Count 135 L (150-400) X10^3/uL Neut % (Auto) 84.6 H (50-75) % Lymph % (Auto) 9.5 L (25-40) % Isabela % (Auto) 5.4 (3-14) % Eos % (Auto) 0.1 L (2-4) % Baso % (Auto) 0.4 (0-2) % Neut # (Auto) 9400 H (5225-5991) /uL Lymph # (Auto) 1100 (5661-4507) /uL Isabela # (Auto) 600 (0-900) /uL Eos # (Auto) 0 (0-450) /uL Baso # (Auto) 0 (0-100) /uL Sodium 134 L (137-145) mmol/L Potassium 3.3 L (3.4-5.1) mmol/L Chloride 100 (98-107) mmol/L Carbon Dioxide 21 L (22-32) mmol/L BUN 27 H (7-17) mg/dL Creatinine 1.43 H (0.52-1.04) mg/dL Estimated GFR 37 L (>60) mL/min BUN/Creatinine Ratio 18.9 (6-22) Glucose 99 (70-99) mg/dL Lactate 1.2 (0.7-2.1) mmol/L Calcium 9.1 (8.4-10.2) mg/dL Magnesium 2.1 (1.6-2.3) mg/dL Total Bilirubin 1.3 (0.2-1.3) mg/dL AST 91 H (14-36) IU/L ALT 65 H (<35) IU/L Alkaline Phosphatase 97 (38-126) U/L Total Creatine Kinase 1362 H (30-135) U/L Troponin I 0.017 (0.01-0.034) ng/mL Total Protein 7.1 (6.3-8.2) g/dL Albumin 4.0 (3.5-5.0) g/dL Globulin 3.1 (1.7-4.1) g/dL Albumin/Globulin Ratio 1.3 (1.0-2.8) Triglycerides 101 (35-150) mg/dL Cholesterol 108 L (140-199) mg/dL LDL Cholesterol, Calc 45 (<100) mg/dL HDL Cholesterol 43 (40-60) mg/dL Lipase 147 (23-300) U/L TSH 0.574 (0.47-4.68) uIU/mL Imaging Data Chest x-ray: Radiologist's Impression: [address] [address] XRay Report Signed Patient: Enriqueta Vasquez MR#: [id number] : 1945 Acct:[id number] Age/Sex: 80 / F Date of Service: 05/17/25 Loc: ED Accession Number: [id number] Procedure: XR chest 1V Ordering Provider: Dilcia Wood D.O. PROCEDURE: XR CHEST 1V INDICATIONS: Chest Pain TECHNIQUE: One view of the chest was acquired. COMPARISON: None. FINDINGS: Surgical changes and devices: None. Lungs and pleura: Lungs are clear. No pleural effusions or pneumothorax. Mediastinum: Mediastinal contours appear normal. Heart size is normal. Bones and chest wall: No suspicious bony lesions. Overlying soft tissues appear unremarkable. IMPRESSION: No acute cardiopulmonary abnormality is seen. Dictated by: Mau Avila M.D. on 05/17/2025 at 15:11 Approved by: Mau Avila M.D. on 05/17/2025 at 15:12 CT scan - abdomen/pelvis: Radiologist's Impression: Enriqueta Vasquez??80??F??1945 ? Allergy/Adv: Penicillins, latex, codeine, hydrocodone, External [place] [address] CT Scan Report Signed Patient: Enriqueta Vasquez MR#: [id number] : 1945 Acct:[id number] Age/Sex: 80 / F Date of Service: 05/17/25 Loc: ED Accession Number: [id number] Procedure: CT angio Abd/Pel GI Bleed Ordering Provider: Dilcia Wood D.O. PROCEDURE: CT ANGIO ABD/PEL GI BLEED INDICATIONS: abdominal pain TECHNIQUE: After the administration of intravenous contrast, 2.5 mm sections acquired from the diaphragm to the iliac crests. 10 mm maximum intensity projection (MIP) coronal and sagittal reformats were then performed. For radiation dose reduction, the following was used: automated exposure control. COMPARISON: None. FINDINGS: Image quality: Diagnostic. Abdominal aorta: No aortic aneurysm or evidence of acute aortic syndrome. [id number] atherosclerotic calcifications are noted in infrarenal abdominal aorta with less than 50% stenosis. Mesenteric arteries: Patent without hemodynamically significant stenosis. No area of active contrast extravasation. Renal arteries: Patent without hemodynamically significant stenosis. Lower chest: Unremarkable. ABDOMEN: Liver: No solid mass. Gallbladder: Gallbladder is surgically absent. Biliary ducts: No biliary dilation. Pancreas: No ductal dilation. Spleen: Size is within normal limits. Adrenal Glands: No adrenal nodules. Kidneys and Ureters: No hydronephrosis. No solid mass. No complex renal cystic lesion which requires follow up. Stomach and Bowel: There is no bowel obstruction. No gastric or small bowel wall thickening. No colonic wall thickening. Large amount of fecal matter throughout the colon is seen extending to the level of mid sigmoid colon. Suggestion of distal sigmoid colon wall thickening and mild pericolonic fat stranding best seen on series 3, image 177. No discrete drainable abscess collection. No other area of abnormal colonic wall thickening. Peritoneum: No abnormal intraperitoneal fluid. No free air. Ventral Wall: No hernia. Abdominal Nodes: No retroperitoneal or mesenteric adenopathy by size criteria. Vessels: Aorta, as above. Normal IVC. PELVIS: Pelvic Organs: Unremarkable. Bladder: Unremarkable. Pelvic Nodes: No enlarged lymph nodes. Miscellaneous: No inguinal hernias are seen. Bones: No aggressive osseous abnormality. IMPRESSION: 1. No abdominal aortic aneurysm or dissection. No hemodynamically significant stenosis or aneurysm is seen mesenteric arteries or renal arteries. Moderate atherosclerotic calcifications involving infrarenal abdominal aorta with up to 50% stenosis. 2. Narrowing of the lumen and wall thickening involving mid to distal sigmoid colon in lower abdomen/pelvis with pericolonic fat stranding concerning for acute diverticulitis versus sigmoid colitis. No abscess collection. No free fluid or free air. Significant constipation proximal to the site of inflammation. GI follow-up is recommended to rule out underlying neoplastic process. 3. Other chronic findings as above. Dictated by: Cam Peralta M.D. on 05/17/2025 at 15:27 Approved by: Cam Peralta M.D. on 05/17/2025 at 15:38 CT scan - head: Radiologist's Impression: [place] [address] CT Scan Report Signed Patient: Enriqueta Vasquez MR#: [id number] : 1945 Acct:[id number] Age/Sex: 80 / F Date of Service: 05/17/25 Loc: ED Accession Number: [id number] Procedure: CT head/brain wo con Ordering Provider: Dilcia Wood D.O. PROCEDURE: CT HEAD/BRAIN WO CON INDICATIONS: fall, head injury TECHNIQUE: Noncontrast 4.5 mm thick angled axial sections acquired from the foramen magnum to the vertex, with coronal and sagittal reformats. For radiation dose reduction, the following was used: automated exposure control, adjustment of mA and/or kV according to patient size. COMPARISON: [facility], CT, CT HEAD/BRAIN WO CON, 09/12/2024, 11:48. FINDINGS: Image quality: Diagnostic. CSF spaces: Basal cisterns are patent. No extra-axial fluid collections. The ventricles are symmetric in size and shape. Brain: No intracranial bleeds or mass effect. There is cerebral volume loss, with resultant ventricular and sulcal prominence. There are periventricular and deep white matter chronic small vessel ischemic changes. There is intracranial internal carotid artery atherosclerosis. Skull and face: Calvarium and visualized facial bones appear intact, without suspicious lesions. Sinuses: Mucosal thickening in bilateral ethmoid sinuses and left maxillary sinus is seen. Bilateral mastoid air cells are fairly well aerated. IMPRESSION: 1. No acute intracranial pathology. 2. Age related volume loss and mild white matter chronic small vessel ischemic changes. 3. Mild left maxillary and bilateral ethmoid sinusitis. Dictated by: Cam Peralta M.D. on 05/17/2025 at 15:24 Approved by: Cam Peralta M.D. on 05/17/2025 at 15:25 MDM Narrative Medical decision making narrative: 80-year-old female with left-sided abdominal pain, tenderness left lower quadrant. Afebrile, sirs screen negative. DDx consider diverticulitis, colitis, obstruction, abscess, volvulus, constipation, adenitis, hernia, other. Labs pending. Consider imaging. IV Dilaudid/Zofran. IV fluid bolus. Initial lab data: White blood cell count 89750, hemoglobin 12.7, platelets adequate. Glucose 99. BUN 27 with creatinine 1.43. Serum CO2 21. Potassium 3.3 low, sodium 134 mildly low. Mild transaminitis, normal total bilirubin and alkaline phosphatase. Lipase normal. Troponin measurable but quite low. CPK 1362 elevated. Chest x-ray negative. See radiology report. CT head ordered from triage, negative. See radiology report. CT abdomen and pelvis Impressions: 1. No abdominal aortic aneurysm or dissection. No hemodynamically significant stenosis or aneurysm is seen mesenteric arteries or renal arteries. Moderate atherosclerotic calcifications involving infrarenal abdominal aorta with up to 50% stenosis. 2. Narrowing of the lumen and wall thickening involving mid to distal sigmoid colon in lower abdomen/pelvis with pericolonic fat stranding concerning for acute diverticulitis versus sigmoid colitis. No abscess collection. No free fluid or free air. Significant constipation proximal to the site of inflammation. GI follow-up is recommended to rule out underlying neoplastic process. 3. Other chronic findings as above. See radiology report. History of penicillin allergy, IV ciprofloxacin, IV Flagyl. IV and oral potassium, IV fluid bolus. Patient is still has tenderness after analgesia, discussed outpatient versus inpatient treatment. She would like to be admitted. \. PCP Dr Hanna, we will contact cross cover Dr. Jones. Case discussed with Dr. Jones, who states that patient has for Dr. Hanna are admitted through the hospitalist. We will contact hospitalist. 1929, case discussed with hospitalist Dr. House who accepts patient for admission to inpatient service Critical Care Time Critical Care Time Total Critical Care Time: 35 Attestation: The high probability of a clinically significant, sudden or life threatening deterioration of the [GI, abdominopelvic] system(s) required my full and direct attention, intervention and personal management. The aggregate critical care time was [35] minutes. This time is in addition to time spent performing reported procedures but includes the following: [x] Data Review and interpretation [x] Patient assessment and monitoring of vital signs [x] Documentation [x] Medication orders and management Discharge Plan Departure Patient Disposition: Admitted As Inpatient Clinical Impression: Diverticulitis, Hypokalemia Admit Date/Time: 05/17/25 20:08 Admit Provider: Andrez House
[2025-05-17] MEDS: SODIUM CHLORIDE 0.9% 1,000 ML 1000 ML IV (18:26)
[2025-05-17] MEDS: CIPROFLOXACIN 400 MG/200 ML PIGGYBACK 200 MG IV (18:27)
[2025-05-17] MEDS: ONDANSETRON 4 MG/2 ML INJ IV ×2 (18:32→19:27)
[2025-05-17] MEDS: POTASSIUM CHLORIDE IN WATER 10 MEQ/100 ML PIGGYBACK 100 MEQ IV ×2 (18:42→19:45)
[2025-05-17] MEDS: POTASSIUM CHLORIDE 20 MEQ TAB 40 MEQ PO (19:27)
[2025-05-17] MEDS: metroNIDAZOLE 500 MG/100 ML PIGGYBACK 100 MG IV (19:27)
[2025-05-17 20:14] LABS: Cholesterol 108 mg/dL (140-199); HDL Cholesterol 43 mg/dL (40-60); Triglycerides 101 mg/dL (35-150)
[2025-05-17] MEDS: SODIUM CHLORIDE 0.9% 1,000 ML 100 ML IV (20:30)
[2025-05-17 20:45] LABS: Thyroid Stimulating Hormone 0.574 uIU/mL (0.47-4.68)
--- NOTE | 2025-05-17 20:48 | PC.NURSE ---
purewick placed as per pt request, pt states she feels so wobbly on her legs she does not want to fall
[2025-05-18 00:05] VITALS: PULSE 70
[2025-05-18] MEDS: SODIUM CHLORIDE 1,000 MG TABLET 1000 MG PO ×3 (00:05→20:14)
[2025-05-18] MEDS: metroNIDAZOLE 500 MG/100 ML PIGGYBACK 100 MG IV ×4 (00:05→18:49)
[2025-05-18] MEDS: SODIUM CHLORIDE 0.9% 1,000 ML 100 ML IV ×2 (03:53→16:47)
[2025-05-18] MEDS: IBUPROFEN 400 MG TABLET PO ×3 (03:53→20:14)
--- NOTE | 2025-05-18 06:07 | PM.HP.1 ---
History of Present Illness History of Present Illness Chief complaint: Stomach pain, nausea, bloody stools 3 days Narrative: 80 years old female with history of hypertension, hyperlipidemia, CAD, COPD, hypothyroidism, insomnia presented to the ER with left-sided abdominal pain, nausea and vomiting in the last 3 days getting progressively worse. Denies any shortness of breath, chest pain, fever, cough, diarrhea or dysuria. Her last colonoscopy was more than 10 years ago. Laboratory shows WBC 11.1, H&H 12.7?37.9, platelets 135, sodium 134, potassium 3.3, creatinine 1.43, blood sugar 99, lipase 147, TSH 0.57, AST 91, ALT 65, CPK 1362, magnesium 2.1, lactate 1.2. Chest x-ray unremarkable. Abdominal CT scan shows narrowing of the lumen and wall thickening involving mid to distal sigmoid colon with pericolonic fat stranding concerning for acute diverticulitis versus sigmoid colitis. GI follow-up is recommended to rule out underlying neoplastic process. CT of the head unremarkable. History of penicillin allergy. She was given ciprofloxacin IV, Flagyl IV oral potassium and fluid bolus. [facility] Medical History (Updated 05/17/25 @ 19:20 by Andres Fong MD) Acute hyponatremia Essential hypertension Bilateral leg edema Asthma Nasal congestion CKD (chronic kidney disease) Family History Father Hyperlipidemia Social History household members: spouse Smoking Status: Former smoker Tobacco: How many years used: 30 second hand exposure: Yes (my smokes a pipe once a day.) alcohol intake: never substance use type: marijuana Meds Home Medications and Allergies Home Medications ?Medication ?Instructions ?Recorded ?Confirmed ?Type cholecalciferol (vitamin D3) 25 1,000 unit PO DAILY 03/22/18 05/17/25 History mcg (1,000 unit) capsule multivitamin 1 tab PO DAILY 04/03/22 05/17/25 History magnesium oxide 500 mg capsule 500 mg PO BID PRN constipation #90 05/30/22 05/17/25 Rx caps B Complex-Vitamin B12 1 tab PO DAILY 09/12/24 05/17/25 History sodium chloride 1 gram tablet 1,000 mg PO BID 09/12/24 05/17/25 History Breyna 160 mcg-4.5 mcg/actuation 1 puff inhalation BID #30.9 grams 04/11/25 05/17/25 Rx HFA aerosol inhaler (budesonide-formoterol) amlodipine 5 mg tablet 5 mg PO DAILY #90 tabs 04/11/25 05/17/25 Rx aspirin 81 mg capsule 81 mg PO DAILY #90 caps 04/11/25 05/17/25 Rx carvedilol 6.25 mg tablet 6.25 mg PO BID #180 tabs 04/11/25 05/17/25 Rx fluticasone propionate 50 1 spray intranasal BID PRN 04/11/25 05/17/25 Rx mcg/actuation nasal congestion #16 grams spray,suspension levothyroxine 25 mcg tablet 25 mcg PO DAILY #80 tabs 04/11/25 05/17/25 Rx montelukast 10 mg tablet 10 mg PO DAILY #90 tabs 04/11/25 05/17/25 Rx rosuvastatin 40 mg tablet 40 mg PO DAILY #90 tabs 04/11/25 05/17/25 Rx trazodone 50 mg tablet 25 mg (1/2 x 50 mg) PO ONCE PM PRN 04/11/25 05/17/25 Rx for insomnia #30 tabs Allergies Allergy/AdvReac Type Severity Reaction Status Date / Time Penicillins (PENICILLINS) Allergy Severe ANAPHYLACTIC Verified 05/17/25 13:35 SHOCK latex (LATEX) Allergy Intermediate RASH Verified 05/17/25 13:35 codeine (CODEINE) AdvReac Severe FALSE Verified 05/17/25 13:35 HEART ATTACK SYMPTOMS hydrocodone AdvReac Severe made me Verified 05/17/25 13:35 violently ill and did nothing for the pain Review of Systems Review of Systems ROS: Yes All systems reviewed with the patient and are negative except as otherwise documented Constitutional Constitutional: Reports as per HPI and Reports system reviewed and no additional complaints, except as documented Eyes Eyes: Reports as per HPI and Reports system reviewed and no additional complaints, except as documented ENT Ears, Nose, Mouth, and Throat: Yes as per HPI and Yes system reviewed and no additional complaints, except as documented Cardiovascular Cardiovascular: Reports system reviewed and no additional complaints, except as documented Respiratory Respiratory: Reports system reviewed and no additional complaints, except as documented Gastrointestinal Gastrointestinal: Reports system reviewed and no additional complaints, except as documented Genitourinary Genitourinary: Reports system reviewed and no additional complaints, except as documented Musculoskeletal Musculoskeletal: Reports system reviewed and no additional complaints, except as documented, Reports abnormal gait and Reports numbness Neurologic Neurologic: Reports system reviewed and no additional complaints, except as documented, Reports abnormal gait, Reports confusion and Reports numbness Psychiatric Psychiatric: Reports system reviewed and no additional complaints, except as documented and Reports confusion Exam Vital Signs (past 8 hours): - 05/18/25 00:05 Pulse Rate 70 Oxygen Delivery Method Room Air Oxygen Flow Rate 0 Const General: cooperative, comfortable and well developed Orientation: alert and oriented x3 HENMT Head: normal to inspection, normocephalic and atraumatic Face and sinus: normal facial exam Mouth: oral mucosae normal and moist mucous membranes Throat: posterior oropharynx normal Eyes General: appearance normal, both eyes and all related structures Pupils: PERRL EOM: EOM intact bilaterally Neck Neck: normal visual inspection and full ROM Chest Chest: normal inspection of the chest Resp Effort & Inspection: normal respiratory effort and able to speak in complete sentences Auscultation: clear to auscultation bilaterally Cardio Palpation: normal PMI Rate: regular rate Rhythm: regular rhythm Heart Sounds: S1 normal and S2 normal GI Inspection: normal to inspection Palpation: soft and no hepatosplenomegaly Auscultation: normal bowel sounds Skin General: no rashes or lesions noted Lesions: no lesions Rashes: no rashes Trauma: no lacerations or abrasions Neuro General: patient alert, patient awake, patient oriented x3 and no focal motor deficits Cranial Nerves: CN's II-XI intact bilaterally Cognition: normal cognition Speech: speech normal Gait: normal gait Motor: muscle tone normal throughout Sensory Exam: no sensory deficits noted Extrem General: full ROM and no calf tenderness Psych Appearance: grossly normal Mental Status: mental status grossly normal Speech and Movement: speech and movement normal Objective Labs 05/17/25 14:30 05/17/25 14:30 Labs: Laboratory Results - last 24 hr 05/17/25 14:30 WBC 11.1 H RBC 4.28 Hgb 12.7 Hct 37.9 MCV 88.7 MCH 29.8 MCHC 33.6 RDW 13.0 Plt Count 135 L Neut % (Auto) 84.6 H Lymph % (Auto) 9.5 L Cole % (Auto) 5.4 Eos % (Auto) 0.1 L Baso % (Auto) 0.4 Neut # (Auto) 9400 H Lymph # (Auto) 1100 Cole # (Auto) 600 Eos # (Auto) 0 Baso # (Auto) 0 Sodium 134 L Potassium 3.3 L Chloride 100 Carbon Dioxide 21 L BUN 27 H Creatinine 1.43 H Estimated GFR 37 L BUN/Creatinine Ratio 18.9 Glucose 99 Lactate 1.2 Calcium 9.1 Magnesium 2.1 Total Bilirubin 1.3 AST 91 H ALT 65 H Alkaline Phosphatase 97 Total Creatine Kinase 1362 H Troponin I 0.017 Total Protein 7.1 Albumin 4.0 Globulin 3.1 Albumin/Globulin Ratio 1.3 Triglycerides 101 Cholesterol 108 L LDL Cholesterol, Calc 45 HDL Cholesterol 43 Lipase 147 TSH 0.574 Assessment & Plan Assessment & Plan narrative: Acute diverticulitis versus sigmoid colitis - IV fluids and monitor electrolytes -supportive measures with pain control and antiemetics p.r.n. -IV antibiotics with Cipro plus metronidazole -follow-up on the blood cultures -once tolerated his p.o. Will switch IV antibiotics to oral -monitor for bowel perforation (sign of peritonitis, severe abdominal pain, and pt becoming more toxic and clinically deteriorating) -cont home meds unless contraindicated -if the patient fail to improve in the next 48-72 hours or signs of worsening will order CT scan of the abdomen and pelvis to rule out any abscess or perforation -if the patient has leonides perforation will requests emergent surgical consult - GI follow-up as outpatient CAD. Will restart aspirin, Coreg and rosuvastatin. Hyperlipidemia. Will restart rosuvastatin Hypothyroidism. Will restart levothyroxine Insomnia. Trazodone as needed COPD. Will restart Breyna and Singulair. Albuterol as needed Time-Based Coding :: [TOTAL MINUTES] spent with patient and on the chart (including review of chart, obtaining history, exam, reviewing outside data, placing orders, documenting exam and treatment plan, and counseling patient) on [DATE]. Quality VTE Deep Vein Thrombosis/Pulmonary Embolism Present on Admission: No MIPS - Admit I confirm the patient?s Advance Care Plan is present, Code status is documented, Surrogate decision maker is in patient?s record [If Yes, STOP here]: Yes MIPS - Meds 'Current medications' to include all prescriptions, [id number] products, herbals, cannabis/cannabidiol products, and vitamin/mineral/dietary (nutritional) supplements. I have utilized all available resources to obtain, update, or review the patient?s current medications. [If Yes, STOP here]: Yes
[2025-05-18 07:10] VITALS: PULSE 70; RESP 14; O2SAT 97
[2025-05-18] MEDS: BUDESONIDE 0.5 MG/2 ML NEB INH ×2 (07:10→19:54)
[2025-05-18] MEDS: ALBUTEROL 2.5 MG/3 ML NEB (ADULT) INH ×2 (07:10→19:53)
[2025-05-18 08:22] VITALS: BP 118/76; PULSE 107; RESP 18; TEMP 35.7; O2SAT 97
[2025-05-18] MEDS: LEVOTHYROXINE 25 MCG TABLET PO (08:36)
[2025-05-18] MEDS: ATORVASTATIN 20 MG TABLET 80 MG PO (08:37)
[2025-05-18] MEDS: ASPIRIN EC 81 MG TABLET PO (08:37)
[2025-05-18] MEDS: MULTIVITAMIN 1 TABLET 1 TAB PO (08:37)
[2025-05-18] MEDS: MONTELUKAST 10 MG TABLET PO (08:37)
[2025-05-18] MEDS: CHOLECALCIFEROL (VITAMIN D3) 1,000 UNIT TABLET 1000 UNIT PO (08:38)
[2025-05-18 08:44] LABS: Blood Urea Nitrogen 24 mg/dL (7-17); Calcium 8.4 mg/dL (8.4-10.2); Carbon Dioxide 17 mmol/L (22-32); Chloride 107 mmol/L (98-107); Estimated Glomerular Filt Rate 47 mL/min (>60); Glucose 96 mg/dL (70-99); HEMOLYSIS < 15 (0-50); Magnesium 1.9 mg/dL (1.6-2.3); Potassium 4.1 mmol/L (3.4-5.1); Sodium 131 mmol/L (137-145)
[2025-05-18] MEDS: CIPROFLOXACIN 400 MG/200 ML PIGGYBACK 100 MG IV ×2 (08:45→20:15)
--- NOTE | 2025-05-18 09:29 | PC.NURSE ---
Patient is alert and oriented x4, she denies nausea at this time. She did take her medication with a sip of water and her salt tabs crushed in a bite of apple sauce. BT are hypoactive x4. Patient is on ivf and iv antibiotics. She is using a purewick to void.
--- NOTE | 2025-05-18 13:56 | PM.HP.1 ---
History of Present Illness History of Present Illness Date Patient Seen: 05/18/25 Chief complaint: Stomach pain, nausea, bloody stools 3 days Narrative: Chief complaint: Abdominal pain nausea and vomiting secondary to sigmoid diverticulitis and colitis History of present illness: 05/18: 1 years old female with history of hypertension, hyperlipidemia, CAD, COPD, hypothyroidism, insomnia presented to the ER with left-sided abdominal pain, nausea and vomiting in the last 3 days getting progressively worse. Denies any shortness of breath, chest pain, fever, cough, diarrhea or dysuria. Her last colonoscopy was more than 10 years ago. Findings in the emergency department: Laboratory shows WBC 11.1, H&H 12.7?37.9, platelets 135, sodium 134, potassium 3.3, creatinine 1.43, blood sugar 99, lipase 147, TSH 0.57, AST 91, ALT 65, CPK 1362, magnesium 2.1, lactate 1.2. CT of the abdomen and pelvis: Narrowing of the lumen and wall thickening involving mid to distal sigmoid colon in lower abdomen/pelvis with pericolonic fat stranding concerning for acute diverticulitis versus sigmoid colitis. No abscess collection. No free fluid or free air. Significant constipation proximal to the site of inflammation. GI follow-up is recommended to rule out underlying neoplastic process. Patient admitted for IV fluids IV antibiotics bowel rest Hospital course: 05/18: Overnight patient tolerated medications pain control with satisfactory no fevers or chills or vomiting overnight Review of systems: No chest pain palpitations shortness for breath No fever or chills night sweats or rigors No urinary symptom No paresthesia paresis No loss of consciousness or confusion Physical exam: Elderly female alert oriented cogent very pleasant but does appear to be not feeling well HEENT unremarkable Heart rate and rhythm regular Lungs clear Abdomen is scant bowel sounds localized tenderness left lower quadrant no guarding no rigidity Extremities no edema Neuro alert and oriented nonfocal For objective laboratory and imaging please see bottom of the note: Assessment and plan: Acute sigmoid diverticulitis and colitis currently on ciprofloxacin and metronidazole intravenously on bowel rest Continue bowel rest very cristina with clear liquids and advancing diet Continue IV antibiotics Follow up with the GI for possible neoplasm in the colon Monitor blood culture Chronic kidney disease: Renally dose medications Avoid nephrotoxic agents Chronic asthma: No signs of exacerbation DVT prophylaxis: SCDs only Pharmacologic contraindication due to risk of bleeding gastrointestinal Disposition: Inpatient management patient requiring IV antibiotics IV fluids and anticipate 3-4 days of hospitalization if there are no complications requiring surgery Likely will be able to go home after discharge but if the patient is weekend may need evaluation Code status: Full code blue Time based billin minutes were involved in the evaluation of this patient which included direct [id number] evaluation of the patient direct physical examination discussion with nursing staff review of objective laboratory and imaging findings including direct visualization of images and discussion with clinical case manager team [facility] Medical History (Updated 05/17/25 @ 19:20 by Andres Fong MD) Acute hyponatremia Essential hypertension Bilateral leg edema Asthma Nasal congestion CKD (chronic kidney disease) Family History Father Hyperlipidemia Social History household members: spouse Smoking Status: Former smoker Tobacco: How many years used: 30 second hand exposure: Yes (my smokes a pipe once a day.) alcohol intake: never substance use type: marijuana Meds Home Medications and Allergies Home Medications ?Medication ?Instructions ?Recorded ?Confirmed ?Type cholecalciferol (vitamin D3) 25 1,000 unit PO DAILY 03/22/18 05/17/25 History mcg (1,000 unit) capsule multivitamin 1 tab PO DAILY 04/03/22 05/17/25 History magnesium oxide 500 mg capsule 500 mg PO BID PRN constipation #90 05/30/22 05/17/25 Rx caps B Complex-Vitamin B12 1 tab PO DAILY 09/12/24 05/17/25 History sodium chloride 1 gram tablet 1,000 mg PO BID 09/12/24 05/17/25 History Breyna 160 mcg-4.5 mcg/actuation 1 puff inhalation BID #30.9 grams 04/11/25 05/17/25 Rx HFA aerosol inhaler (budesonide-formoterol) amlodipine 5 mg tablet 5 mg PO DAILY #90 tabs 04/11/25 05/17/25 Rx aspirin 81 mg capsule 81 mg PO DAILY #90 caps 04/11/25 05/17/25 Rx carvedilol 6.25 mg tablet 6.25 mg PO BID #180 tabs 04/11/25 05/17/25 Rx fluticasone propionate 50 1 spray intranasal BID PRN 04/11/25 05/17/25 Rx mcg/actuation nasal congestion #16 grams spray,suspension levothyroxine 25 mcg tablet 25 mcg PO DAILY #80 tabs 04/11/25 05/17/25 Rx montelukast 10 mg tablet 10 mg PO DAILY #90 tabs 04/11/25 05/17/25 Rx rosuvastatin 40 mg tablet 40 mg PO DAILY #90 tabs 04/11/25 05/17/25 Rx trazodone 50 mg tablet 25 mg (1/2 x 50 mg) PO ONCE PM PRN 04/11/25 05/17/25 Rx for insomnia #30 tabs Allergies Allergy/AdvReac Type Severity Reaction Status Date / Time Penicillins (PENICILLINS) Allergy Severe ANAPHYLACTIC Verified 05/17/25 13:35 SHOCK latex (LATEX) Allergy Intermediate RASH Verified 05/17/25 13:35 codeine (CODEINE) AdvReac Severe FALSE Verified 05/17/25 13:35 HEART ATTACK SYMPTOMS hydrocodone AdvReac Severe made me Verified 05/17/25 13:35 violently ill and did nothing for the pain Exam Vital Signs (past 8 hours): - 05/18/25 07:10 05/18/25 08:22 Temperature 96.3 F L Pulse Rate 70 107 H Respiratory Rate 14 18 Blood Pressure 118/76 Pulse Oximetry 97 97 Oxygen Delivery Method Room Air Oxygen Flow Rate 0 Fraction of Inspired Oxygen 21 Fraction of Inspired Oxygen 21 SaO2/FiO2 Ratio 461 Oxygen Delivery Method Room Air Oxygen Flow Rate 0 Objective Labs 05/17/25 14:30 05/18/25 07:50 Labs: Laboratory Results - last 24 hr 05/17/25 05/18/25 14:30 07:50 WBC 11.1 H RBC 4.28 Hgb 12.7 Hct 37.9 MCV 88.7 MCH 29.8 MCHC 33.6 RDW 13.0 Plt Count 135 L Neut % (Auto) 84.6 H Lymph % (Auto) 9.5 L Callahan % (Auto) 5.4 Eos % (Auto) 0.1 L Baso % (Auto) 0.4 Neut # (Auto) 9400 H Lymph # (Auto) 1100 Callahan # (Auto) 600 Eos # (Auto) 0 Baso # (Auto) 0 Sodium 134 L 131 L Potassium 3.3 L 4.1 Chloride 100 107 Carbon Dioxide 21 L 17 L BUN 27 H 24 H Creatinine 1.43 H 1.17 H Estimated GFR 37 L 47 L BUN/Creatinine Ratio 18.9 20.5 Glucose 99 96 Lactate 1.2 Calcium 9.1 8.4 Magnesium 2.1 1.9 Total Bilirubin 1.3 AST 91 H ALT 65 H Alkaline Phosphatase 97 Total Creatine Kinase 1362 H Troponin I 0.017 Total Protein 7.1 Albumin 4.0 Globulin 3.1 Albumin/Globulin Ratio 1.3 Triglycerides 101 Cholesterol 108 L LDL Cholesterol, Calc 45 HDL Cholesterol 43 Lipase 147 TSH 0.574 Assessment & Plan Time-Based Coding :: [TOTAL MINUTES] spent with patient and on the chart (including review of chart, obtaining history, exam, reviewing outside data, placing orders, documenting exam and treatment plan, and counseling patient) on [DATE]. Quality VTE Deep Vein Thrombosis/Pulmonary Embolism Present on Admission: No
--- NOTE | 2025-05-18 15:30 | CM.DANOTE ---
DCP Assessment note pt is an 80yo F admitted with diverticulitis/abdominal pain/colitis. PLANT PRODUCTION MANAGER reviewed EMR. plan for IV abx and advancing diet as tolerated. plan for 3-4 days. PLANT PRODUCTION MANAGER met with pt and spouse in room. pt lives with spouse in home in [place], has been struggling with mobility for past 3 days, hx of [facility] and was hopeful to start up with again. uses walking poles at baseline, 2 steps into home. could get bath bench/walker from [facility]. no hx SNF. reports feeling really weak. provider agreeable to PT/OT eval tomorrow, PLANT PRODUCTION MANAGER placed orders. PLANT PRODUCTION MANAGER sent initial referral information to [facility] pending therapy recs. P: hopeful to dc 3-4 days with spouse support and [facility]. f2f/order needed. will continue to follow closely for DCP coordination YENNIFER Javier Discharge Planning/Care Management CM Discharge Assessment Start: 05/17/25 21:05 Freq: Status: Active Protocol: Document 05/18/25 15:28 SL (Rec: 05/18/25 15:30 SL [id number]) Discharge Planning Assessment Assigned Discharge YENNIFER Chavez Mosaic Tiler Provider Reva Hanna Insurance Medicare,Other (enter in Comment) Insurance Comment CECIL DPOA/Assigned Chapo, spouse Designee Name Contact Information [phone] Advance Directives? No History Provided By Patient,Medical Record Prior Living House Arrangements Household Members spouse Type of Relies on Others transporation used prior to admit Independent with ADL Yes 's Is patient alert and Yes oriented? Needs Assistance Bathing With DME Already Rented / Other Owned Comment walking poles Patient/Family Home with Home Health Preference Comment Home w/spouse Discharge Plan Home with Home Health Transportation Spouse Arrangement Referrals Initiated None needed,Home Health Additional Comment preference resumption of [facility] Whiteboard Updated Yes in Patient Room with name and ext. # of Veterinarian Epidemiologist Review Status In Process Please Provide Date 05/18/25 Initial DC Assessment Was Performed Next Review Type Continued Stay Review
--- NOTE | 2025-05-18 16:24 | PT.IIE ---
Current Diagnoses Diverticulitis of intestine, part unspecified, without perforation or abscess without bleeding (05/17/25) Medical History (Last Updated 09/20/24 @ 13:51 by Reva Hanna DO) Acute hyponatremia Asthma Bilateral leg edema CKD (chronic kidney disease) Essential hypertension Nasal congestion Physical Therapy Inpatient Evaluation/Re-Eval M1 PT/OT-IP Prior Functional Status Start: 05/18/25 16:14 Freq: NEEDED Status: Active Protocol: Document 05/18/25 16:15 KJ (Rec: 05/18/25 16:24 KJ [id number]) Medical Review Prior Functional Status Medical History Yes Reviewed Mobility and Gait Ambulated w/bilat walking canes for several years. Hx R TKR doing well. Hx CVA w/L side weakness. Has not been eating much lately due to a combination of factors including new dentures and now abd pain Activities of Daily Previously indep in ADLs Living and IADL's Social History Household Members spouse Living Arrangements House Number of Stairs To 1 in front, 2 in back Enter/Railing? Home Environment Standard Height Toilet Additional Social will be going to [employer] tomorrow to look History Comment for a shower bench and a walker M2 PT-IP Current Condition Start: 05/18/25 16:14 Freq: NEEDED Status: Active Protocol: Document 05/18/25 16:15 KJ (Rec: 05/18/25 16:24 KJ [id number]) Physical Therapy Current Condition Current Condition Evaluation Date 05/18/25 Treatment Diagnosis Impaired mobility, poor activity tolerance Onset Date 05/11/25 M3 PT-IP Subjective Start: 05/18/25 16:14 Freq: NEEDED Status: Active Protocol: Document 05/18/25 16:15 KJ (Rec: 05/18/25 16:24 KJ [id number]) Subjective Physical Therapy Visit Type Type Initial Evaluation Visit Start Time 15:32 Visit Stop Time 16:14 Physical Therapy Visit Comments Patient Comments Hasn't been up oob. Has purewick. Yesterday sat up in wheelchair 5 hours waiting for a room. Last 4 days before coming to hospital was lying in bed. Patient Goals To feel better and go home. Therapy Pain Assessment Pain Present Pain Present Denied Pain M4 PT-IP Mobility and Gait Start: 05/18/25 16:14 Freq: NEEDED Status: Active Protocol: Document 05/18/25 16:15 KJ (Rec: 05/18/25 16:24 KJ [id number]) PT-Bed Mobility Assessment Rolling Type of Rolling Roll to Left Level of Assist Contact Guard Assistance Supine to Sit Supine to Sit Contact Guard Assistance Sit to Supine Sit to Supine Moderate Assistance Scooting Scooting to Edge of Contact Guard Assistance Bed PT-Transfer Assessment Comments Mobility Comments Upon sitting pt became dizzy and nauseous. Pt tried to sit longer but did not tolerate it so she returned to the supine position. she declined standing and ambulation. PT-Balance Assessment Sitting Balance and Reactions Static Sitting Good Balance Ability Dynamic Sitting Good Balance Ability M5 PT-IP Objective Assessments Start: 05/18/25 16:14 Freq: NEEDED Status: Active Protocol: Document 05/18/25 16:15 KJ (Rec: 05/18/25 16:24 KJ [id number]) Orientation Orientation/Cognition Level of Alertness Alert Orientation Name,Age,Birthday,Month,Date,Year,Day of Week,Place, Situation Language Function No Deficits Noted Ability Safety Awareness Understands Safety Issues Memory Description No Deficits Noted Gross Range of Motion Upper Extremity ROM Assessment Within Functional Limits Lower Extremity ROM Assessment Within Functional Limits Strength Upper Extremity Strength Assessment Within Functional Limits Lower Extremity Strength Assessment Within Functional Limits Comments Strength Comments Pt reported L sided weakness however tested WFL bilat ( 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 Educated both on progression of therapy. M7 PT-IP Assessment and Plan Start: 05/18/25 16:14 Freq: NEEDED Status: Active Protocol: Document 05/18/25 16:15 KJ (Rec: 05/18/25 16:24 KJ [id number]) PT Summary Assessment and Plan Potential Rehabilitation Good Potential Status of Condition Evolving at Evaluation Summary Impairments Transfers,Gait,Activity Tolerance Goals Bed Mobility Goal Independent Transfer Goal Standby Assistance Gait Goal Standby Assistance Gait Distance 50 Other Goals ascend/descend 2 steps w/rail Frequency of Treatment Frequency Of Once a Day Treatment Treatment Plan Physical Therapy Bed Mobility Training,Transfer Training,Gait Training, Treatment Plan Therapeutic Exercise Other Progress to standing and ambulation Recommendations and Next Treatment Focus Discharge Recommendations PT Discharge Home with Assistance,Home Health Recommendations Equipment Needed for walker, shower bench ( will obtain) Home Before Discharge
[2025-05-18 19:59] VITALS: PULSE 77; RESP 14; O2SAT 97
[2025-05-18 20:14] VITALS: BP 107/63; PULSE 77
[2025-05-18] MEDS: MAGNESIUM OXIDE 400 MG TABLET PO (20:14)
[2025-05-18] MEDS: MELATONIN 3 MG TABLET 6 MG PO (20:14)
[2025-05-18] MEDS: ONDANSETRON 4 MG/2 ML INJ IV (20:15)
[2025-05-19] VITALS (10 sets, daily range): BP systolic 88–116; BP diastolic 51–62; PULSE 64–82; RESP 14–20; TEMP 36.6–37.1; O2SAT 92–95
[2025-05-19] MEDS: metroNIDAZOLE 500 MG/100 ML PIGGYBACK 100 MG IV ×4 (01:19→20:54)
--- NOTE | 2025-05-19 07:34 | P.PN_ITS ---
Subjective Subjective Date Patient Seen: 05/19/25 Interval history: Chief complaint: Abdominal pain nausea and vomiting secondary to sigmoid diverticulitis and colitis History of present illness: 05/18: 80 years old female with history of hypertension, hyperlipidemia, CAD, COPD, hypothyroidism, insomnia presented to the ER with left-sided abdominal pain, nausea and vomiting in the last 3 days getting progressively worse. Denies any shortness of breath, chest pain, fever, cough, diarrhea or dysuria. Her last colonoscopy was more than 10 years ago. Findings in the emergency department: Laboratory shows WBC 11.1, H&H 12.7?37.9, platelets 135, sodium 134, potassium 3.3, creatinine 1.43, blood sugar 99, lipase 147, TSH 0.57, AST 91, ALT 65, CPK 1362, magnesium 2.1, lactate 1.2. CT of the abdomen and pelvis: Narrowing of the lumen and wall thickening involving mid to distal sigmoid colon in lower abdomen/pelvis with pericolonic fat stranding concerning for acute diverticulitis versus sigmoid colitis. No abscess collection. No free fluid or free air. Significant constipation proximal to the site of inflammation. GI follow-up is recommended to rule out underlying neoplastic process. Patient admitted for IV fluids IV antibiotics bowel rest Hospital course: 05/18: Overnight patient tolerated medications pain control with satisfactory no fevers or chills or vomiting overnight 05/19: She explains that she lives in [place] with her . Her PCP is Dr. Eva Hanna. She is sleeping well with trazodone. She continues to have mild left lower abdominal pain. Review of systems: No chest pain palpitations shortness for breath No fever or chills night sweats or rigors No urinary symptom No paresthesia paresis No loss of consciousness or confusion Physical exam: Elderly female alert oriented cogent very pleasant but does appear to be not feeling well HEENT unremarkable Heart rate and rhythm regular without murmur Lungs clear bilaterally Abdomen is scant bowel sounds localized tenderness left lower quadrant no guarding no rigidity Extremities no edema Neuro alert and oriented nonfocal For objective laboratory and imaging please see bottom of the note: Assessment and plan: Acute sigmoid diverticulitis and colitis currently on ciprofloxacin and metronidazole intravenously on bowel rest * Continue bowel rest very cristina with clear liquids and advancing diet * Continue IV antibiotics * Follow up with the GI for possible neoplasm in the colon * Monitor blood culture Chronic kidney disease: * Renally dose medications * Avoid nephrotoxic agents Chronic asthma: * No signs of exacerbation DVT prophylaxis: * SCDs only * Pharmacologic contraindication due to risk of bleeding gastrointestinal Disposition: * Inpatient management patient requiring IV antibiotics IV fluids and anticipate 1-2 more days of hospitalization * Likely will be able to go home after discharge but if the patient is weakend may need evaluation Code status: * Full code blue Exam Vital Signs (past 8 hours): Fraction of Inspired Oxygen 21 SaO2/FiO2 Ratio 461 Oxygen Delivery Method Room Air Oxygen Flow Rate 0 Objective Labs 05/17/25 14:30 05/19/25 08:33 Labs: Laboratory Results - last 24 hr 05/18/25 07:50 Sodium 131 L Potassium 4.1 Chloride 107 Carbon Dioxide 17 L BUN 24 H Creatinine 1.17 H Estimated GFR 47 L BUN/Creatinine Ratio 20.5 Glucose 96 Calcium 8.4 Magnesium 1.9 [facility] Medical History (Updated 05/17/25 @ 19:20 by Andres Fong MD) Acute hyponatremia Essential hypertension Bilateral leg edema Asthma Nasal congestion CKD (chronic kidney disease) Family History Father Hyperlipidemia Social History household members: spouse Smoking Status: Former smoker Tobacco: How many years used: 30 second hand exposure: Yes (my smokes a pipe once a day.) alcohol intake: never substance use type: marijuana Assessment & Plan Time-Based Coding :: [TOTAL MINUTES] spent with patient and on the chart (including review of chart, obtaining history, exam, reviewing outside data, placing orders, documenting exam and treatment plan, and counseling patient) on [DATE]. Quality VTE Deep Vein Thrombosis/Pulmonary Embolism Present on Admission: No
[2025-05-19] MEDS: CIPROFLOXACIN 400 MG/200 ML PIGGYBACK 100 MG IV ×2 (08:33→19:48)
[2025-05-19] MEDS: SODIUM CHLORIDE 1,000 MG TABLET 1000 MG PO ×2 (08:33→20:53)
[2025-05-19] MEDS: ATORVASTATIN 20 MG TABLET 80 MG PO (08:38)
[2025-05-19] MEDS: LEVOTHYROXINE 25 MCG TABLET PO (08:39)
[2025-05-19] MEDS: MONTELUKAST 10 MG TABLET PO (08:39)
[2025-05-19] MEDS: ASPIRIN EC 81 MG TABLET PO (08:39)
[2025-05-19] MEDS: MULTIVITAMIN 1 TABLET 1 TAB PO (08:39)
[2025-05-19] MEDS: CHOLECALCIFEROL (VITAMIN D3) 1,000 UNIT TABLET 1000 UNIT PO (08:39)
[2025-05-19 09:03] LABS: Blood Urea Nitrogen 22 mg/dL (7-17); Calcium 8.2 mg/dL (8.4-10.2); Carbon Dioxide 16 mmol/L (22-32); Chloride 108 mmol/L (98-107); Estimated Glomerular Filt Rate 49 mL/min (>60); Glucose 85 mg/dL (70-99); HEMOLYSIS < 15 (0-50); Magnesium 1.9 mg/dL (1.6-2.3); Potassium 3.5 mmol/L (3.4-5.1); Sodium 133 mmol/L (137-145)
[2025-05-19] MEDS: ALBUTEROL 2.5 MG/3 ML NEB (ADULT) INH ×2 (09:10→19:30)
[2025-05-19] MEDS: BUDESONIDE 0.5 MG/2 ML NEB INH ×2 (09:10→19:30)
--- NOTE | 2025-05-19 11:13 | OT.IP.EVAL ---
Current Diagnoses Diverticulitis of intestine, part unspecified, without perforation or abscess without bleeding (05/17/25) Past Medical History (Last Updated 09/20/24 @ 13:51 by Reav Hanna DO) Acute hyponatremia Asthma Bilateral leg edema CKD (chronic kidney disease) Essential hypertension Nasal congestion Occupational Therapy Inpatient Evaluation/Re-Eval M1 PT/OT-IP Prior Functional Status Start: 05/18/25 16:14 Freq: NEEDED Status: Active Protocol: Document 05/19/25 13:07 [facility] (Rec: 05/19/25 13:16 [facility] Desktop) Medical Review Prior Functional Status Medical History Yes Reviewed Mobility and Gait Ambulated w/bilat walking canes for several years. Hx R TKR doing well. Hx CVA w/L side weakness. Has not been eating much lately due to a combination of factors including new dentures and now abd pain Activities of Daily Previously indep in ADLs, but there to assist Living and IADL's with bathing as needed. Social History Household Members spouse Living Arrangements House Number of Stairs To 1 in front, 2 in back with left rail up. Enter/Railing? Home Environment Standard Height Toilet,Walk in Shower,Built-In Shower Seat Home Equipment Hand Held Shower Additional Social will be going to [employer] tomorrow to look History Comment for a shower bench and a walker M2 OT-IP Current Condition Start: 05/19/25 13:06 Freq: Status: Active Protocol: Document 05/19/25 13:07 [facility] (Rec: 05/19/25 13:16 [facility] Desktop) Occupational Therapy Current Condition Current Condition Evaluation Date 05/19/25 Treatment Diagnosis Sigmoid diverticulitis /colitis, generalize weakness Diagnosis Onset Date 05/17/25 M3 OT- IP Subjective and Pain Start: 05/19/25 13:06 Freq: Status: Active Protocol: Document 05/19/25 13:07 [facility] (Rec: 05/19/25 13:16 [facility] Desktop) OT- Subjective Occupational Therapy Visit Type Type Initial Evaluation Visit Start Time 10:45 Visit Stop Time 11:13 Occupational Therapy Visit Comments Patient Comments Pt agreed to try to get up but feeling weak and dizzy. Patient/Caregiver To go home. Goals OT Pain Assessment Pain When Pain Assessed At Rest Pain Present Pain Present Pain Reported Location Abdominal Pain Intensity 4 Scale Used Numeric (0 - 10) M4 OT- IP ADL's Start: 05/19/25 13:06 Freq: Status: Active Protocol: Document 05/19/25 13:07 [facility] (Rec: 05/19/25 13:16 [facility] Desktop) OT [id number] Comments OT Self-Feeding Not at meal time. Comments OT ADL-Grooming Comments OT Grooming Comments Pt not wanting to do at this time. OT ADL-Oral Care Comments Oral Care Comments Pt refused. OT ADL-Dressing General Eval Lower Body Dressing Maximum Assistance Ability Areas Needing Socks Assistance OT ADL-Toileting Comments OT Toileting Pt not having to go. Comments OT ADL-Bathing Comments OT Bathing Comments Not performed. M5 OT- IP IADL's Start: 05/19/25 13:06 Freq: Status: Active Protocol: Document 05/19/25 13:07 [facility] (Rec: 05/19/25 13:16 [facility] Desktop) OT-Instrumental Activities of Daily Living Home Safety Awareness Awareness of Need Good Awareness for Assistance at Home Medication Management Medication Caregiver Administers Management Money Management Money Management Caregiver Provides Assistance Meal Preparation Meal Preparation Caregiver Provides Assist Musician Instrumental Musician Instrumental Caregiver Provides Assist M6 OT- IP Functional Cognition Start: 05/19/25 13:06 Freq: Status: Active Protocol: Document 05/19/25 13:07 [facility] (Rec: 05/19/25 13:16 [facility] Desktop) Cognitive Factors Limiting Selfcare Function Cognitive Ability Level of Alertness Alert Patient Orientation Name,Age,Birthday,Month,Date,Year,Day of Week,Place, Situation Attention Span Capable of Focused Attention,Capable of Sustained Ability Attention Ability to Follow Able to Follow One Step Commands Commands Cognitive Comments Cognitive Assessment Pt able to follow commands for OT eval. Pt get dizzy Comments and only able to tolerate coming to the edge of the bed at this time. OT- Vision and Hearing OT- Hearing Assessment OT- Hearing Hearing Impaired,Use of Hearing Aids Assessment OT- Vision Assessment Visual Acuity Glasses All The Time Visual Attentiveness WFL Occular Pursuits WFL M7 OT- IP Mobility and Balance Start: 05/19/25 13:06 Freq: Status: Active Protocol: Document 05/19/25 13:07 [facility] (Rec: 05/19/25 13:16 [facility] Desktop) OT- Bed Mobility Assessment Supine to Sit Supine to Sit Assist Contact Guard Assistance OT-Transfer Assessment Comments Mobility Comments SUPine BP 89/46, 84/40, sitting up in the bed 1/2 to the edge of bed 92/71 and then having to lie down 102/ 45. Pt feeling weak and dizzy , nursing notified. M8 OT- IP Objective Assessments Start: 05/19/25 13:06 Freq: Status: Active Protocol: Document 05/19/25 13:07 [facility] (Rec: 05/19/25 13:16 [facility] Desktop) OT Gross Range of Motion Upper Extremity Range of Motion Assessment Within Functional Limits OT Strength Comments Strength Comments grossly WFL OT- Coordination Assessment Upper Extremity Finger to Nose Test Within Functional Limits M9 OT- IP Assessment and Plan Start: 05/19/25 13:06 Freq: Status: Active Protocol: Document 05/19/25 13:07 [facility] (Rec: 05/19/25 13:16 [facility] Desktop) OT Summary Assessment and Plan Potential Rehabilitation Good Potential Analytic Complexity Moderate at Evaluation Summary OT Impairments Pain,Balance,Functional Mobility,Grooming,Dressing, Toileting,Bathing,Toilet Transfers,Shower Transfers, Activity Tolerance Progress Towards Slow Progress due to Medical Issues Goals Assessment Summary Pt MOD complexity and main barriers are steps, decreased activity tolerance, and just able to tolerate trying to get to the edge of bed before feeling weak and dizzy. When medically stable, pt will benefit from 24/7 available assist at home with home health and bath aid. Goals Self-Feeding Goal Independent Grooming Goal Independent Dressing Goal Independent Toileting Goal Independent Bathing Goal Standby Assistance Toilet Transfer Goal Independent Shower Transfer Goal Standby Assistance Days to Meet Goals 7 Frequency of Treatment Other frequency 5x/week Treatment Plan OT Treatment Plan ADL Training,Functional Mobility,Patient/Family Education,Discharge Planning Other Treatment Standing ADL's pending her BP. Recommendations and Next Treatment Focus Discharge Recommendations OT Discharge Home with 24/7 Assist Available,Home Health Recommendations Transportation Needs Private Vehicle at Discharge
--- NOTE | 2025-05-19 11:25 | CM.DPNOTE ---
DCP Note COLLISION TECHNICIAN reviewed EMR PT/OT pending. per provider in morning rounds, anticipate dc tomorrow vs Thursday. COLLISION TECHNICIAN completed f2f and order. sent to Eva at [facility]. confirmed they can accept, just waiting on dc info/therapy evals per RN, did not have much of full liquid diet breakfast. P: anticipate dc home with spouse pending tolerating diet/medical stability. [facility] to follow at home as well. will continue to follow closely in case any additional DCP needs should arise YENNIFER Javier
[2025-05-19] MEDS: SODIUM CHLORIDE 0.9% 1,000 ML 500 ML IV (12:49)
[2025-05-19] MEDS: POTASSIUM CHLORIDE 20 MEQ TAB PO (12:56)
--- NOTE | 2025-05-19 14:35 | PT.IPTN ---
Current Diagnoses Diverticulitis of intestine, part unspecified, without perforation or abscess without bleeding (05/17/25) Physical Therapy Treatment Note M2 PT-IP Current Condition Start: 05/18/25 16:14 Freq: NEEDED Status: Active Protocol: Document 05/18/25 16:15 KJ (Rec: 05/18/25 16:24 KJ [id number]) Physical Therapy Current Condition Current Condition Evaluation Date 05/18/25 Treatment Diagnosis Impaired mobility, poor activity tolerance Onset Date 05/11/25 M3 PT-IP Subjective Start: 05/18/25 16:14 Freq: NEEDED Status: Active Protocol: Document 05/19/25 14:35 AB (Rec: 05/19/25 16:48 AB [id number]) Subjective Physical Therapy Visit Type Type Treatment Note Visit Start Time 14:35 Visit Stop Time 15:00 Number of MEDICAL LEAD Visits 0 Physical Therapy Visit Comments Patient Comments agreeable to do PT Therapy Pain Assessment Pain When Pain Assessed At Rest Pain Present Pain Present Pain Reported Location Abdominal Pain Intensity 4 Scale Used Numeric (0 - 10) Pain Behaviors Guarding Pain Management Distraction,Modification of Treatment,Re-positioning, Techniques Timing of Activity with Medications M4 PT-IP Mobility and Gait Start: 05/18/25 16:14 Freq: NEEDED Status: Active Protocol: Document 05/19/25 14:35 AB (Rec: 05/19/25 16:48 AB [id number]) PT-Bed Mobility Assessment Supine to Sit Supine to Sit Minimal Assistance PT-Transfer Assessment Sit to and From Stand Sit to and from Moderate Assistance,1 Person Assistance,Use of Upper Stand Extremities Equipment Transfer Assistive Gait Belt,Front Wheeled Walker Device Orthotic/Prosthetic No Devices or Brace: Transfers Transfer Destination Chair Transfer Technique ambulated Transfer Ability Level of Assist Moderate Assistance,1 Person Assistance,Use of Upper Extremities Comments Mobility Comments pt in bed and agreeable to do PT> BP in supine: 114/59 . completed supine to sit min A and cues. BP in sittin/57. pt was able to sit on EOB CGA. BP checked again after ~ 2 min. BP: 115/57. completed sit to stand mod A and cues. pt ambulated ~ 15 ft in room using FWW mod A and cues and sat on chair. BP checked : 94/59. c/o lightheadedness. elevated LE and positioned on the chair. BP checked again: 118/57. call light and table placed within reach. informed nurse regarding BP. Gait Assessment Gait Gait Assistance Moderate Assistance Required: Distance (Feet) 15 Able to Maintain Yes Weight Bearing Status During Gait Assistive Devices Assistive Device Gait Belt,Front Wheeled Walker Orthotic/Prosthetic No Devices or Brace: Gait Deviations General Gait Pattern Ataxic,Decreased Stride Length,Decreased Feet Clearance ,Step-to Gait Factors Limiting Gait Function Factors Limiting Decreased Activity Tolerance,Decreased Strength, Gait Function Difficulty Following Directions,Limited Range of Motion ,Pain,Poor Balance,Poor Safety Awareness M5 PT-IP Objective Assessments Start: 05/18/25 16:14 Freq: NEEDED Status: Active Protocol: Document 05/18/25 16:15 KJ (Rec: 05/18/25 16:24 KJ [id number]) Orientation Orientation/Cognition Level of Alertness Alert Orientation Name,Age,Birthday,Month,Date,Year,Day of Week,Place, Situation Language Function No Deficits Noted Ability Safety Awareness Understands Safety Issues Memory Description No Deficits Noted Gross Range of Motion Upper Extremity ROM Assessment Within Functional Limits Lower Extremity ROM Assessment Within Functional Limits Strength Upper Extremity Strength Assessment Within Functional Limits Lower Extremity Strength Assessment Within Functional Limits Comments Strength Comments Pt reported L sided weakness however tested WFL bilat ( stronger salad bar clerk on L than R) M6 PT-IP Treatment Start: 05/18/25 16:14 Freq: NEEDED Status: Active Protocol: Document 05/19/25 14:35 AB (Rec: 05/19/25 16:48 AB [id number]) Physical Therapy Treatment Education Education Provided Safety M7 PT-IP Assessment and Plan Start: 05/18/25 16:14 Freq: NEEDED Status: Active Protocol: Document 05/19/25 14:35 AB (Rec: 05/19/25 16:48 AB [id number]) PT Summary Assessment and Plan Potential Rehabilitation Fair Potential Summary Impairments Pain,ROM,Strength,Balance,Coordination,Sensation,Tone, Cognition,Bed Mobility,Transfers,Gait,Activity Tolerance Progress Towards Slow Progress due to Medical Issues,Slow Progress due Goals to Activity Tolerance,Slow Progress - Other Assessment Summary pt requiring mod A for sit to stand and ambulation using FWW and has decrease activity tolerance affecting mobility. pt with c/o lightheadedness. BP decreased to 94/59 after ambulation from 115/57 in sititng. pt lives with spouse and spouse to assist if needed. d/c plan depending on progress but at this time, pt may require SNF rehab. will continue to assess progress and when appropriate, can conduct caregiver training. Goals Bed Mobility Goal Independent Transfer Goal Standby Assistance,Front Wheeled Walker Gait Goal Standby Assistance,Front Wheel Walker Gait Distance 50 Other Goals ascend/descend 2 steps w/rail Frequency of Treatment Frequency Of Once a Day Treatment Treatment Plan Physical Therapy Bed Mobility Training,Transfer Training,Gait Training, Treatment Plan Therapeutic Exercise Precautions Other Precautions BP Discharge Recommendations PT Discharge Home vs SNF Recommendations - PT assist 1-2
[2025-05-19] MEDS: SODIUM CHLORIDE 0.9% 1,000 ML 100 ML IV (15:12)
[2025-05-19] MEDS: SODIUM CHLORIDE 0.9% 1,000 ML 1000 ML IV (16:41)
[2025-05-19] MEDS: MELATONIN 3 MG TABLET 6 MG PO (20:53)
[2025-05-20] MEDS: metroNIDAZOLE 500 MG/100 ML PIGGYBACK 100 MG IV ×2 (02:01→09:11)
[2025-05-20] MEDS: SODIUM CHLORIDE 0.9% 1,000 ML 100 ML IV (05:24)
[2025-05-20 07:06] LABS: Blood Urea Nitrogen 16 mg/dL (7-17); Calcium 7.8 mg/dL (8.4-10.2); Carbon Dioxide 19 mmol/L (22-32); Chloride 109 mmol/L (98-107); Estimated Glomerular Filt Rate 51 mL/min (>60); Glucose 95 mg/dL (70-99); HEMOLYSIS < 15 (0-50); Magnesium 1.8 mg/dL (1.6-2.3); Potassium 3.5 mmol/L (3.4-5.1); Sodium 131 mmol/L (137-145)
--- NOTE | 2025-05-20 07:24 | P.PN_ITS ---
Subjective Subjective Date Patient Seen: 05/20/25 Interval history: Abdominal pain nausea and vomiting secondary to sigmoid diverticulitis and colitis History of present illness: 05/18: 80 years old female with history of hypertension, hyperlipidemia, CAD, COPD, hypothyroidism, insomnia presented to the ER with left-sided abdominal pain, nausea and vomiting in the last 3 days getting progressively worse. Denies any shortness of breath, chest pain, fever, cough, diarrhea or dysuria. Her last colonoscopy was more than 10 years ago. Findings in the emergency department: Laboratory shows WBC 11.1, H&H 12.7?37.9, platelets 135, sodium 134, potassium 3.3, creatinine 1.43, blood sugar 99, lipase 147, TSH 0.57, AST 91, ALT 65, CPK 1362, magnesium 2.1, lactate 1.2. CT of the abdomen and pelvis: Narrowing of the lumen and wall thickening involving mid to distal sigmoid colon in lower abdomen/pelvis with pericolonic fat stranding concerning for acute diverticulitis versus sigmoid colitis. No abscess collection. No free fluid or free air. Significant constipation proximal to the site of inflammation. GI follow-up is recommended to rule out underlying neoplastic process. Patient admitted for IV fluids IV antibiotics bowel rest Hospital course: 05/18: Overnight patient tolerated medications pain control with satisfactory no fevers or chills or vomiting overnight 05/19: She explains that she lives in [place] with her . Her PCP is Dr. Eva Hanna. She is sleeping well with trazodone. She continues to have mild left lower abdominal pain. Review of systems: No chest pain palpitations shortness for breath No fever or chills night sweats or rigors No urinary symptom No paresthesia paresis No loss of consciousness or confusion Physical exam: Elderly female alert oriented cogent very pleasant but does appear to be not feeling well HEENT unremarkable Heart rate and rhythm regular without murmur Lungs clear bilaterally Abdomen is scant bowel sounds localized tenderness left lower quadrant no guarding no rigidity Extremities no edema Neuro alert and oriented nonfocal For objective laboratory and imaging please see bottom of the note: Assessment and plan: Acute sigmoid diverticulitis and colitis currently on ciprofloxacin and metronidazole intravenously on bowel rest * Continue bowel rest very cristina with clear liquids and advancing diet * Continue IV antibiotics * Follow up with the GI for possible neoplasm in the colon * Monitor blood culture Chronic kidney disease: * Renally dose medications * Avoid nephrotoxic agentsChronic asthma: * No signs of exacerbationDVT prophylaxis: * SCDs only * Pharmacologic contraindication due to risk of bleeding gastrointestinalDisposition: * Inpatient management patient requiring IV antibiotics IV fluids and anticipate 1-2 more days of hospitalization * Likely will be able to go home after discharge but if the patient is weakend may need evaluationCode status: * Full code blue Exam Vital Signs (past 8 hours): Fraction of Inspired Oxygen 21 SaO2/FiO2 Ratio 438 Oxygen Delivery Method Room Air Oxygen Flow Rate 0 Objective Labs 05/17/25 14:30 05/20/25 06:36 Labs: Laboratory Results - last 24 hr 05/19/25 05/20/25 08:33 06:36 Sodium 133 L 131 L Potassium 3.5 3.5 Chloride 108 H 109 H Carbon Dioxide 16 L 19 L BUN 22 H 16 Creatinine 1.13 H 1.10 H Estimated GFR 49 L 51 L BUN/Creatinine Ratio 19.5 14.5 Glucose 85 95 Calcium 8.2 L 7.8 L Magnesium 1.9 1.8 PFS Medical History (Updated 05/17/25 @ 19:20 by Andres Fong MD) Acute hyponatremia Essential hypertension Bilateral leg edema Asthma Nasal congestion CKD (chronic kidney disease) Family History Father Hyperlipidemia Social History household members: spouse Smoking Status: Former smoker Tobacco: How many years used: 30 second hand exposure: Yes (my smokes a pipe once a day.) alcohol intake: never substance use type: marijuana Assessment & Plan Time-Based Coding :: [TOTAL MINUTES] spent with patient and on the chart (including review of chart, obtaining history, exam, reviewing outside data, placing orders, documenting exam and treatment plan, and counseling patient) on [DATE]. Quality VTE Deep Vein Thrombosis/Pulmonary Embolism Present on Admission: No
[2025-05-20] MEDS: CIPROFLOXACIN 400 MG/200 ML PIGGYBACK 100 MG IV (07:52)
[2025-05-20] MEDS: ALBUTEROL 2.5 MG/3 ML NEB (ADULT) INH (09:02)
[2025-05-20] MEDS: BUDESONIDE 0.5 MG/2 ML NEB INH (09:03)
[2025-05-20 09:10] VITALS: PULSE 75; RESP 16; O2SAT 95
[2025-05-20 09:45] VITALS: BP 105/59; PULSE 79
[2025-05-20] MEDS: ATORVASTATIN 20 MG TABLET 80 MG PO (09:46)
[2025-05-20] MEDS: MULTIVITAMIN 1 TABLET 1 TAB PO (09:46)
[2025-05-20] MEDS: CHOLECALCIFEROL (VITAMIN D3) 1,000 UNIT TABLET 1000 UNIT PO (09:46)
[2025-05-20] MEDS: ASPIRIN EC 81 MG TABLET PO (09:46)
[2025-05-20] MEDS: SODIUM CHLORIDE 1,000 MG TABLET 1000 MG PO (09:46)
[2025-05-20] MEDS: MONTELUKAST 10 MG TABLET PO (09:48)
[2025-05-20] MEDS: LEVOTHYROXINE 25 MCG TABLET PO (09:48)
--- NOTE | 2025-05-20 11:20 | PT.IPTN ---
Current Diagnoses Diverticulitis of intestine, part unspecified, without perforation or abscess without bleeding (05/17/25) Physical Therapy Treatment Note M2 PT-IP Current Condition Start: 05/18/25 16:14 Freq: NEEDED Status: Active Protocol: Document 05/18/25 16:15 KJ (Rec: 05/18/25 16:24 KJ [id number]) Physical Therapy Current Condition Current Condition Evaluation Date 05/18/25 Treatment Diagnosis Impaired mobility, poor activity tolerance Onset Date 05/11/25 M3 PT-IP Subjective Start: 05/18/25 16:14 Freq: NEEDED Status: Active Protocol: Document 05/20/25 11:20 AB (Rec: 05/20/25 13:25 AB Desktop) Subjective Physical Therapy Visit Type Type Treatment Note Visit Start Time 11:20 Visit Stop Time 11:55 Number of [employer] Visits 0 Physical Therapy Visit Comments Patient Comments agreeable to do PT Therapy Pain Assessment Pain When Pain Assessed At Rest Pain Present Pain Present Pain Reported Location Abdominal Pain Scale Used some pain per pt Pain Management Distraction,Modification of Treatment Techniques M4 PT-IP Mobility and Gait Start: 05/18/25 16:14 Freq: NEEDED Status: Active Protocol: Document 05/20/25 11:20 AB (Rec: 05/20/25 13:25 AB Desktop) PT-Bed Mobility Assessment Supine to Sit Supine to Sit Standby Assistance PT-Transfer Assessment Sit to and From Stand Sit to and from Contact Guard Assistance,Minimal Assistance,1 Person Stand Assistance,Use of Upper Extremities Equipment Transfer Assistive Gait Belt,Front Wheeled Walker Device Orthotic/Prosthetic No Devices or Brace: Transfers Transfer Destination Chair Transfer Technique ambulated Transfer Ability Level of Assist Contact Guard Assistance,1 Person Assistance,Use of Upper Extremities Comments Mobility Comments pt in bed and agreeable to do PT. BP: 111/64. completed supine to sit SBA. able to sit on EOB SBA. BP: 112/64 . no c/o dizziness/lightheadedness. sit to stand from EOB CGA to min A requiring 2 attempts to be able to stand up. pt ambulated in room ~ 40 ft using FWW CGA to min A and cues. c/o initial dizziness but dissipated after a few feet of walking. pt sat on chair. BP: 119 /68. pt completed up/down step stool using FWW and requiring min to mod A and cues. only able to complete 1x due to c/o fatigue. pt agreed to stay up on the chair. positioned pt on the chair. call light and table placed within reach. informed pt regarding safety. pt stated that spouse will be able to assist her. pt also will call her daughter to assist her when she gets home. also informed pt regarding pacing activities and also have resting chair stations set up for safety. pt understood . Gait Assessment Gait Gait Assistance Contact Guard Assist,Minimum Assistance Required: Distance (Feet) 40 Able to Maintain Yes Weight Bearing Status During Gait Assistive Devices Assistive Device Gait Belt,Front Wheeled Walker Orthotic/Prosthetic No Devices or Brace: Gait Deviations General Gait Pattern Decreased Stride Length,Decreased Feet Clearance Factors Limiting Gait Function Factors Limiting Decreased Activity Tolerance,Decreased Strength, Gait Function Difficulty Following Directions,Limited Range of Motion ,Pain,Poor Balance,Poor Safety Awareness Stair Climbing Assessment Evaluation Level of Assist On Minimal Assistance,Moderate Assistance,1 Person Stairs Assistance Devices Stair Climbing Left Railing,Right Railing Assistive Devices Technique/Endurance Stair Climbing Ascend and Descend Direction Stair Climbing Step to Step Technique Number of Steps 1 Climbed Stair Climbing Set # 1 Repetitions (reps) M5 PT-IP Objective Assessments Start: 05/18/25 16:14 Freq: NEEDED Status: Active Protocol: Document 05/18/25 16:15 KJ (Rec: 05/18/25 16:24 KJ [id number]) Orientation Orientation/Cognition Level of Alertness Alert Orientation Name,Age,Birthday,Month,Date,Year,Day of Week,Place, Situation Language Function No Deficits Noted Ability Safety Awareness Understands Safety Issues Memory Description No Deficits Noted Gross Range of Motion Upper Extremity ROM Assessment Within Functional Limits Lower Extremity ROM Assessment Within Functional Limits Strength Upper Extremity Strength Assessment Within Functional Limits Lower Extremity Strength Assessment Within Functional Limits Comments Strength Comments Pt reported L sided weakness however tested WFL bilat ( stronger risk 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 on L than R) M6 PT-IP Treatment Start: 05/18/25 16:14 Freq: NEEDED Status: Active Protocol: Document 05/20/25 11:20 AB (Rec: 05/20/25 13: AB Desktop) Physical Therapy Treatment Education Education Provided Safety M7 PT-IP Assessment and Plan Start: 05/18/25 16:14 Freq: NEEDED Status: Active Protocol: Document 05/20/25 11:20 AB (Rec: 05/20/25 13:25 AB Desktop) PT Summary Assessment and Plan Potential Rehabilitation Fair Potential Summary Impairments Pain,ROM,Strength,Balance,Coordination,Sensation,Bed Mobility,Transfers,Gait,Activity Tolerance Progress Towards Slow Progress due to Medical Issues,Slow Progress due Goals to Activity Tolerance Assessment Summary pt slowly progressing with mobilities and requires CGA to min A for sit to stand, CGA for ambulation and min to mod A for up/down step. pt will require 24/7 assist and pt stated that spouse will be able to assist her. pt will also need HHPT. Goals Bed Mobility Goal Independent Transfer Goal Standby Assistance,Front Wheeled Walker Gait Goal Standby Assistance,Front Wheel Walker Gait Distance 50 Other Goals ascend/descend 2 steps L rail ascending Frequency of Treatment Frequency Of Once a Day Treatment Treatment Plan Physical Therapy Bed Mobility Training,Transfer Training,Gait Training, Treatment Plan Therapeutic Exercise Discharge Recommendations PT Discharge Home with 24/7 Assist Available,Home Health,SNF Rehab, Recommendations Home vs SNF - PT assist 1
--- NOTE | 2025-05-20 12:13 | CM.DPNOTE ---
Addendum entered by YENNIFER Javier 05/20/25 14:48: dc summary sent to Bessie LARSON Original Note: DCP note [employer] reviewed EMR per provider in morning rounds, pt to DC today. agreeable to HH. [employer] met with pt in room. eager to go home and rest with cat. agreeable to Bessie RASCON. [employer] provided brochure. [employer] answered questions to best of ability. report spouse will come and pick her up. denies other questions or DCP concerns/needs at this time. P: dc home with spovicente and Bessie RASCON to follow. will send DC summary as soon as signed by provider. will continue to follow as needed YENNIFER Javier
--- NOTE | 2025-05-20 13:49 | P.DS_ITS ---
History of Present Illness History of Present Illness Date Patient Seen: 05/20/25 Chief complaint: Stomach pain, nausea, bloody stools 3 days Narrative: 80 years old female with history of hypertension, hyperlipidemia, CAD, COPD, hypothyroidism, insomnia presented to the ER with left-sided abdominal pain, nausea and vomiting in the last 3 days getting progressively worse. Denies any shortness of breath, chest pain, fever, cough, diarrhea or dysuria. Her last colonoscopy was more than 10 years ago. Findings in the emergency department: Laboratory shows WBC 11.1, H&H 12.7?37.9, platelets 135, sodium 134, potassium 3.3, creatinine 1.43, blood sugar 99, lipase 147, TSH 0.57, AST 91, ALT 65, CPK 1362, magnesium 2.1, lactate 1.2. CT of the abdomen and pelvis: Narrowing of the lumen and wall thickening involving mid to distal sigmoid colon in lower abdomen/pelvis with pericolonic fat stranding concerning for acute diverticulitis versus sigmoid colitis. No abscess collection. No free fluid or free air. Significant constipation proximal to the site of inflammation. GI follow-up is recommended to rule out underlying neoplastic process. Patient admitted for IV fluids IV antibiotics bowel rest Discharge Providers Provider Date of admission: 05/17/25 20:08 Discharge Date: 05/20/25 Primary care physician: Reva Hanna DO Consults: 05/18/25 14:56 Consult to Occupational Therapy Evaluate & Treat Comment: Physician Instructions: Evaluate and treat Consult to Physical Therapy Evaluate & Treat Comment: Physician Instructions: Evaluate and Treat 05/19/25 10:57 Consult to Home Health Routine Comment: Reason For Exam: RN/PT/OT/Bath aide Discharge provider: Zack Pryor MD Summary Hospital Course Hospital Course: Acute sigmoid diverticulitis and colitis * After appropriate bowel rest the patient was able to tolerate oral diet well. * Treated with IV Cipro and Flagyl, at discharge these were changed to oral to complete a 10 day course. * Follow up with the GI for possible neoplasm in the colon Hypertension * Blood pressure has been very low when standing, down to the 70s, 80s, recovering back up above 100 when supine. * Amlodipine and carvedilol doses were held and then cut in half at the time of discharge. Currently carvedilol 3.125 mg b.i.d. and amlodipine 2.5 mg daily. Chronic kidney disease: * Renally dose medications * Avoid nephrotoxic agents Chronic asthma: * No signs of exacerbation Status at Discharge Cognitive/behavioral status at discharge: oriented Functional status at discharge: independent ambulation Overall status at discharge: patient is back to baseline Time Spent with Patient Time spent: Less than 30 minutes Exam Vital Signs (past 8 hours): - 05/20/25 09:10 05/20/25 09:45 Pulse Rate 75 79 Respiratory Rate 16 Blood Pressure 105/59 L Pulse Oximetry 95 Oxygen Delivery Method Room Air Fraction of Inspired Oxygen 21 SaO2/FiO2 Ratio 438 Oxygen Delivery Method Room Air Oxygen Flow Rate 0 Objective Labs 05/17/25 14:30 05/20/25 06:36 Labs: Laboratory Results - last 24 hr 05/20/25 06:36 Sodium 131 L Potassium 3.5 Chloride 109 H Carbon Dioxide 19 L BUN 16 Creatinine 1.10 H Estimated GFR 51 L BUN/Creatinine Ratio 14.5 Glucose 95 Calcium 7.8 L Magnesium 1.8 PFSH Medical History (Updated 05/17/25 @ 19:20 by Andres Fong MD) Acute hyponatremia Essential hypertension Bilateral leg edema Asthma Nasal congestion CKD (chronic kidney disease) Family History Father Hyperlipidemia Social History household members: spouse Smoking Status: Former smoker Tobacco: How many years used: 30 second hand exposure: Yes (my smokes a pipe once a day.) alcohol intake: never substance use type: marijuana Discharge Plan Discharge Plan Patient Disposition: Home Health Service Transfer to: Home Health, Other Provider Discharge Comment: Follow up with Dr. Reva Hanna in 2 weeks. Discharge orders & Medications Prescriptions: New ciprofloxacin HCl [Cipro] 500 mg tablet 500 mg PO BID Qty: 14 0RF metronidazole 500 mg tablet 500 mg PO Q8H Qty: 21 0RF Continued cholecalciferol (vitamin D3) 1,000 unit capsule 1,000 unit PO DAILY multivitamin Tablet 1 tab PO DAILY fluticasone propionate 50 mcg/actuation spray,suspension 1 spray intranasal BID PRN (Reason: congestion) Qty: 16 11RF montelukast 10 mg tablet 10 mg PO DAILY Qty: 90 1RF budesonide-formoterol [Breyna] 160-4.5 mcg/actuation HFA aerosol inhaler 1 puff INHALATION BID Qty: 30.9 3RF aspirin 81 mg capsule 81 mg PO DAILY Qty: 90 3RF levothyroxine 25 mcg tablet 25 mcg PO DAILY Qty: 80 3RF Rx Instructions: doesn't take on Sundays trazodone 50 mg tablet 25 mg PO ONCE PM PRN (Reason: for insomnia) Qty: 30 2RF rosuvastatin 40 mg tablet 40 mg PO DAILY Qty: 90 3RF magnesium oxide 500 mg capsule 500 mg PO BID PRN (Reason: constipation) Qty: 90 0RF B Complex-Vitamin B12 1 tab PO DAILY sodium chloride 1 gram Tablet 1,000 mg PO BID Changed carvedilol 6.25 mg tablet 3.125 mg PO BID Qty: 180 3RF amlodipine 5 mg tablet 2.5 mg PO DAILY Qty: 90 3RF Follow up/Referrals: Reva Hanna DO [Primary Care Provider, Medical] Visit Report/Discharge Packet Instructions: DI for Dehydration -- Adult, Acute Kidney Injury, DI for Diverticulitis, How to Prevent Falls Stand Alone Forms: Patient Portal/API, Stroke Signs & Symptoms Discharge Data Primary Care Provider: Reva Hanna Quality VTE Deep Vein Thrombosis/Pulmonary Embolism Present on Admission: No
--- NOTE | 2025-05-20 15:40 | PC.NURSE ---
Day shift: Paperwork signed and all questions answered. Pt has all personal belongings. Pt also has the hard scripts for new meds. Daughter in room for teachings. Taken to car by this real estate underwriter at approx 1535. Spouse is driving her home. Daughter will be there to help get her situated. Home health is planned. Pt also plans to make a f/u with her PCP JESSE.
== END 2025-05-20 15:35 | disposition home health service (06) | DRG 392 ==
LOC: ED 20:05 → AC 20:08
PROVIDERS: Emergency Medicine; Admitting Provider Internal Medicine; Emergency Provider Emergency Medicine; PCP Family Medicine; Visit Provider Internal Medicine
DX: K57.32 Diverticulitis of large intestine without perforation or abscess without bleeding (principal); K52.9 Noninfective gastroenteritis and colitis, unspecified; I25.10 Atherosclerotic heart disease of native coronary artery without angina pectoris; E78.5 Hyperlipidemia, unspecified; E03.9 Hypothyroidism, unspecified; G47.00 Insomnia, unspecified; J44.9 Chronic obstructive pulmonary disease, unspecified; N18.9 Chronic kidney disease, unspecified; E87.6 Hypokalemia; I12.9 Hypertensive chronic kidney disease with stage 1 through stage 4 chronic kidney disease, or unspecified chronic kidney disease; Z87.891 Personal history of nicotine dependence; Z79.890 Hormone replacement therapy; Z88.0 Allergy status to penicillin
CPT/HCPCS: 36415; 70450; 71045; 74174; 80048; 80053; 80061; 82550; 83605; 83690; 83735; 84443; 84484; 85025; 93005; 94640; 96365; 96367; 96368; 96375; 97110; 97116; 97161; 97166; 97530; 99284; 99291; J0744; J1171; J2405; J7613; Q9967

== ENCOUNTER → 2025-07-10 08:40 | Outpatient (CLI) | payer MEDICARE, OTHER, SELFPAY ==
[2025-05-22 11:36] VITALS: BMI 22.1
[2025-07-10 09:20] LABS: Alanine Aminotransferase 19 IU/L (<35); Albumin 3.9 g/dL (3.5-5.0); Albumin Globulin Ratio 1.3 (1.0-2.8); Alkaline Phosphatase 79 U/L (38-126); Blood Urea Nitrogen 23 mg/dL (7-17); Calcium 9.7 mg/dL (8.4-10.2); Carbon Dioxide 27 mmol/L (22-32); Chloride 105 mmol/L (98-107); Cholesterol 127 mg/dL (140-199); Estimated Glomerular Filt Rate 51 mL/min (>60); Globulin 3.0 g/dL (1.7-4.1); Glucose 98 mg/dL (70-99); HDL Cholesterol 45 mg/dL (40-60); HEMOLYSIS < 15 (0-50); Potassium 4.0 mmol/L (3.4-5.1); Sodium 138 mmol/L (137-145); Total Protein 6.9 g/dL (6.3-8.2); Triglycerides 97 mg/dL (35-150)
[2025-07-10 09:50] LABS: TSH w/ Reflex to FT4 2.06 uIU/mL (0.47-4.68)
== END ==
PROVIDERS: PCP Family Medicine; Referring Provider Family Medicine; Visit Provider Family Medicine
DX: E78.2 Mixed hyperlipidemia (principal); E03.8 Other specified hypothyroidism; E87.1 Hypo-osmolality and hyponatremia
CPT/HCPCS: 36415; 80053; 80061; 84443